=== PATIENT | female | born 1970 | race Caucasian/White ===

== ENCOUNTER 2016-10-25 08:46 | Day surgery (SDC) | payer MEDICAID ==
[~2016-10-25 08:46] MED LIST: ALDA100T PO; AMOX500C PO; FURO1TAB60 PO; LACT10SO PO; PROT40TA PO; VITATAB11 PO
[2016-10-25 09:32] VITALS: BP 98/59; PULSE 79; RESP 14; TEMP 98.5; O2SAT 100
[2016-10-25 10:57] VITALS: BP 124/71; PULSE 100; RESP 18; O2SAT 100
[2016-10-25 11:09] VITALS: BP 131/74; PULSE 96; RESP 18; O2SAT 98
[2016-10-25 12:06] VITALS: BP 115/69; PULSE 96; RESP 18; TEMP 98.8; O2SAT 100
[2016-10-25] MEDS ORDERED: ALBUMIN HUMAN 25% 12.5GM-W/25GM FOR 37.5GM IV ONE (12:30)
[2016-10-25] MEDS ORDERED: ALBUMIN HUMAN 25% 25GM-W/12.5GM FOR 37.5GM IV ONE (12:30)
[2016-10-25] MEDS ORDERED: HYDROmorphone HCL PF 1 MG/ML VIAL ONE (12:57)
[2016-10-25 13:25] VITALS: BP 118/64; PULSE 88; RESP 16; O2SAT 99
[2016-10-25] MEDS ORDERED: LIDOCAINE HCL 1% 30 ML VIAL ONE (14:09)
[2016-10-25] MEDS ORDERED: SODIUM BICARBONATE 8.4% INJ 50 ML ONE (14:09)
--- NOTE | 2016-10-25 14:22 | RADRPT ---
EXAM DATE/TIME: 10/25/2016 10:00 [facility] COMPARISON: No previous studies available for comparison. INDICATIONS : Ascites. MEDICAL HISTORY : Cirrhosis. Anemia. SURGICAL HISTORY : Hysterectomy. Cholecystectomy. section. Appendectomy. Tubal ligation. TIPS. ENCOUNTER: Sequela ACUITY: 2 weeks PAIN SCORE: 9/10 LOCATION: Left lower quadrant FLUID: Total volume of 6600 cc of clear, yellow fluid was removed. Fluid was discarded. Paracentesis was therapeutic only. Post procedure scanning reveals no hematoma or other complication. TECHNIQUE: 1. Ultrasound guidance for abdominal paracentesis. 2. Paracentesis. The risks, benefits, and alternatives to ultrasound guided paracentesis were explained to the patient in detail including the risk of bleeding and infection. Written and verbal informed consent was obt ained. With the patient on the ultrasound table, ultrasound imaging was used to select the most appropriate approach for paracentesis. Overlying skin was prepped and draped in the usual sterile fashion and wi th a local anesthetic, a dermatotomy was made with an 11 blade scalpel. A 6 Gambian Cit-K-cfepdysm ca theter was introduced into the peritoneal cavity and fluid was collected. The catheter was initially placed in the right lower quadrant however soon after placement the fluid stopped draining. The pat ter was adherent to perineum/bowel. The catheter was eventually withdrawn and a new catheter placed w ithin the left lower quadrant. Patient did experience pain in the right lower quadrant. The patient tolerated the procedure well and left the ultrasound suite in stable condition. CONCLUSION: Successful paracentesis. Samuel Delcid MD on October 25, 2016 at 14:19 Board Certified Radiologist. This report was verified electronically.
[2016-11-29] MEDS ORDERED: FERR325T PO (09:12)
[2016-11-29] MEDS ORDERED: LAMI1GEL TOPICAL (09:12)
[2016-11-29] MEDS ORDERED: AUGM500T7 PO (09:15)
[2016-12-06] MEDS ORDERED: AUGM500T7 PO (16:59)
[2016-12-06] MEDS ORDERED: PROT40TA PO ×2 (17:01→17:02)
[2017-02-14] MEDS ORDERED: PROT40TA PO (13:09)
== END 2016-10-25 13:45 | disposition home or self-care (01) ==
LOC: HRAD 08:46 → HRIP 08:46 → HRAD 13:45
PROVIDERS: ATTEND Family Medicine
DX: R18.8 Other ascites (principal)
CPT/HCPCS: 49083; 96365; C1729; J1170; J3010; P9047

== ENCOUNTER 2016-11-08 07:49 | Day surgery (SDC) | payer MEDICAID ==
[2016-11-08 08:16] VITALS: BP 118/66; PULSE 90; RESP 14; TEMP 97.5; O2SAT 99
[2016-11-08 10:20] VITALS: BP 123/65; PULSE 108; RESP 17; O2SAT 100
[2016-11-08 10:35] VITALS: BP 127/68; PULSE 97; RESP 18; O2SAT 100
[2016-11-08] MEDS ORDERED: ALBUMIN HUMAN 25% 50 GM IV ONE (10:45)
--- NOTE | 2016-11-08 12:06 | RADRPT ---
EXAM DATE/TIME: 11/08/2016 08:28 [facility] COMPARISON: EXTERNAL COMPARISON: US GUIDED ABD PARACENTESIS, October 25, 2016, 10:00. [facility], US ABDOMEN, COMPLETE, Oct [id number]. CT ABDOMEN & PELVIS W CONTRAST, June 19, 2016. INDICATIONS : Ascites. MEDICAL HISTORY : Cirrhosis. Hepatitis. Anemia. Ascites. SURGICAL HISTORY : Hysterectomy. Cholecystectomy. section. Appendectomy. Tubal ligation. TIPS. ENCOUNTER: Sequela ACUITY: 2 weeks PAIN SCORE: 6/10 LOCATION: Left lower quadrant FLUID: Total volume of 7700 cc of clear, yellow fluid was removed. Fluid was discarded. Paracentesis was therapeutic only. Post procedure scanning reveals no hematoma or other complication. TECHNIQUE: 1. Ultrasound guidance for abdominal paracentesis. 2. Paracentesis. The risks, benefits, and alternatives to ultrasound guided paracentesis were explained to the patient in detail including the risk of bleeding and infection. Written and verbal informed consent was obt ained. With the patient on the ultrasound table, ultrasound imaging was used to select the most appropriate approach for paracentesis. Overlying skin was prepped and draped in the usual sterile fashion and wi th a local anesthetic, a dermatotomy was made with an 11 blade scalpel. A 6 Irish Aoc-B-tywskkid ca theter was introduced into the peritoneal cavity and fluid was collected. The patient tolerated the procedure well and left the ultrasound suite in stable condition. CONCLUSION: Uncomplicated ultrasound guided paracentesis. Brian Bridges MD on November 08, 2016 at 12:05 Board Certified Radiologist. This report was verified electronically.
[2016-11-29] MEDS ORDERED: FERR325T PO (09:12)
[2016-11-29] MEDS ORDERED: LAMI1GEL TOPICAL (09:12)
[2016-11-29] MEDS ORDERED: AUGM500T7 PO (09:15)
[2016-12-06] MEDS ORDERED: AUGM500T7 PO (16:59)
[2016-12-06] MEDS ORDERED: PROT40TA PO ×2 (17:01→17:02)
[2017-02-14] MEDS ORDERED: PROT40TA PO (13:09)
== END 2016-11-08 11:20 | disposition home or self-care (01) ==
LOC: HRAD 07:49 → HRIP 07:50 → HRAD 11:20
PROVIDERS: ATTEND Family Medicine
DX: R18.8 Other ascites (principal)
CPT/HCPCS: 49083; 96365; C1729; P9047

== ENCOUNTER 2016-11-20 12:54 | Emergency (ER) | payer MEDICAID ==
[2016-11-20 12:55] VITALS: BP 125/68; PULSE 101; RESP 14; TEMP 98; O2SAT 97
--- NOTE | 2016-11-20 13:17 | PD ---
HPI Chief Complaint: ENT Complaint Time Seen by Provider: 13:17 Travel History International Travel<30 days: No Contact w/Intl Traveler<30days: No Traveled to known affect area: No History of Present Illness HPI 46-year-old female with history of cirrhosis, presents to emergency department for evaluation of epistaxis that resolved prior to arrival. Patient is followed by Dr. Bobby in the community clinic. She gets paracentesis outpatient for ascites secondary to cirrhosis. She states she has been doing relatively well and is waiting for her next appointment. States at times she does get short of breath which is normal for her with her ascites when it gets to be more. Patient denies seeing trauma. Her friend that is with her is concerned about the amount of blood she lost during her nosebleed. Patient denies any sensation of lightheadedness. No nausea, vomiting, diarrhea. A chest Tightness. No other symptoms to report. PFSH Past Medical History Hx Anticoagulant Therapy: No Arthritis: No Heart Rhythm Problems: No Cancer: No Cardiovascular Problems: No High Cholesterol: No Chemotherapy: No Chest Pain: No Congestive Heart Failure: No Cirrhosis: Yes Cerebrovascular Accident: No Diabetes: No Diminished Hearing: No Endocrine: No Gastrointestinal Disorders: Yes Genitourinary: No Hepatitis: Yes Immune Disorder: No Musculoskeletal: No Neurologic: No Psychiatric: No Reproductive: No Respiratory: Yes Migraines: No Seizures: No ?: Not Menopausal: No : 2 Para: 2 Tubal Ligation: Yes (7 years ago had a reversal) Past Surgical History Abdominal Surgery: Yes ( [facility] FRANCO IN 2014) Appendectomy: Yes Cardiac Surgery: No Section: Yes Cholecystectomy: Yes Ear Surgery: No Endocrine Surgery: No Eye Surgery: No Genitourinary Surgery: No Gynecologic Surgery: Yes (TWO C SECTIONS) Neurologic Surgery: No Oral Surgery: No Thoracic Surgery: No Other Surgery: Yes (TIPS) Social History Alcohol Use: Yes (in the past) Tobacco Use: No Substance Use: No Allergies-Medications (Allergen,Severity, Reaction): Coded Allergies: Mushroom (Verified Allergy, Mild, swollen, 11/20/16) *MDRO Multi-Drug Resistant Organism (Verified Adverse Reaction, Unknown, ) 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 Reported Meds & Prescriptions Reported Meds & Active Scripts Active Amoxicillin 500 Mg Cap 500 Mg PO TID Reported Vitamin B Complex (B-Complex Vitamins) 1 Tab 1 PO DAILY Lasix (Furosemide) 40 Mg Tab 40 Mg PO DAILY Lactulose Liq (Lactulose) 10 Gm/15 Ml Soln 30 Ml PO Q6H PRN Protonix (Pantoprazole Sodium) 40 Mg Tab 40 Mg PO DAILY Aldactone (Spironolactone) 100 Mg Tab 100 Mg PO BIDPC Review of Systems Except as stated in HPI: all other systems reviewed are Neg Physical Exam Narrative GENERAL: Well-nourished female patient, in no acute distress SKIN: Warm and dry. HEAD: Atraumatic. Normocephalic. EYES: Pupils equal and round. No scleral icterus. No injection or drainage. ENT: Mucosa pink and moist. No erythema or exudates. No uvular edema. No uvular , palatal, or tonsillar deviation. Airway patent. Nasal turbinates appear normal without nasal blood, purulent drainage or septal hematoma. NECK: Trachea midline. No JVD. CARDIOVASCULAR: Regular rate and rhythm. No murmur appreciated. RESPIRATORY: No accessory muscle use. Clear to auscultation. Breath sounds equal bilaterally. GASTROINTESTINAL: Abdomen soft, rotund, ascitic in nature.. MUSCULOSKELETAL: No obvious deformities. No clubbing. No cyanosis. No edema. NEUROLOGICAL: Awake and alert. No obvious cranial nerve deficits. Motor grossly within normal limits. Normal speech. Data Data Last Documented VS Vital Signs Date Time Temp Pulse Resp B/P Pulse Ox O2 Delivery O2 Flow Rate FiO2 11/20/16 12:55 98.0 101 14 125/68 97 Room Air MDM Medical Decision Making Medical Screen Exam Complete: Yes Emergency Medical Condition: Yes Medical Record Reviewed: Yes Differential Diagnosis epistaxis resolved versus recurrent epi sepsis versus nasal trauma Narrative Course 46 year-old female presents to the emergency department for evaluation of epistaxis. Translation is done to the patient's male partner in the room. Patient states that she gets these approximately every 3 months. She wanted to come for evaluation despite the bleeding resolving. Physical exam is overall reassuring. Patient does have an ascitic abdomen but is followed outpatient and has scheduled paracentesis for this. I offered reassurance. Patient is discharged to follow-up with Dr. Bobby. She is encouraged to return immediately with any acute worsening of symptoms. Diagnosis Primary Impression: Epistaxis, recurrent Referrals: Jacki Bobby MD Primary Care Physician Patient Instructions: Epistaxis (DC), General Instructions Med/Other Pt SpecificInfo: No Change to Meds Disposition: 01 DISCHARGE HOME Condition: Stable Kristi Betancourt Nov 20, 2016 13:17
[2016-11-29] MEDS ORDERED: FERR325T PO (09:12)
[2016-11-29] MEDS ORDERED: LAMI1GEL TOPICAL (09:12)
[2016-11-29] MEDS ORDERED: AUGM500T7 PO (09:15)
[2016-12-06] MEDS ORDERED: AUGM500T7 PO (16:59)
[2016-12-06] MEDS ORDERED: PROT40TA PO ×2 (17:01→17:02)
[2017-02-14] MEDS ORDERED: PROT40TA PO (13:09)
== END 2016-11-20 14:23 | disposition home or self-care (01) ==
LOC: NETRI 12:54
DX: R04.0 Epistaxis (principal)
CPT/HCPCS: 99283

== ENCOUNTER 2016-11-22 09:34 | Day surgery (SDC) | payer MEDICAID ==
[2016-11-22 10:01] VITALS: BP 121/71; PULSE 85; RESP 14; TEMP 98; O2SAT 100
[2016-11-22 11:35] VITALS: BP 119/69; PULSE 85; RESP 16; TEMP 98.3; O2SAT 100
[2016-11-22] MEDS ORDERED: ALBUMIN HUMAN 25% 25 GM/100 ML BAGP IV ONE (11:43)
[2016-11-22] MEDS ORDERED: ALBUMIN HUMAN 25% 12.5 GM/50 ML BAGP IV ONE (11:43)
[2016-11-22 11:50] VITALS: BP 115/67; PULSE 88; RESP 16; O2SAT 100
[2016-11-22 12:05] VITALS: BP 112/68; PULSE 91; RESP 16; O2SAT 100
[2016-11-22] MEDS ORDERED: ALBUMIN HUMAN 25% 50GM-W/12.5GM FOR 62.5GM IV ONE (12:30)
[2016-11-22] MEDS ORDERED: ALBUMIN HUMAN 25% 12.5GM-W/50GM FOR 62.5GM IV ONE (12:30)
--- NOTE | 2016-11-22 15:29 | RADRPT ---
EXAM DATE/TIME: 11/22/2016 10:01 [facility] COMPARISON: No previous studies available for comparison. EXTERNAL COMPARISON: [facility], US ABDOMEN, COMPLETE, Nov 07 2016, CT ABDOMEN AND PELVIS WITH CONTRAST 06/19/2016. INDICATIONS : Ascites. MEDICAL HISTORY : Cirrhosis. Hepatitis. Anemia. Ascites. SURGICAL HISTORY : Appendectomy. section. Cholecystectomy. Hysterectomy. Tubal ligation. TIPS. ENCOUNTER: Sequela ACUITY: 2 weeks PAIN SCORE: 1/10 LOCATION: Right lower quadrant FLUID: Total volume of 9,000 cc of clear, yellow fluid was removed. Fluid was discarded. Paracentesis was therapeutic only. Post procedure scanning reveals no hematoma or other complication. TECHNIQUE: 1. Ultrasound guidance for abdominal paracentesis. 2. Paracentesis. The risks, benefits, and alternatives to ultrasound guided paracentesis were explained to the patient in detail including the risk of bleeding and infection. Written and verbal informed consent was obt ained. With the patient on the ultrasound table, ultrasound imaging was used to select the most appropriate approach for paracentesis. Overlying skin was prepped and draped in the usual sterile fashion and wi th a local anesthetic, a dermatotomy was made with an 11 blade scalpel. A 6 Croatian Cng-I-sfjjmdjs ca theter was introduced into the peritoneal cavity and fluid was collected. The patient tolerated the procedure well and left the ultrasound suite in stable condition. CONCLUSION: Uncomplicated ultrasound guided paracentesis. Samuel Delcid MD on November 22, 2016 at 15:27 Board Certified Radiologist. This report was verified electronically.
[2016-11-29] MEDS ORDERED: LAMI1GEL TOPICAL (09:12)
[2016-11-29] MEDS ORDERED: FERR325T PO (09:12)
[2016-11-29] MEDS ORDERED: AUGM500T7 PO (09:15)
[2016-12-06] MEDS ORDERED: AUGM500T7 PO (16:59)
[2016-12-06] MEDS ORDERED: PROT40TA PO ×2 (17:01→17:02)
[2017-02-14] MEDS ORDERED: PROT40TA PO (13:09)
== END 2016-11-22 12:40 | disposition home or self-care (01) ==
LOC: HRAD 09:34 → HRIP 09:35 → HRAD 12:40
PROVIDERS: ATTEND Family Medicine
DX: R18.8 Other ascites (principal); D64.9 Anemia, unspecified
CPT/HCPCS: 49083; 96365; C1729; P9047

== ENCOUNTER 2016-12-04 09:28 | Day surgery (SDC) | payer MEDICAID ==
[~2016-12-04 09:28] MED LIST changes: -AMOX500C PO; +AUGM500T7 PO; +FERR325T PO; -LACT10SO PO; +LAMI1GEL TOPICAL
[2016-12-04 10:13] VITALS: BP 133/69; PULSE 84; RESP 14; TEMP 99; O2SAT 100
--- NOTE | 2016-12-04 11:01 | PD.RAD ---
Post US Procedure Prog Note Pre Procedure Diagnosis: (1) Ascites Post Procedure Diagnosis: (1) Ascites Procedure Date: Dec 04, 2016 Supervising Radiologist: Vinny Craft Proceduralist/Assist: Micheline Lopez RDMS Anesthesia: Local Plan of Activity Patient Condition: Good See PACS Report for procedural detail/treatment Drainage Procedure Procedure 1 Imaging Guidance: Ultrasound Side: Right Procedure Type: Paracentesis Latvian: 6 Drainage: Suction Fluid Description: Vinny Mejia MD Dec 04, 2016 11:01
[2016-12-04 12:15] VITALS: BP 109/61; PULSE 83; RESP 18; TEMP 98.3; O2SAT 100
[2016-12-04 12:30] VITALS: BP 105/61; PULSE 88; RESP 18; O2SAT 100
[2016-12-04] MEDS ORDERED: ALBUMIN HUMAN 25% 25 GM/100 ML BAGP IV ONE (12:30)
--- NOTE | 2016-12-04 12:51 | RADRPT ---
EXAM DATE/TIME: 12/04/2016 09:48 [facility] COMPARISON: No previous studies available for comparison. INDICATIONS : Ascites. MEDICAL HISTORY : Hepatitis. Cirrhosis. Anemia. Ascites. SURGICAL HISTORY : Hysterectomy. Cholecystectomy. section. Appendectomy. TIPS. Tubal ligation. ENCOUNTER: Sequela ACUITY: 1 day PAIN SCORE: 3/10 LOCATION: Right lower quadrant FLUID: Total volume of 7600 cc of clear, yellow fluid was removed. Fluid was discarded. Paracentesis was therapeutic only. Post procedure scanning reveals no hematoma or other complication. TECHNIQUE: 1. Ultrasound guidance for abdominal paracentesis. 2. Paracentesis. The risks, benefits, and alternatives to ultrasound guided paracentesis were explained to the patient in detail including the risk of bleeding and infection. Written and verbal informed consent was obt ained. With the patient on the ultrasound table, ultrasound imaging was used to select the most appropriate approach for paracentesis. Overlying skin was prepped and draped in the usual sterile fashion and wi th a local anesthetic, a dermatotomy was made with an 11 blade scalpel. A 6 Romanian Jqt-Q-hgnmavbr ca theter was introduced into the peritoneal cavity and fluid was collected. The patient tolerated the procedure well and left the ultrasound suite in stable condition. CONCLUSION: Uncomplicated ultrasound guided paracentesis. Vinny Craft MD on December 04, 2016 at 12:49 Board Certified Radiologist. This report was verified electronically.
[2016-12-06] MEDS ORDERED: AUGM500T7 PO (16:59)
[2016-12-06] MEDS ORDERED: PROT40TA PO ×2 (17:01→17:02)
[2017-02-14] MEDS ORDERED: PROT40TA PO (13:09)
== END 2016-12-04 13:15 | disposition home or self-care (01) ==
LOC: HRAD 09:28 → HRIP 09:44 → HRAD 13:15
PROVIDERS: ATTEND Family Medicine
DX: R18.8 Other ascites (principal)
CPT/HCPCS: 49083; C1729; P9047

== ENCOUNTER 2016-12-14 08:04 | Day surgery (SDC) | payer MEDICAID ==
[2016-12-14 08:25] VITALS: BP 142/90; PULSE 85; RESP 14; TEMP 98; O2SAT 100
[2016-12-14] MEDS ORDERED: ALBUMIN HUMAN 25% 25 GM/100 ML BAGP IV ONE (09:00)
[2016-12-14 09:45] VITALS: BP 132/71; PULSE 77; RESP 20; TEMP 97; O2SAT 100
[2016-12-14 10:00] VITALS: BP 116/66; PULSE 83; RESP 20; TEMP 97; O2SAT 100
--- NOTE | 2016-12-14 11:55 | RADRPT ---
EXAM DATE/TIME: 12/14/2016 08:21 [facility] COMPARISON: EXTERNAL COMPARISON: US GUIDED ABD PARACENTESIS, December 04, 2016, 9:48. [facility], US ABDOMEN, COMPLETE, Oct [id number], CT ABDOMEN AND PELVIS WITH CONTRAST 06/19/2016.. INDICATIONS : Ascites. MEDICAL HISTORY : Cirrhosis. Hepatitis. Anemia. SURGICAL HISTORY : Hysterectomy. Appendectomy. Cholecystectomy. Tubal ligation. TIPS. section. ENCOUNTER: Sequela ACUITY: 2 weeks PAIN SCORE: 0/10 LOCATION: Right lower quadrant FLUID: Total volume of 7,700 cc of clear, yellow fluid was removed. Fluid was discarded. Paracentesis was therapeutic only. Post procedure scanning reveals no hematoma or other complication. TECHNIQUE: 1. Ultrasound guidance for abdominal paracentesis. 2. Paracentesis. The risks, benefits, and alternatives to ultrasound guided paracentesis were explained to the patient in detail including the risk of bleeding and infection. Written and verbal informed consent was obt ained. With the patient on the ultrasound table, ultrasound imaging was used to select the most appropriate approach for paracentesis. Overlying skin was prepped and draped in the usual sterile fashion and wi th a local anesthetic, a dermatotomy was made with an 11 blade scalpel. A 6 Danish Ybc-J-tqpimdci ca theter was introduced into the peritoneal cavity and fluid was collected. The patient tolerated the procedure well and left the ultrasound suite in stable condition. CONCLUSION: Uncomplicated ultrasound guided paracentesis. Patient received albumin per protocol. Isael Curtis MD FACR on December 14, 2016 at 11:53 Board Certified Radiologist. This report was verified electronically.
[2016-12-14] MEDS ORDERED: BUPIVACAINE HCL PF 0.75% 10 ML VIAL ONE (15:14)
[2017-02-14] MEDS ORDERED: PROT40TA PO (13:09)
== END 2016-12-14 11:05 | disposition home or self-care (01) ==
LOC: HRAD 08:04 → HRIP 08:04 → HRAD 11:05
PROVIDERS: ATTEND Family Medicine
DX: R18.8 Other ascites (principal); K74.60 Unspecified cirrhosis of liver; D64.9 Anemia, unspecified
CPT/HCPCS: 49083; C1729; P9047

== ENCOUNTER 2016-12-28 07:33 | Day surgery (SDC) | payer MEDICAID ==
[2016-12-28 08:09] VITALS: BP 107/64; PULSE 67; RESP 14; TEMP 97; O2SAT 100
[2016-12-28 10:00] VITALS: BP 129/64; PULSE 79; RESP 16; TEMP 98.3; O2SAT 100
[2016-12-28] MEDS ORDERED: ALBUMIN HUMAN 25% 50 GM IV ONE (10:00)
[2016-12-28 10:15] VITALS: BP 129/64; PULSE 78; RESP 16; O2SAT 100
[2016-12-28 10:30] VITALS: BP 119/59; PULSE 79; RESP 16; O2SAT 100
--- NOTE | 2016-12-28 11:17 | RADRPT ---
EXAM DATE/TIME: 12/28/2016 08:24 [facility] COMPARISON: EXTERNAL COMPARISON: US GUIDED ABD PARACENTESIS, December 14, 2016, 8:21. [facility], US ABDOMEN, COMPLETE, Oct [id number]. INDICATIONS : Ascites. MEDICAL HISTORY : Cirrhosis. Hepatitis. Anemia. SURGICAL HISTORY : Hysterectomy. Appendectomy. Cholecystectomy. Tubal ligation. TIPS. section. ENCOUNTER: Sequela ACUITY: 1 week PAIN SCORE: 5/10 LOCATION: Right lower quadrant FLUID: Total volume of 7100 cc of clear, yellow fluid was removed. Fluid was discarded. Paracentesis was therapeutic only. Post procedure scanning reveals no hematoma or other complication. TECHNIQUE: 1. Ultrasound guidance for abdominal paracentesis. 2. Paracentesis. The risks, benefits, and alternatives to ultrasound guided paracentesis were explained to the patient in detail including the risk of bleeding and infection. Written and verbal informed consent was obt ained. With the patient on the ultrasound table, ultrasound imaging was used to select the most appropriate approach for paracentesis. Overlying skin was prepped and draped in the usual sterile fashion and wi th a local anesthetic, a dermatotomy was made with an 11 blade scalpel. A 6 Malay Nxg-O-btgfwcrl ca theter was introduced into the peritoneal cavity and fluid was collected. The patient tolerated the procedure well and left the ultrasound suite in stable condition. CONCLUSION: Uncomplicated ultrasound guided paracentesis. Vinny Pinto MD on December 28, 2016 at 11:16 Board Certified Radiologist. This report was verified electronically.
[2017-02-14] MEDS ORDERED: PROT40TA PO (13:09)
== END 2016-12-28 10:59 | disposition home or self-care (01) ==
LOC: HRAD 07:33 → HRIP 07:36 → HRAD 10:59
PROVIDERS: ATTEND Family Medicine
DX: R18.8 Other ascites (principal); D64.9 Anemia, unspecified
CPT/HCPCS: 49083; 96365; C1729; P9047

== ENCOUNTER 2017-01-15 07:42 | Day surgery (SDC) | payer MEDICAID ==
[~2017-01-15 07:42] MED LIST changes: -AUGM500T7 PO; -FERR325T PO; -LAMI1GEL TOPICAL
[2017-01-15 08:06] VITALS: BP 123/73; PULSE 89; RESP 14; TEMP 97.4; O2SAT 100
[2017-01-15 09:30] VITALS: BP 106/54; PULSE 86; RESP 18; RESP 20; TEMP 98.3; O2SAT 100
[2017-01-15] MEDS ORDERED: ALBUMIN HUMAN 25% 50 GM IV ONE (09:30)
[2017-01-15 09:44] VITALS: BP 110/56; PULSE 86; RESP 18; O2SAT 100
--- NOTE | 2017-01-15 11:06 | RADRPT ---
EXAM DATE/TIME: 01/15/2017 08:12 [facility] COMPARISON: EXTERNAL COMPARISON: US GUIDED ABD PARACENTESIS, December 28, 2016, 8:24. [facility], US ABDOMEN, COMPLETE, Nov 07. INDICATIONS : Ascites. MEDICAL HISTORY : Cirrhosis. Hepatitis. Anemia. SURGICAL HISTORY : Paracentesis. Hysterectomy. Appendectomy. Cholecystectomy. Tubal ligation. TIPS. section. ENCOUNTER: Sequela ACUITY: 2 weeks PAIN SCORE: 2/10 LOCATION: Left lower quadrant FLUID: Total volume of 7,800 cc of clear, yellow fluid was removed. Fluid was discarded. Paracentesis was therapeutic only. Post procedure scanning reveals no hematoma or other complication. TECHNIQUE: 1. Ultrasound guidance for abdominal paracentesis. 2. Paracentesis. The risks, benefits, and alternatives to ultrasound guided paracentesis were explained to the patient in detail including the risk of bleeding and infection. Written and verbal informed consent was obt ained. With the patient on the ultrasound table, ultrasound imaging was used to select the most appropriate approach for paracentesis. Overlying skin was prepped and draped in the usual sterile fashion and wi th a local anesthetic, a dermatotomy was made with an 11 blade scalpel. A 6 Pashto Ojv-F-clkszyzk ca theter was introduced into the peritoneal cavity and fluid was collected. The patient tolerated the procedure well and left the ultrasound suite in stable condition. CONCLUSION: Uncomplicated ultrasound guided paracentesis. Jefe Andrade MD on January 15, 2017 at 11:04 Board Certified Radiologist. This report was verified electronically.
[2017-02-14] MEDS ORDERED: PROT40TA PO (13:09)
== END 2017-01-15 10:10 | disposition home or self-care (01) ==
LOC: HRAD 07:42 → HRIP 07:49 → HRAD 10:10
PROVIDERS: ATTEND Family Medicine
DX: R18.8 Other ascites (principal); D64.9 Anemia, unspecified; Z90.710 Acquired absence of both cervix and uterus
CPT/HCPCS: 49083; 96365; C1729; P9047

== ENCOUNTER 2017-01-25 07:36 | Day surgery (SDC) | payer MEDICAID ==
[2017-01-25 09:12] VITALS: BP 124/72; PULSE 80; RESP 16; TEMP 97.2; O2SAT 100
[2017-01-25] MEDS ORDERED: ALBUMIN HUMAN 25% 25 GM/100 ML BAGP IV ONE (09:30)
[2017-01-25 10:20] VITALS: BP 115/67; PULSE 78; RESP 19; TEMP 97.8; O2SAT 100
[2017-01-25 10:35] VITALS: BP 122/70; PULSE 79; RESP 18; O2SAT 100
--- NOTE | 2017-01-25 11:44 | RADRPT ---
EXAM DATE/TIME: 01/25/2017 08:54 [facility] COMPARISON: EXTERNAL COMPARISON: US GUIDED ABD PARACENTESIS, January 15, 2017, 8:12. [facility], Ultrasound Abdomen, Nov 07. INDICATIONS : Ascites. MEDICAL HISTORY : Cirrhosis. Pancreatitis. Anemia. SURGICAL HISTORY : Paracentesis. Hysterectomy. Appendectomy. Cholecystectomy. Tubal ligation. TIPS. section. ENCOUNTER: Sequela ACUITY: 2 weeks PAIN SCORE: 0/10 LOCATION: Right lower quadrant FLUID: Total volume of 5,200 cc of clear, yellow fluid was removed. Fluid was discarded. Paracentesis was therapeutic only. Post procedure scanning reveals no hematoma or other complication. TECHNIQUE: 1. Ultrasound guidance for abdominal paracentesis. 2. Paracentesis. The risks, benefits, and alternatives to ultrasound guided paracentesis were explained to the patient in detail including the risk of bleeding and infection. Written and verbal informed consent was obt ained. With the patient on the ultrasound table, ultrasound imaging was used to select the most appropriate approach for paracentesis. Overlying skin was prepped and draped in the usual sterile fashion and wi th a local anesthetic, a dermatotomy was made with an 11 blade scalpel. A 6 Greenlandic Azw-R-ipjansop ca theter was introduced into the peritoneal cavity and fluid was collected. The patient tolerated the procedure well and left the ultrasound suite in stable condition. CONCLUSION: Uncomplicated ultrasound guided paracentesis. Patient received albumin per protocol. Isael Curtis MD FACR on January 25, 2017 at 11:42 Board Certified Radiologist. This report was verified electronically.
[2017-01-25] MEDS ORDERED: BUPIVACAINE HCL PF 0.75% 10 ML VIAL ONE (16:28)
[2017-02-14] MEDS ORDERED: PROT40TA PO (13:09)
== END 2017-01-25 11:25 | disposition home or self-care (01) ==
LOC: HRAD 07:36 → HRIP 07:37 → HRAD 11:25
PROVIDERS: ATTEND Family Medicine
DX: R18.8 Other ascites (principal); K85.90 Acute pancreatitis without necrosis or infection, unspecified; Z90.49 Acquired absence of other specified parts of digestive tract
CPT/HCPCS: 49083; 96365; C1729; P9047

== ENCOUNTER 2017-02-08 09:49 | Day surgery (SDC) | payer MEDICAID ==
[2017-02-08 10:23] VITALS: BP 107/66; PULSE 87; RESP 14; TEMP 97.3; O2SAT 100
[2017-02-08 11:15] VITALS: BP 117/68; PULSE 83; RESP 16; TEMP 98.5; O2SAT 100
[2017-02-08 11:30] VITALS: BP 120/67; PULSE 85; RESP 16; O2SAT 100
[2017-02-08] MEDS ORDERED: BUPIVACAINE HCL PF 0.75% 10 ML VIAL ONE (11:34)
[2017-02-08 11:45] VITALS: BP 110/65; PULSE 80; RESP 16; O2SAT 100
[2017-02-08] MEDS ORDERED: ALBUMIN HUMAN 25% 25 GM/100 ML BAGP IV ONE (11:45)
[2017-02-08 12:13] VITALS: BP 112/65; PULSE 86; RESP 16; O2SAT 100
--- NOTE | 2017-02-08 13:40 | RADRPT ---
EXAM DATE/TIME: 02/08/2017 10:07 [facility] COMPARISON: EXTERNAL COMPARISON: US GUIDED ABD PARACENTESIS, January 25, 2017, 8:54. [facility], US ABDOMEN, COMPLETE, Nov 07. INDICATIONS : Ascites. MEDICAL HISTORY : Cirrhosis. Pancreatitis. Anemia. SURGICAL HISTORY : Paracentesis. Hysterectomy. Appendectomy. Cholecystectomy. Tubal ligation. TIPS. section. ENCOUNTER: Sequela ACUITY: 2 weeks PAIN SCORE: 0/10 LOCATION: Right lower quadrant FLUID: Total volume of 6,200 cc of clear, yellow fluid was removed. Fluid was discarded. Paracentesis was therapeutic only. Post procedure scanning reveals no hematoma or other complication. TECHNIQUE: 1. Ultrasound guidance for abdominal paracentesis. 2. Paracentesis. The risks, benefits, and alternatives to ultrasound guided paracentesis were explained to the patient in detail including the risk of bleeding and infection. Written and verbal informed consent was obt ained. With the patient on the ultrasound table, ultrasound imaging was used to select the most appropriate approach for paracentesis. Overlying skin was prepped and draped in the usual sterile fashion and wi th a local anesthetic, a dermatotomy was made with an 11 blade scalpel. A 6 Georgian Mzk-K-ntijgfwe ca theter was introduced into the peritoneal cavity and fluid was collected. The patient tolerated the procedure well and left the ultrasound suite in stable condition. CONCLUSION: Uncomplicated ultrasound guided paracentesis. Patient received albumin per protocol. Isael Curtis MD FACR on February 08, 2017 at 13:38 Board Certified Radiologist. This report was verified electronically.
[2017-02-08] MEDS ORDERED: OXYC1CAP PO (20:41)
[2017-02-14] MEDS ORDERED: PROT40TA PO (13:09)
== END 2017-02-08 12:20 | disposition home or self-care (01) ==
LOC: HRAD 09:49 → HRIP 09:58 → HRAD 12:20
PROVIDERS: ATTEND Family Medicine
DX: R18.8 Other ascites (principal); K85.90 Acute pancreatitis without necrosis or infection, unspecified; Z90.49 Acquired absence of other specified parts of digestive tract
CPT/HCPCS: 49083; 96365; C1729; P9047

== ENCOUNTER 2017-02-08 17:02 | Emergency (ER) | payer MEDICAID ==
[~2017-02-08] VITALS: Ht 165.1 cm; Wt 74.0 kg
[2017-02-08 18:11] VITALS: BP 125/59; PULSE 90; RESP 17; TEMP 98.4; O2SAT 95
[2017-02-08] MEDS ORDERED: SODIUM CHLOR 0.9% 1000 ML INJ 1,000 ML IV SCH (18:25)
--- NOTE | 2017-02-08 18:25 | PD ---
HPI Chief Complaint: Abdominal Pain Time Seen by Provider: 18:22 Travel History International Travel<30 days: No Contact w/Intl Traveler<30days: No Traveled to known affect area: No History of Present Illness HPI 46-year-old female presents the emergency department with worsening abdominal pain since undergoing paracentesis earlier this morning for her chronic liver disease. Patient states she had 6.3 L of fluid removed earlier this morning and has since developed increasing generalized abdominal pain and discomfort. Patient is described as a generalized cramping which is an 8/10. Patient states she has had nausea, but denies vomiting or diarrhea. She denies urinary symptoms. She denies fever, chills, or other constitutional symptoms. Patient sees Dr. Garcia as PCP. Her liver specialist this in [place]. Patient speaks no Bahraini. 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 She has no known drug allergies. PFSH Past Medical History Hx Anticoagulant Therapy: No Arthritis: No Heart Rhythm Problems: No Cancer: No Cardiovascular Problems: No High Cholesterol: No Chemotherapy: No Chest Pain: No Congestive Heart Failure: No Cirrhosis: Yes Cerebrovascular Accident: No Diabetes: No Diminished Hearing: No Endocrine: No Gastrointestinal Disorders: Yes Genitourinary: No Hepatitis: Yes Immune Disorder: No Musculoskeletal: No Neurologic: No Psychiatric: No Reproductive: No Respiratory: Yes Migraines: No Seizures: No ?: Not LMP: 01/2017 Menopausal: No : 2 Para: 2 Tubal Ligation: Yes (7 years ago had a reversal) Past Surgical History Abdominal Surgery: Yes ( [facility] [place] 2014) Appendectomy: Yes Cardiac Surgery: No Section: Yes Cholecystectomy: Yes Ear Surgery: No Endocrine Surgery: No Eye Surgery: No Genitourinary Surgery: No Gynecologic Surgery: Yes (TWO C SECTIONS) Neurologic Surgery: No Oral Surgery: No Thoracic Surgery: No Other Surgery: Yes (TIPS) Social History Alcohol Use: Yes (in the past) Tobacco Use: No Substance Use: No Allergies-Medications (Allergen,Severity, Reaction): Coded Allergies: Mushroom (Verified Allergy, Mild, swollen, 02/08/17) *MDRO Multi-Drug Resistant Organism (Verified Adverse Reaction, Unknown, ) 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 Reported Meds & Prescriptions Reported Meds & Active Scripts Active Protonix (Pantoprazole Sodium) 40 Mg Tab 40 Mg PO DAILY Reported Lasix (Furosemide) 40 Mg Tab 40 Mg PO DAILY Aldactone (Spironolactone) 100 Mg Tab 100 Mg PO BIDPC Review of Systems Except as stated in HPI: all other systems reviewed are Neg General / Constitutional: No: Fever, Chills Eyes: No: Visual changes HENT: No: Headaches Cardiovascular: No: Chest Pain or Discomfort Respiratory: No: Shortness of Breath Gastrointestinal: Positive: Nausea, Abdominal Pain, Loss of Appetite, No: Vomiting, Diarrhea, Constipation, Changes in Bowel Habits Genitourinary: No: Dysuria Musculoskeletal: No: Pain Skin: No Rash Neurologic: No: Weakness Psychiatric: No: Depression Endocrine: No: Polydipsia Hematologic/Lymphatic: No: Easy Bruising Physical Exam Narrative GENERAL: Patient appears in moderate distress. SKIN: Warm and dry. Normal color. Normal turgor. Patient has a bandage on her right mid lower abdomen from her recent paracentesis. HEAD: Atraumatic. Normocephalic. EYES: Pupils equal and round. No scleral icterus. No injection or drainage. ENT: No nasal bleeding or discharge. Mucous membranes pink and moist. Pharynx is normal. Airway is patent. NECK: Trachea midline. No JVD. Supple nontender. CARDIOVASCULAR: Regular rate and rhythm. RESPIRATORY: No accessory muscle use. Clear to auscultation. Breath sounds equal bilaterally. GASTROINTESTINAL: Abdomen soft, generalized moderate tenderness, nondistended. No point tenderness or rebound noted. Hepatic and splenic margins not palpable. MUSCULOSKELETAL: Extremities without clubbing, cyanosis, or edema. No obvious deformities. NEUROLOGICAL: Awake and alert. No obvious cranial nerve deficits. Motor grossly within normal limits. Five out of 5 muscle strength in the arms and legs. Normal speech. PSYCHIATRIC: Appropriate mood and affect; insight and judgment normal. Data Data Last Documented VS Vital Signs Date Time Temp Pulse Resp B/P Pulse Ox O2 Delivery O2 Flow Rate FiO2 02/08/17 19:55 16 100 Room Air 02/08/17 19:52 98.4 80 111/59 Orders Complete Blood Count With Diff (02/08/17 18:25) Comprehensive Metabolic Panel (02/08/17 18:25) Lipase (02/08/17 18:25) Lactic Acid (4/21/17 18:25) Prothrombin Time / Inr (Pt) (02/08/17 18:25) Act Partial Throm Time (Ptt) (02/08/17 18:25) Urinalysis - C+S If Indicated (02/08/17 18:25) Ct Abd/Pel W Iv Contrast(Rout) (02/08/17 18:25) Iv Access Insert/Monitor (02/08/17 18:25) Ecg Monitoring (02/08/17 18:25) Oximetry (02/08/17 18:25) NPO (02/08/17 18:25) Morphine Inj (Morphine Inj) (02/08/17 18:30) Ondansetron Inj (Zofran Inj) (02/08/17 18:30) Sodium Chlor 0.9% 1000 Ml Inj (Ns 1000 M (02/08/17 18:25) Sodium Chloride 0.9% Flush (Ns Flush) (02/08/17 18:30) Electrocardiogram (02/08/17 18:25) Iohexol 350 Inj (Omnipaque 350 Inj) (02/08/17 20:01) Morphine Inj (Morphine Inj) (02/08/17 20:45) Labs Laboratory Tests Test 02/08/17 02/08/17 18:30 18:40 Urine Color YELLOW Urine Turbidity CLEAR Urine pH 7.0 Urine Specific [place] 1.020 Urine Protein TRACE mg/dL Urine Glucose (UA) NEG mg/dL Urine Ketones NEG mg/dL Urine Occult Blood NEG Urine Nitrite NEG Urine Bilirubin NEG Urine Urobilinogen 4.0 MG/DL Urine Leukocyte Esterase NEG Urine WBC LESS THAN 1 /hpf Urine Squamous Epithelial 5 /hpf Cells Urine Hyaline Casts 1 /lpf Microscopic Urinalysis Comment CULT NOT INDICATED White Blood Count 4.4 TH/MM3 Red Blood Count 3.77 MIL/MM3 Hemoglobin 10.8 GM/DL Hematocrit 33.0 % Mean Corpuscular Volume 87.5 FL Mean Corpuscular Hemoglobin 28.6 PG Mean Corpuscular Hemoglobin 32.7 % Concent Red Cell Distribution Width 14.8 % Platelet Count 134 TH/MM3 Mean Platelet Volume 7.2 FL Neutrophils (%) (Auto) 55.1 % Lymphocytes (%) (Auto) 30.1 % Monocytes (%) (Auto) 8.7 % Eosinophils (%) (Auto) 5.0 % Basophils (%) (Auto) 1.1 % Neutrophils # (Auto) 2.4 TH/MM3 Lymphocytes # (Auto) 1.3 TH/MM3 Monocytes # (Auto) 0.4 TH/MM3 Eosinophils # (Auto) 0.2 TH/MM3 Basophils # (Auto) 0.0 TH/MM3 CBC Comment DIFF FINAL Differential Comment Prothrombin Time 12.2 SEC Prothromb Time International 1.1 RATIO Ratio Activated Partial 27.8 SEC Thromboplast Time Sodium Level 142 MEQ/L Potassium Level 3.7 MEQ/L Chloride Level 109 MEQ/L Carbon Dioxide Level 24.8 MEQ/L Anion Gap 8 MEQ/L Blood Urea Nitrogen 11 MG/DL Creatinine 0.92 MG/DL Estimat Glomerular Filtration 65 ML/MIN Rate Random Glucose 109 MG/DL Lactic Acid Level 1.7 mmol/L Calcium Level 8.1 MG/DL Total Bilirubin 0.5 MG/DL Aspartate Amino Transf 19 U/L (AST/SGOT) Alanine Aminotransferase 15 U/L (ALT/SGPT) Alkaline Phosphatase 92 U/L Total Protein 5.4 GM/DL Albumin 2.5 GM/DL Lipase 200 U/L [facility] Medical Decision Making Medical Screen Exam Complete: Yes Emergency Medical Condition: Yes Medical Record Reviewed: Yes Differential Diagnosis Abdominal pain. Post-paracentesis. History of ascites. Possible peritonitis. Possible infection. Diverticulitis. UTI. Narrative Course Patient is medically stable at time of exam. Labs ordered including CBC, CMP, lactic acid, lipase, urinalysis. CT of abdomen and pelvis ordered with IV contrast. All the patient's labs are within normal limits without significant findings. CT the abdomen and pelvis showed no acute process per the radiologist. Patient improved with the medications that were given including 4 mg of morphine and 4 mg Zofran IV. Patient received an additional 2 mg morphine secondary to recurrent abdominal pain and cramping. Patient is felt stable for discharge home. She is given a prescription for oxycodone 5 mg 1 every 4-6 hours when necessary pain #12. Patient is rest and continue her other meds as previous. Patient follow with her primary care physician as needed. Patient may return to emergency Department with worsening symptoms as needed. Diagnosis Primary Impression: Cirrhosis Qualified Code: K74.60 - Cirrhosis of liver with ascites, unspecified hepatic cirrhosis type Additional Impression: Abdominal pain Qualified Code: R10.84 - Generalized abdominal pain Referrals: Primary Care Physician Patient Instructions: Acute Abdominal Pain (ED), General Instructions Additional Instructions: Patient is felt stable for discharge home. She is given a prescription for oxycodone 5 mg 1 every 4-6 hours when necessary pain #12. Patient is rest and continue her other meds as previous. Patient follow with her primary care physician as needed. Patient may return to emergency Department with worsening symptoms as needed. Med/Other Pt SpecificInfo: Prescription(s) given Scripts Oxycodone 5 Mg Cap5 Mg PO Q4H PRN (PAIN) #12 CAP Ref 0 Prov:Arash Powell MD 02/08/17 Disposition: 01 DISCHARGE HOME Condition: Stable Osmel Araujo Feb 08, 2017 18:25
[2017-02-08] MEDS ORDERED: SODIUM CHLORIDE 0.9% FLUSH 10 ML FLUSH IV FLUSH PRN (18:30)
[2017-02-08] MEDS ORDERED: ONDANSETRON HCL 4 MG/2 ML VIAL IVP ONE (18:30)
[2017-02-08] MEDS ORDERED: MORPHINE SULFATE 4 MG/ML INJ IV PUSH ONE ×2 (18:30→20:45)
[2017-02-08 18:55] LABS: AUTOMATED NEUTROPHIL # 2.4 TH/MM3 (1.8-7.7); BASOPHIL % 1.1 % (0.0-2.0); EOSINOPHIL # 0.2 TH/MM3 (0-0.4); HEMO FLAGS DIFF FINAL; LYMPH % 30.1 % (9.0-44.0); LYMPHOCYTE # 1.3 TH/MM3 (1.0-4.8); MEAN CELL VOLUME 87.5 FL (80.0-100.0); MEAN CORPUSCULAR HEMOGLOBIN 28.6 PG (27.0-34.0); MEAN CORPUSCULAR HGB CONC 32.7 % (32.0-36.0); MONO % 8.7 % (0.0-8.0); NEUT % 55.1 % (16.0-70.0); PLATELET COUNT 134 TH/MM3 (150-450); RED BLOOD COUNT 3.77 MIL/MM3 (4.00-5.30); RED CELL DISTRIBUTION WIDTH 14.8 % (11.6-17.2); WHITE BLOOD COUNT 4.4 TH/MM3 (4.0-11.0)
[2017-02-08 19:09] LABS: ANION GAP 8 MEQ/L (5-15); AST (GOT) 19 U/L (15-37); BICARBONATE 24.8 MEQ/L (21.0-32.0); BLOOD UREA NITROGEN 11 MG/DL (7-18); CHLORIDE 109 MEQ/L (98-107); GLOMERULAR FILTRATION RATE 65 ML/MIN (>89); POTASSIUM 3.7 MEQ/L (3.5-5.1); SODIUM (NA) 142 MEQ/L (136-145)
[2017-02-08 19:09] LABS: BLOOD, URINE NEG (NEG); COMMENT (UR) CULT NOT INDICATED; CULTURE IF INDICATED CULT NOT INDICATED; GLUCOSE,URINE NEG (NEG); HYALINE CAST, URINE 1 /lpf (RARE); KETONE, URINE NEG (NEG); NITRITE,URINE NEG (NEG); SQUAMOUS EPITHELIAL CELL URINE 5 /hpf (0-5); URINE COLOR YELLOW (YELLW/STRAW)
[2017-02-08 19:13] LABS: ALKALINE PHOSPHATASE 92 U/L (45-117); ALT (GPT) 15 U/L (10-53); TOTAL BILIRUBIN ADULT 0.5 MG/DL (0.2-1.0)
[2017-02-08 19:18] LABS: APTT (PATIENT) 27.8 SEC (24.3-30.1); INTERNATIONAL NORMALIZED RATIO 1.1 RATIO; PROTHROMBIN TIME - PATIENT 12.2 SEC (9.8-11.6)
[2017-02-08 19:52] VITALS: BP 111/59; PULSE 80; RESP 16; TEMP 98.4; O2SAT 100
[2017-02-08 19:55] VITALS: RESP 16; O2SAT 100
[2017-02-08] MEDS ORDERED: IOHEXOL 350 MG/ML 10 ML VIAL (for RAD DIAG) IV ONE (20:01)
--- NOTE | 2017-02-08 20:19 | RADRPT ---
EXAM DATE/TIME: 02/08/2017 19:58 [facility] COMPARISON: US GUIDED ABD PARACENTESIS, February 08, 2017, 10:07. CT ABDOMEN & PELVIS W CONTRAST, April 19, 2015, 1: 14. INDICATIONS : Increased pain after paracentesis. IV CONTRAST: 100 cc Omnipaque 350 (iohexol) IV ORAL CONTRAST: No oral contrast ingested. RADIATION DOSE: 5.41 CTDIvol (mGy) MEDICAL HISTORY : Cirrhosis. SURGICAL HISTORY : Cholecystectomy. Hysterectomy.paracentisis. ENCOUNTER: Initial ACUITY: 1 day PAIN SCALE: 6/10 LOCATION: Bilateral abdomen. TECHNIQUE: Volumetric scanning of the abdomen and pelvis was performed. Using automated exposure control and ad justment of the mA and/or kV according to patient size, radiation dose was kept as low as reasonably achievable to obtain optimal diagnostic quality images. FINDINGS: LOWER LUNGS: The visualized lower lungs are clear. LIVER: Homogeneous density without lesion. TIPS shunt noted. There is no dilation of the biliary tree. Chol ecystectomy clips. Moderate abdominal ascites which appears simple. SPLEEN: Normal size without lesion. PANCREAS: Within normal limits. KIDNEYS: Normal in size and shape. There is no mass, stone or hydronephrosis. ADRENAL GLANDS: Within normal limits. VASCULAR: There is no aortic aneurysm. BOWEL/MESENTERY: The stomach, small bowel, and colon demonstrate no acute abnormality. There is no free intraperitone al air or fluid. ABDOMINAL WALL: Periumbilical hernia containing fat and minimal fluid. RETROPERITONEUM: There is no lymphadenopathy. BLADDER: No wall thickening or mass. REPRODUCTIVE: Lobulated heterogeneous uterus. INGUINAL: There is no lymphadenopathy or hernia. MUSCULOSKELETAL: Within normal limits for patient age. CONCLUSION: 1. Abdominal ascites. 2. TIPS shunt. 3. Lobulated heterogeneous uterus. Samuel Delcid MD on February 08, 2017 at 20:14 Board Certified Radiologist. This report was verified electronically.
[2017-02-08] MEDS ORDERED: OXYC1CAP PO (20:41)
[2017-02-08 21:24] VITALS: BP 112/62; RESP 16; TEMP 98.5
--- NOTE | 2017-02-09 13:34 | EKG ---
Date Performed: 02/08/2017 Time Performed: 20:22:39 PTAGE: 46 years EKG: Sinus rhythm NORMAL ECG Compared to prior tracing no significant change PREVIOUS TRACING : 06/21/2016 22.26 DOCTOR: Robert Hirsch Interpretating Date/Time 02/09/2017 13:32:10
[2017-02-14] MEDS ORDERED: PROT40TA PO (13:09)
== END 2017-02-08 21:46 | disposition home or self-care (01) ==
LOC: NEPC 17:02
DX: K74.60 Unspecified cirrhosis of liver (principal); R18.8 Other ascites; R10.84 Generalized abdominal pain; R11.0 Nausea
CPT/HCPCS: 74177; 80053; 81001; 83605; 83690; 85025; 85610; 85730; 93005; 96361; 96374; 96375; 96376; 99284; J2270; J2405; J7030; Q9967

== ENCOUNTER 2017-02-21 07:57 | Day surgery (SDC) | payer MEDICAID ==
[~2017-02-21 07:57] MED LIST changes: +OXYC1CAP PO; -VITATAB11 PO
[2017-02-21 08:47] VITALS: BP 108/64; PULSE 83; RESP 14; TEMP 98.1; O2SAT 100
[2017-02-21 10:41] VITALS: BP 113/57; PULSE 89; RESP 19; TEMP 98.4; O2SAT 98
[2017-02-21] MEDS ORDERED: ALBUMIN HUMAN 25% 50 GM IV ONE (10:45)
[2017-02-21 10:56] VITALS: BP 110/56; PULSE 86; RESP 18; O2SAT 98
[2017-02-21] MEDS ORDERED: HYDROmorphone HCL 2 MG TAB PO ONE (12:15)
--- NOTE | 2017-02-21 14:14 | RADRPT ---
EXAM DATE/TIME: 02/21/2017 08:37 [facility] COMPARISON: CT ABDOMEN & PELVIS W CONTRAST, February 08, 2017, 19:58. US GUIDED ABD PARACENTESIS, February 08, 2017, 1 0:07. INDICATIONS : Ascites. MEDICAL HISTORY : Cirrhosis. Panreatitits. Anemia. SURGICAL HISTORY : Hysterectomy. Appendectomy. Cholecystectomy. Paracentesis. Tubal ligation. TIPS. . ENCOUNTER: Sequela ACUITY: 2 weeks PAIN SCORE: 3/10 LOCATION: Left lower quadrant FLUID: Total volume of 7,400 cc of clear, yellow fluid was removed. Fluid was discarded. Paracentesis was therapeutic only. Post procedure scanning reveals no hematoma or other complication. TECHNIQUE: 1. Ultrasound guidance for abdominal paracentesis. 2. Paracentesis. The risks, benefits, and alternatives to ultrasound guided paracentesis were explained to the patient in detail including the risk of bleeding and infection. Written and verbal informed consent was obt ained. With the patient on the ultrasound table, ultrasound imaging was used to select the most appropriate approach for paracentesis. Overlying skin was prepped and draped in the usual sterile fashion and wi th a local anesthetic, a dermatotomy was made with an 11 blade scalpel. A 6 Congolese Xvs-[id number] ca theter was introduced into the peritoneal cavity and fluid was collected. The patient tolerated the procedure well and left the ultrasound suite in stable condition. CONCLUSION: Uncomplicated ultrasound guided paracentesis. Vinny Pinto MD on February 21, 2017 at 14:11 Board Certified Radiologist. This report was verified electronically.
== END 2017-02-21 12:45 | disposition home or self-care (01) ==
LOC: HRAD 07:57 → HRIP 08:49 → HRAD 12:45
PROVIDERS: ATTEND Family Medicine
DX: R18.8 Other ascites (principal); D64.9 Anemia, unspecified; K74.60 Unspecified cirrhosis of liver; K86.1 Other chronic pancreatitis
CPT/HCPCS: 49083; 96365; C1729; P9047

== ENCOUNTER 2017-03-07 10:03 | Day surgery (SDC) | payer MEDICAID ==
[2017-03-07 10:59] VITALS: BP 120/67; PULSE 83; RESP 14; TEMP 97; O2SAT 100
[2017-03-07] MEDS ORDERED: ALBUMIN HUMAN 25% 25 GM/100 ML BAGP IV ONE (12:29)
[2017-03-07] MEDS ORDERED: ALBUMIN HUMAN 25% 50 GM IV ONE (12:30)
--- NOTE | 2017-03-07 12:39 | RADRPT ---
EXAM DATE/TIME: 03/07/2017 10:53 [facility] COMPARISON: US GUIDED ABD PARACENTESIS, February 21, 2017, 8:37. INDICATIONS : Ascites. MEDICAL HISTORY : Alcohol abuse SURGICAL HISTORY : Tipps procedure ENCOUNTER: Subsequent ACUITY: 2 weeks PAIN SCORE: 0/10 LOCATION: Right lower quadrant FLUID: Total volume of 7900 cc of clear, yellow fluid was removed. Fluid was discarded. Paracentesis was therapeutic only. Post procedure scanning reveals no hematoma or other complication. TECHNIQUE: 1. Ultrasound guidance for abdominal paracentesis. 2. Paracentesis. The risks, benefits, and alternatives to ultrasound guided paracentesis were explained to the patient in detail including the risk of bleeding and infection. Written and verbal informed consent was obt ained. With the patient on the ultrasound table, ultrasound imaging was used to select the most appropriate approach for paracentesis. Overlying skin was prepped and draped in the usual sterile fashion and wi th a local anesthetic, a dermatotomy was made with an 11 blade scalpel. A 6 Angolan [id number] ca theter was introduced into the peritoneal cavity and fluid was collected. The patient tolerated the procedure well and left the ultrasound suite in stable condition. CONCLUSION: Uncomplicated ultrasound guided paracentesis. Jefe Andrade MD on March 07, 2017 at 12:37 Board Certified Radiologist. This report was verified electronically.
== END 2017-03-07 13:30 | disposition home or self-care (01) ==
LOC: HRAD 10:03 → HRIP 10:41 → HRAD 13:30
PROVIDERS: ATTEND Family Medicine
DX: R18.8 Other ascites (principal)
CPT/HCPCS: 49083; 96365; C1729; P9047

== ENCOUNTER 2017-03-22 09:40 | Day surgery (SDC) | payer MEDICAID ==
[2017-03-22 10:35] VITALS: BP 131/74; PULSE 86; RESP 16; TEMP 98.8; O2SAT 100
[2017-03-22] MEDS ORDERED: LIDOCAINE HCL 1% PF 30 ML VIAL ONE (11:34)
--- NOTE | 2017-03-22 12:25 | RADRPT ---
EXAM DATE/TIME: 03/22/2017 10:19 [facility] COMPARISON: US GUIDED ABD PARACENTESIS, March 07, 2017, 10:53. INDICATIONS : Ascities. MEDICAL HISTORY : Cirrhosis. Hepatitis. Alcohol abuse. Respiratory disorders. Gallbladder disease. SURGICAL HISTORY : Appendectomy. Cholecystectomy. section. Tips procedure. Tubal ligation Reversal 7 years ago. ENCOUNTER: Sequela ACUITY: > 1 yr PAIN SCORE: 2/10 LOCATION: Left lower quadrant FLUID: Total volume of 8,600 cc of clear, yellow fluid was removed. Fluid was discarded. Paracentesis was therapeutic only. TECHNIQUE: 1. Ultrasound guidance for abdominal paracentesis. 2. Paracentesis. The risks, benefits, and alternatives to ultrasound guided paracentesis were explained to the patient in detail including the risk of bleeding and infection. Written and verbal informed consent was obt ained. With the patient on the ultrasound table, ultrasound imaging was used to select the most appropriate approach for paracentesis. Overlying skin was prepped and draped in the usual sterile fashion and wi th a local anesthetic, a dermatotomy was made with an 11 blade scalpel. A 6 Bengali [id number] ca theter was introduced into the peritoneal cavity and fluid was collected. The patient tolerated the procedure well and left the ultrasound suite in stable condition. CONCLUSION: Uncomplicated ultrasound guided paracentesis. Tereso Root MD on March 22, 2017 at 12:22 Board Certified Radiologist. This report was verified electronically.
[2017-03-22 12:30] VITALS: BP 113/64; PULSE 88; RESP 16; TEMP 98.7; O2SAT 100
[2017-03-22 12:44] VITALS: BP 102/63; PULSE 90; RESP 16; O2SAT 100
[2017-03-22] MEDS ORDERED: ALBUMIN HUMAN 25% 50 GM IV ONE (12:45)
[2017-03-22 12:59] VITALS: BP 99/57; PULSE 93; RESP 16; O2SAT 100
== END 2017-03-22 13:16 | disposition home or self-care (01) ==
LOC: HRAD 09:40 → HRIP 09:44 → HRAD 13:16
PROVIDERS: ATTEND Family Medicine
DX: K70.31 Alcoholic cirrhosis of liver with ascites (principal); Z91.018 Allergy to other foods
CPT/HCPCS: 49083; 96365; C1729; P9047

== ENCOUNTER 2017-04-05 09:31 | Day surgery (SDC) | payer MEDICAID ==
[~2017-04-05 09:31] MED LIST changes: -ALDA100T PO; -OXYC1CAP PO
[2017-04-05 10:14] VITALS: BP 119/69; PULSE 86; RESP 14; TEMP 98.7; O2SAT 100
[2017-04-05] MEDS ORDERED: LIDOCAINE HCL 1% PF 30 ML VIAL ONE (11:32)
[2017-04-05 12:11] VITALS: BP 114/58; PULSE 85; RESP 20; TEMP 98.4; O2SAT 99
[2017-04-05 12:30] VITALS: BP 106/66; PULSE 90; RESP 16; O2SAT 98
[2017-04-05] MEDS ORDERED: ALBUMIN HUMAN 25% 25 GM/100 ML BAGP IV ONE (12:30)
--- NOTE | 2017-04-05 12:51 | RADRPT ---
EXAM DATE/TIME: 04/05/2017 10:23 [facility] COMPARISON: EXTERNAL COMPARISON: US GUIDED ABD PARACENTESIS, March 22, 2017, 10:19. [facility], US ABDOMEN COMPLETE, Nov 07 INDICATIONS : Ascites. MEDICAL HISTORY : Cirrhosis. Hepatitis. Alcohol abuse. Respiratory disorders. Gallbladder disease. SURGICAL HISTORY : Appendectomy. Cholecystectomy. section. Tips procedure. Tubal ligation Reversal 7 years ago. ENCOUNTER: Sequela ACUITY: 2 weeks PAIN SCORE: 0/10 LOCATION: Right lower quadrant FLUID: Total volume of 8700 cc of clear, yellow fluid was removed. Fluid was discarded. Paracentesis was therapeutic only. Post procedure scanning reveals no hematoma or other complication. TECHNIQUE: 1. Ultrasound guidance for abdominal paracentesis. 2. Paracentesis. The risks, benefits, and alternatives to ultrasound guided paracentesis were explained to the patient in detail including the risk of bleeding and infection. Written and verbal informed consent was obt ained. With the patient on the ultrasound table, ultrasound imaging was used to select the most appropriate approach for paracentesis. Overlying skin was prepped and draped in the usual sterile fashion and wi th a local anesthetic, a dermatotomy was made with an 11 blade scalpel. A 6 German [id number] ca theter was introduced into the peritoneal cavity and fluid was collected. The patient tolerated the procedure well and left the ultrasound suite in stable condition. CONCLUSION: Uncomplicated ultrasound guided paracentesis. Patient received albumin per protocol. Isael Curtis MD FACR on April 05, 2017 at 12:48 Board Certified Radiologist. This report was verified electronically.
[2017-04-05 13:23] VITALS: BP 97/56; PULSE 92; RESP 18; O2SAT 97
== END 2017-04-05 13:30 | disposition home or self-care (01) ==
LOC: HRAD 09:31 → HRIP 09:34 → HRAD 13:30
PROVIDERS: ATTEND Family Medicine
DX: R18.8 Other ascites (principal); K74.60 Unspecified cirrhosis of liver
CPT/HCPCS: 49083; 96365; C1729; P9047

== ENCOUNTER 2017-04-15 17:10 | Emergency (ER) | payer MEDICAID ==
[~2017-04-15] VITALS: Ht 157.5 cm; Wt 80.0 kg
[2017-04-15 17:12] VITALS: BP 150/90; PULSE 100; RESP 24; TEMP 98.7; O2SAT 99
--- NOTE | 2017-04-15 17:21 | PD ---
Physical Exam Time Seen by Provider: 17:19 Narrative 46yo F c/o abd pain and distention. Had paracentesis 8 days ago. +vomiting this morning. Temo fevers. Patient seen in triage. VS reviewed. Awaiting bed placement. Data Data Last Documented VS Vital Signs Date Time Temp Pulse Resp B/P Pulse Ox O2 Delivery O2 Flow Rate FiO2 04/15/17 17:12 98.7 100 24 150/90 99 Room Air MDM Supervised Visit with SUSAN: Pat Jin Apr 15, 2017 17:20
--- NOTE | 2017-04-15 18:52 | PD ---
HPI Chief Complaint: Abdominal Pain Time Seen by Provider: 18:52 Travel History International Travel<30 days: No Contact w/Intl Traveler<30days: No Traveled to known affect area: No History of Present Illness HPI 46-year-old female with history of alcoholic cirrhosis, ascites requiring recurrent paracentesis, presents to emergency department for evaluation of abdominal pain. Patient reports generalized abdominal pain is greater on the left. Reports mild nausea with an episode of vomiting this morning. This was not coffee ground nor toño red. Abrasion states the pain began yesterday. She has had no changes in bowel or bladder. No fever or chills. She is followed by Dr. Bobby. She is accompanied by her family. She has no other symptoms reported this time. PFSH Past Medical History Hx Anticoagulant Therapy: No Arthritis: No Heart Rhythm Problems: No Cancer: No Cardiovascular Problems: No High Cholesterol: No Chemotherapy: No Chest Pain: No Congestive Heart Failure: No Cirrhosis: Yes Cerebrovascular Accident: No Diabetes: No Diminished Hearing: No Endocrine: No Gastrointestinal Disorders: Yes Genitourinary: No Hepatitis: Yes Immune Disorder: No Musculoskeletal: No Neurologic: No Psychiatric: No Reproductive: No Respiratory: Yes Migraines: No Seizures: No Menopausal: No : 2 Para: 2 Tubal Ligation: Yes (7 years ago had a reversal) Past Surgical History Abdominal Surgery: Yes ( LAP FRANCO IN 2014) Appendectomy: Yes Cardiac Surgery: No Section: Yes Cholecystectomy: Yes Ear Surgery: No Endocrine Surgery: No Eye Surgery: No Genitourinary Surgery: No Gynecologic Surgery: Yes (TWO C SECTIONS) Neurologic Surgery: No Oral Surgery: No Thoracic Surgery: No Other Surgery: Yes (TIPS) Social History Alcohol Use: Yes (in the past) Tobacco Use: No Substance Use: No Allergies-Medications (Allergen,Severity, Reaction): Coded Allergies: Mushroom (Verified Allergy, Mild, swollen, 03/28/17) *MDRO Multi-Drug Resistant Organism (Verified Adverse Reaction, Unknown, ) 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 Reported Meds & Prescriptions Reported Meds & Active Scripts Active Protonix (Pantoprazole Sodium) 40 Mg Tab 40 Mg PO DAILY Reported Spironolactone 100 Mg Tab 100 Mg PO BIDPC Lasix (Furosemide) 40 Mg Tab 120 Mg PO DAILY Review of Systems Except as stated in HPI: all other systems reviewed are Neg Physical Exam Narrative GENERAL: Well-nourished female patient, lying in bed, in no acute distress. SKIN: Focused skin assessment warm/dry. HEAD: Atraumatic. Normocephalic. EYES: Pupils equal and round. No scleral icterus. No injection or drainage. ENT: No nasal bleeding or discharge. Mucous membranes pink and moist. NECK: Trachea midline. No JVD. CARDIOVASCULAR: Elevated rate and rhythm. RESPIRATORY: No accessory muscle use. Clear to auscultation. Breath sounds equal bilaterally. GASTROINTESTINAL: Ascitic Abdomen rotund, soft, generalized tenderness.. No peritoneal signs. MUSCULOSKELETAL: No obvious deformities. No clubbing. No cyanosis. No edema. NEUROLOGICAL: Awake and alert. No obvious cranial nerve deficits. Motor grossly within normal limits. Normal speech. Data Data Last Documented VS Vital Signs Date Time Temp Pulse Resp B/P Pulse Ox O2 Delivery O2 Flow Rate FiO2 04/15/17 21:30 85 19 139/78 99 Room Air 04/15/17 17:12 98.7 Orders Complete Blood Count With Diff (04/15/17 19:02) Comprehensive Metabolic Panel (04/15/17 19:02) Lipase (04/15/17 19:02) Prothrombin Time / Inr (Pt) (04/15/17 19:02) Act Partial Throm Time (Ptt) (04/15/17 19:02) Ct Abd/Pel W Iv Contrast(Rout) (04/15/17 19:02) Iv Access Insert/Monitor (04/15/17 19:02) Ecg Monitoring (04/15/17 19:02) Oximetry (04/15/17 19:02) Ondansetron Inj (Zofran Inj) (04/15/17 19:15) Sodium Chloride 0.9% Flush (Ns Flush) (04/15/17 19:15) Abdomen, Upright Only (04/15/17 19:02) Morphine Inj (Morphine Inj) (04/15/17 20:30) Prochlorperazine Inj (Compazine Inj) (04/15/17 20:30) Diphenhydramine Inj (Benadryl Inj) (04/15/17 20:30) Labs Laboratory Tests Test 04/15/17 19:39 White Blood Count 8.7 TH/MM3 Red Blood Count 4.39 MIL/MM3 Hemoglobin 12.8 GM/DL Hematocrit 38.0 % Mean Corpuscular Volume 86.5 FL Mean Corpuscular Hemoglobin 29.1 PG Mean Corpuscular Hemoglobin 33.7 % Concent Red Cell Distribution Width 15.4 % Platelet Count 213 TH/MM3 Mean Platelet Volume 9.6 FL Neutrophils (%) (Auto) 65.7 % Lymphocytes (%) (Auto) 23.9 % Monocytes (%) (Auto) 6.9 % Eosinophils (%) (Auto) 2.6 % Basophils (%) (Auto) 0.9 % Neutrophils # (Auto) 5.7 TH/MM3 Lymphocytes # (Auto) 2.1 TH/MM3 Monocytes # (Auto) 0.6 TH/MM3 Eosinophils # (Auto) 0.2 TH/MM3 Basophils # (Auto) 0.1 TH/MM3 CBC Comment DIFF FINAL Differential Comment Prothrombin Time 11.1 SEC Prothromb Time International 1.0 RATIO Ratio Activated Partial 20.6 SEC Thromboplast Time Sodium Level 137 MEQ/L Potassium Level 4.8 MEQ/L Chloride Level 105 MEQ/L Carbon Dioxide Level 25.4 MEQ/L Anion Gap 7 MEQ/L Blood Urea Nitrogen 14 MG/DL Creatinine 1.00 MG/DL Estimat Glomerular Filtration 59 ML/MIN Rate Random Glucose 88 MG/DL Calcium Level 8.1 MG/DL Total Bilirubin 0.6 MG/DL Aspartate Amino Transf 49 U/L (AST/SGOT) Alanine Aminotransferase 21 U/L (ALT/SGPT) Alkaline Phosphatase 93 U/L Total Protein 6.0 GM/DL Albumin 2.8 GM/DL Lipase 199 U/L [facility] Medical Decision Making Medical Screen Exam Complete: Yes Emergency Medical Condition: Yes Medical Record Reviewed: Yes Differential Diagnosis Ascites versus peritonitis versus pancreatitis versus gastritis Narrative Course 46 year-old female presents emergency room for evaluation of abdominal pain. Patient appears in mild distress secondary to pain. Her vital signs are stable. CBC is without acute concern. CMP is consistent previous lab work. INR is 1. Patient does have tenderness also to palpation of the abdomen however she has history of ascites and frequent need for thoracentesis. Abdominal x-ray shows limited exam demonstrating no evidence of free air. CT shows moderate to large amount of ascitic fluid which is increased from the prior study. TIPS shunt catheter again noted in the liver. The liver is stable in appearance. Umbilical hernia containing ascitic fluid. The uterus remains diffusely inhomogenous patient has been treated for pain. Upon reassessment she verbalizes marked improvement in her symptoms. She is ready to be discharged home. Patient is provided an outpatient form for ultrasound guided paracentesis. She agrees to follow-up with Dr. Bobby. Diagnosis Primary Impression: Ascites Qualified Code: K70.31 - Ascites due to alcoholic cirrhosis Additional Impression: Abdominal pain Qualified Code: R10.84 - Generalized abdominal pain Referrals: Jacki Bobby MD Patient Instructions: Ascites (ED), General Instructions Additional Instructions: Schedule outpatient paracentesis Follow instructions on the outpatient testing sheet Follow-up the primary care provider Return immediately with any acute worsening symptoms Med/Other Pt SpecificInfo: No Change to Meds Disposition: 01 DISCHARGE HOME Condition: Stable Kristi Betancourt Apr 15, 2017 18:52
[2017-04-15] MEDS ORDERED: SODIUM CHLORIDE 0.9% FLUSH 10 ML FLUSH IV FLUSH PRN (19:15)
[2017-04-15] MEDS ORDERED: ONDANSETRON HCL 4 MG/2 ML VIAL IVP ONE (19:15)
[2017-04-15 19:20] VITALS: RESP 16; O2SAT 98
--- NOTE | 2017-04-15 19:28 | RADRPT ---
EXAM DATE/TIME: 04/15/2017 19:02 [facility] COMPARISON: CT ABDOMEN & PELVIS W CONTRAST, February 08, 2017, 19:58. INDICATIONS : Abdominal pain. Acites. MEDICAL HISTORY : Cirrhosis. Hepatitis. Galbladder disease. SURGICAL HISTORY : Appendectomy. Cholecystectomy. section. Tips procedure. Tubal ENCOUNTER: Initial ACUITY: 1 day PAIN SCORE: Non-responsive. LOCATION: Bilateral abdomen. FINDINGS: A single AP erect view of the mid and upper abdomen was obtained and demonstrates no evidence of free air. The TIPS catheter is again noted. The bowel loops appear displaced centrally from known ascites . The lung bases are clear. The bony structures are intact. There is no evidence of obstruction. CONCLUSION: 1. Limited exam demonstrating no evidence of free air. 2. Apparent ascites. Cleve Villegas MD on April 15, 2017 at 19:25 Board Certified Radiologist. This report was verified electronically.
[2017-04-15] MEDS ORDERED: SPIR100T PO (19:53)
[2017-04-15 19:59] LABS: AUTOMATED NEUTROPHIL # 5.7 TH/MM3 (1.8-7.7); BASOPHIL # 0.1 TH/MM3 (0-0.2); BASOPHIL % 0.9 % (0.0-2.0); EOSINOPHIL # 0.2 TH/MM3 (0-0.4); EOSINOPHIL % 2.6 % (0.0-4.0); LYMPH % 23.9 % (9.0-44.0); LYMPHOCYTE # 2.1 TH/MM3 (1.0-4.8); MEAN CELL VOLUME 86.5 FL (80.0-100.0); MEAN CORPUSCULAR HEMOGLOBIN 29.1 PG (27.0-34.0); MEAN CORPUSCULAR HGB CONC 33.7 % (32.0-36.0); MONO % 6.9 % (0.0-8.0); NEUT % 65.7 % (16.0-70.0); RED BLOOD COUNT 4.39 MIL/MM3 (4.00-5.30); RED CELL DISTRIBUTION WIDTH 15.4 % (11.6-17.2); WHITE BLOOD COUNT 8.7 TH/MM3 (4.0-11.0)
[2017-04-15 20:10] LABS: HEMO FLAGS DIFF FINAL; PLATELET COUNT 213 TH/MM3 (150-450)
[2017-04-15 20:16] LABS: PROTHROMBIN TIME - PATIENT 11.1 SEC (9.8-11.6)
[2017-04-15 20:19] LABS: APTT (PATIENT) 20.6 SEC (24.3-30.1)
[2017-04-15 20:21] LABS: ALT (GPT) 21 U/L (10-53)
[2017-04-15 20:24] LABS: ALKALINE PHOSPHATASE 93 U/L (45-117); TOTAL BILIRUBIN ADULT 0.6 MG/DL (0.2-1.0)
[2017-04-15 20:28] LABS: ANION GAP 7 MEQ/L (5-15); AST (GOT) 49 U/L (15-37); BICARBONATE 25.4 MEQ/L (21.0-32.0); BLOOD UREA NITROGEN 14 MG/DL (7-18); CHLORIDE 105 MEQ/L (98-107); GLOMERULAR FILTRATION RATE 59 ML/MIN (>89); SODIUM (NA) 137 MEQ/L (136-145)
[2017-04-15] MEDS ORDERED: PROCHLORPERAZINE INJ 10 MG/2 ML VIAL IV PUSH ONE (20:30)
[2017-04-15] MEDS ORDERED: MORPHINE SULFATE 4 MG/ML INJ IV PUSH ONE (20:30)
[2017-04-15] MEDS ORDERED: diphenhydrAMINE HCL 50 MG/ML VIAL IV PUSH ONE (20:30)
[2017-04-15 20:35] LABS: POTASSIUM 4.8 MEQ/L (3.5-5.1)
[2017-04-15] MEDS ORDERED: IOHEXOL 350 MG/ML 10 ML VIAL (for RAD DIAG) IV ONE (20:51)
--- NOTE | 2017-04-15 21:05 | RADRPT ---
EXAM DATE/TIME: 04/15/2017 20:51 [facility] COMPARISON: CT ABDOMEN & PELVIS W CONTRAST, February 08, 2017, 19:58. INDICATIONS : Abdominal pain with distention. Nausea and vomiting. Paracentesis 8 days ago. IV CONTRAST: 98 cc Omnipaque 350 (iohexol) IV ORAL CONTRAST: No oral contrast ingested. RADIATION DOSE: 14.63 CTDIvol (mGy) MEDICAL HISTORY : Cirrhosis. Hepatitis. SURGICAL HISTORY : Appendectomy. Cholecystectomy. section.Hysterectomy. ENCOUNTER: Initial ACUITY: 1 week PAIN SCALE: 5/10 LOCATION: Bilateral abdomen TECHNIQUE: Volumetric scanning of the abdomen and pelvis was performed. Using automated exposure control and ad justment of the mA and/or kV according to patient size, radiation dose was kept as low as reasonably achievable to obtain optimal diagnostic quality images. DICOM format image data is available electro nically for review and comparison. FINDINGS: LOWER LUNGS: The visualized lower lungs are clear. LIVER: Homogeneous density without lesion. There is no dilation of the biliary tree. No calcified gallston es. A TIPS shunt catheter is again noted in the liver. SPLEEN: Normal size without lesion. PANCREAS: Within normal limits. KIDNEYS: Normal in size and shape. There is no mass, stone or hydronephrosis. ADRENAL GLANDS: Within normal limits. VASCULAR: There is no aortic aneurysm. BOWEL/MESENTERY: There is a moderate to large amount of ascitic fluid present compressing the bowel loops centrally. T his is increased from the prior study. ABDOMINAL WALL: Periumbilical hernia is again noted which contains ascitic fluid. RETROPERITONEUM: There is no lymphadenopathy. BLADDER: No wall thickening or mass. REPRODUCTIVE: The uterus remains diffusely homogeneous and lobular in contour. INGUINAL: There is no lymphadenopathy or hernia. MUSCULOSKELETAL: Within normal limits for patient age. CONCLUSION: 1. Moderate to large amount of ascitic fluid which is increased from the prior study. 2. TIPS shunt catheter again noted in the liver. The liver is stable in appearance. 3. Umbilical hernia containing ascitic fluid. 4. The uterus remains diffusely inhomogeneous. Cleve Villegas MD on April 15, 2017 at 20:59 Board Certified Radiologist. This report was verified electronically.
[2017-04-15 21:30] VITALS: BP 139/78; PULSE 85; RESP 19; O2SAT 99
== END 2017-04-15 21:55 | disposition home or self-care (01) ==
LOC: NEPC 17:10
DX: K70.31 Alcoholic cirrhosis of liver with ascites (principal); K75.9 Inflammatory liver disease, unspecified; K42.9 Umbilical hernia without obstruction or gangrene; Z79.899 Other long term (current) drug therapy
CPT/HCPCS: 74000; 74177; 80053; 83690; 85025; 85610; 85730; 96374; 96375; 99285; J0780; J1200; J2270; J2405; Q9967

== ENCOUNTER 2017-04-17 07:47 | Day surgery (SDC) | payer MEDICAID ==
[~2017-04-17 07:47] MED LIST changes: +SPIR100T PO
[2017-04-17] MEDS ORDERED: ALBUMIN HUMAN 25% 50 GM IV ONE (10:15)
[2017-04-17 10:24] VITALS: BP 113/62; PULSE 91; RESP 20; TEMP 98.4; O2SAT 99
[2017-04-17 10:45] VITALS: BP 113/62; PULSE 91; RESP 20; O2SAT 99
[2017-04-17] MEDS ORDERED: ALBUMIN HUMAN 25% 25 GM/100 ML BAGP IV ONE (10:50)
--- NOTE | 2017-04-17 11:03 | RADRPT ---
EXAM DATE/TIME: 04/05/2017 10:23 [facility] COMPARISON: US GUIDED ABD PARACENTESIS, March 22, 2017, 10:19. INDICATIONS : Ascites. MEDICAL HISTORY : Cirrhosis. Anemia. Hepatitis. ESBL + E coli. SURGICAL HISTORY : Cholecystectomy Appendectomy. section. Paracentesis. Tubal ligation. TIPS. ENCOUNTER: Sequela ACUITY: 2 weeks PAIN SCORE: 2/10 LOCATION: Right lower quadrant FLUID: Total volume of 7,300 cc of clear, yellow fluid was removed. Fluid was discarded. Paracentesis was therapeutic only. Post procedure scanning reveals no hematoma or other complication. TECHNIQUE: 1. Ultrasound guidance for abdominal paracentesis. 2. Paracentesis. The risks, benefits, and alternatives to ultrasound guided paracentesis were explained to the patient in detail including the risk of bleeding and infection. Written and verbal informed consent was obt ained. With the patient on the ultrasound table, ultrasound imaging was used to select the most appropriate approach for paracentesis. Overlying skin was prepped and draped in the usual sterile fashion and wi th a local anesthetic, a dermatotomy was made with an 11 blade scalpel. A 6 Faro[place] Hxf-M-udiazrsd ca theter was introduced into the peritoneal cavity and fluid was collected. The patient tolerated the procedure well and left the ultrasound suite in stable condition. CONCLUSION: Uncomplicated ultrasound guided paracentesis. Yannick Hamm MD on April 17, 2017 at 11:01 Board Certified Radiologist. This report was verified electronically.
[2017-04-17 11:20] VITALS: BP 101/58; PULSE 88; RESP 20; O2SAT 100
[2017-04-17 11:50] VITALS: BP 94/57; PULSE 88; RESP 20; O2SAT 100
== END 2017-04-17 11:50 | disposition home or self-care (01) ==
LOC: HRAD 07:47
PROVIDERS: ATTEND Nurse Practitioner Family
DX: R18.8 Other ascites (principal)
CPT/HCPCS: 49083; 96365; C1729; P9047

== ENCOUNTER 2017-05-03 11:37 | Emergency (ER) | payer MEDICAID ==
[~2017-05-03] VITALS: Ht 154.9 cm; Wt 76.0 kg
[2017-05-03 12:05] VITALS: BP 138/68; PULSE 99; RESP 14; TEMP 98.6; O2SAT 97
[2017-05-03] MEDS ORDERED: ONDANSETRON HCL 4 MG/2 ML VIAL IV PUSH ONE (12:15)
[2017-05-03] MEDS ORDERED: MORPHINE SULFATE 8 MG/ML INJ IV PUSH ONE ×2 (12:15→14:30)
--- NOTE | 2017-05-03 12:32 | PD ---
HPI Chief Complaint: Abdominal Pain Time Seen by Provider: 12:26 Travel History International Travel<30 days: No Contact w/Intl Traveler<30days: No Traveled to known affect area: No History of Present Illness HPI 46-year-old female that presents to the ED for evaluation of epistaxis that has resolved as well as left upper quadrant abdominal pain with nausea and vomiting. Patient has a chronic history of cirrhosis and gets paracentesis every 2 weeks. Per patient she is due for her paracentesis on Saturday. Per patient about 5 days ago she had a fall and landed on her left upper quadrant as well as left rib cage. Per patient she's been having pain in that area since. Per patient the pain is 6 out of 10. Per patient she's also had some nausea and vomited and she cannot keep much down for the past 3 days. Per patient she had an episode of epistaxis last about 10 minutes but resolved on its own before they ambulance arrived. Patient comes here to get evaluated for the pain as well as the epistaxis. She takes no blood thinners. She follows with Dr. salguero. She is Sen[place]alese speaker and she was offered translating services but she states that she feels comfortable with my Sen[place]e as well as her son translating for her so she declined translating services. She states that she has had no blood in her emesis. Per patient the pain does not radiate. States mainly on the same area where she landed. She no fevers chills or sweats. No cough. No new foods. No recent travel. PFSH Past Medical History Hx Anticoagulant Therapy: No Arthritis: No Heart Rhythm Problems: No Cancer: No Cardiovascular Problems: No High Cholesterol: No Chemotherapy: No Chest Pain: No Congestive Heart Failure: No Cirrhosis: Yes Cerebrovascular Accident: No Diabetes: No Diminished Hearing: No Endocrine: No Gastrointestinal Disorders: Yes Genitourinary: No Hepatitis: Yes Immune Disorder: No Musculoskeletal: No Neurologic: No Psychiatric: No Reproductive: No Respiratory: Yes Immunizations Current: Yes Migraines: No Seizures: No Menopausal: No : 2 Para: 2 Tubal Ligation: Yes (7 years ago had a reversal) Past Surgical History Abdominal Surgery: Yes ( LAP FRANCO IN 2014) Appendectomy: Yes Cardiac Surgery: No Section: Yes Cholecystectomy: Yes Ear Surgery: No Endocrine Surgery: No Eye Surgery: No Genitourinary Surgery: No Gynecologic Surgery: Yes (TWO C SECTIONS) Neurologic Surgery: No Oral Surgery: No Thoracic Surgery: No Other Surgery: Yes (TIPS) Social History Alcohol Use: No Tobacco Use: No Substance Use: No Allergies-Medications (Allergen,Severity, Reaction): Coded Allergies: Mushroom (Verified Allergy, Mild, swollen, 05/03/17) *MDRO Multi-Drug Resistant Organism (Verified Adverse Reaction, Unknown, ) 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 Reported Meds & Prescriptions Reported Meds & Active Scripts Active Tramadol (Tramadol HCl) 50 Mg Tab 50 Mg PO Q6H PRN Zofran (Ondansetron HCl) 4 Mg Tab 4 Mg PO Q6HR PRN Protonix (Pantoprazole Sodium) 40 Mg Tab 40 Mg PO DAILY Reported Spironolactone 100 Mg Tab 100 Mg PO BIDPC Lasix (Furosemide) 40 Mg Tab 120 Mg PO DAILY Review of Systems Except as stated in HPI: all other systems reviewed are Neg Physical Exam Narrative GENERAL: SKIN: Warm and dry. HEAD: Atraumatic. Normocephalic. EYES: Pupils equal and round 4 mm reactive to light and accommodation. No scleral icterus. No injection or drainage. ENT: No nasal bleeding or discharge. Mucous membranes pink and moist. Tongue is midline. No uvula deviation. Nares are patent bilaterally with no sign of bleeding. NECK: Trachea midline. No JVD. CARDIOVASCULAR: Regular rate and rhythm. No murmurs, S3, S4. RESPIRATORY: No accessory muscle use. Clear to auscultation. Breath sounds equal bilaterally. GASTROINTESTINAL: Abdomen soft, tender to palpation on the left upper quadrant, somewhat distended. Hepatic and splenic margins not palpable. MUSCULOSKELETAL: Extremities without clubbing, cyanosis, or edema. No obvious deformities. Full range of motion of the upper and lower extremities bilaterally. 2+ pulses bilaterally. NEUROLOGICAL: Awake and alert. No obvious cranial nerve deficits. Motor grossly within normal limits. Five out of 5 muscle strength in the arms and legs. Normal speech. PSYCHIATRIC: Appropriate mood and affect; insight and judgment normal. Data Data Last Documented VS Vital Signs Date Time Temp Pulse Resp B/P Pulse Ox O2 Delivery O2 Flow Rate FiO2 05/03/17 13:53 75 14 125/67 100 Room Air 05/03/17 12:05 98.6 Orders Complete Blood Count With Diff (05/03/17 12:10) Comprehensive Metabolic Panel (05/03/17 12:10) Prothrombin Time / Inr (Pt) (05/03/17 12:10) Act Partial Throm Time (Ptt) (05/03/17 12:10) Lipase (05/03/17 12:10) Urinalysis - C+S If Indicated (05/03/17 12:10) Magnesium (Mg) (05/03/17 12:10) Chest, Single Ap (05/03/17 12:10) Ct Abd/Pel W Iv Contrast(Rout) (05/03/17 12:10) Iv Access Insert/Monitor (05/03/17 12:10) Ecg Monitoring (05/03/17 12:10) Oximetry (05/03/17 12:10) Morphine Inj (Morphine Inj) (05/03/17 12:15) Ondansetron Inj (Zofran Inj) (05/03/17 12:15) Morphine Inj (Morphine Inj) (05/03/17 14:30) Iohexol 350 Inj (Omnipaque 350 Inj) (05/03/17 15:16) Labs Laboratory Tests Test 05/03/17 05/03/17 12:10 13:05 White Blood Count 5.0 TH/MM3 Red Blood Count 3.91 MIL/MM3 Hemoglobin 10.7 GM/DL Hematocrit 33.4 % Mean Corpuscular Volume 85.4 FL Mean Corpuscular Hemoglobin 27.4 PG Mean Corpuscular Hemoglobin 32.1 % Concent Red Cell Distribution Width 14.4 % Platelet Count 162 TH/MM3 Mean Platelet Volume 8.0 FL Neutrophils (%) (Auto) 55.0 % Lymphocytes (%) (Auto) 31.4 % Monocytes (%) (Auto) 8.9 % Eosinophils (%) (Auto) 2.3 % Basophils (%) (Auto) 2.4 % Neutrophils # (Auto) 2.8 TH/MM3 Lymphocytes # (Auto) 1.6 TH/MM3 Monocytes # (Auto) 0.4 TH/MM3 Eosinophils # (Auto) 0.1 TH/MM3 Basophils # (Auto) 0.1 TH/MM3 CBC Comment DIFF FINAL Differential Comment Prothrombin Time 11.5 SEC Prothromb Time International 1.0 RATIO Ratio Activated Partial 26.0 SEC Thromboplast Time Sodium Level 139 MEQ/L Potassium Level 4.3 MEQ/L Chloride Level 108 MEQ/L Carbon Dioxide Level 22.9 MEQ/L Anion Gap 8 MEQ/L Blood Urea Nitrogen 13 MG/DL Creatinine 0.98 MG/DL Estimat Glomerular Filtration 61 ML/MIN Rate Random Glucose 123 MG/DL Calcium Level 8.2 MG/DL Magnesium Level 1.6 MG/DL Total Bilirubin 0.9 MG/DL Aspartate Amino Transf 42 U/L (AST/SGOT) Alanine Aminotransferase 18 U/L (ALT/SGPT) Alkaline Phosphatase 84 U/L Total Protein 5.9 GM/DL Albumin 2.5 GM/DL Lipase 188 U/L Urine Color LIGHT-YELLOW Urine Turbidity CLEAR Urine pH 6.0 Urine Specific [place] 1.008 Urine Protein NEG mg/dL Urine Glucose (UA) NEG mg/dL Urine Ketones NEG mg/dL Urine Occult Blood NEG Urine Nitrite NEG Urine Bilirubin NEG Urine Urobilinogen LESS THAN 2.0 MG/DL Urine Leukocyte Esterase NEG Urine RBC 1 /hpf Urine WBC 1 /hpf Urine Squamous Epithelial 3 /hpf Cells Urine Bacteria OCC /hpf Urine Mucus FEW /lpf Microscopic Urinalysis Comment CULT NOT INDICATED MDM Medical Decision Making Medical Screen Exam Complete: Yes Emergency Medical Condition: Yes Medical Record Reviewed: Yes Interpretation(s) CBC & BMP Diagram 05/03/17 12:10 LFTS and ammonia WNL UA negative coags WNL Last Impressions Chest X-Ray 05/03/17 1210 Signed Impressions: Service Date/Time: Wednesday, May 03, 2017 12:16 - CONCLUSION: No acute cardiopulmonary disease. Arron Del Toro MD Abdomen/Pelvis CT 05/03/17 1210 Signed Impressions: Service Date/Time: Wednesday, May 03, 2017 15:09 - CONCLUSION: No appreciable change. Arron Del Toro MD Differential Diagnosis Acute abdominal pain versus contusion versus rib pain versus ascites versus intractable nausea versus vomiting versus nosebleed versus resolved nosebleed Narrative Course 46-year-old female that presents to the ED for evaluation of epistaxis as well as abdominal pain. Patient was properly examined and was found to have signs and symptoms consistent with appears to be resolved epistaxis. No sign of active bleeding. No sign of posterior bleed. Patient apparently sustained a fall 5 days ago and having pain on her left upper quadrant of her abdomen as well as her rib cage. Patient takes no blood thinners. She also has been having nausea and vomited. At this time I recommend labs and imaging. Patient is in agreement with this plan. Patient was given IV pain medications as well as antiemetics. Labs and imaging showed no sign of acute disease. Patient was reassured. Patient does feel somewhat improved. At this time I believe that most of the symptoms is secondary to contusion as well as epistaxis. His has been resolved. She has had no bleeding since. At this time I recommend outpatient trial of Zofran and tramadol. Patient was told that she needs to get her paracentesis next week. Follow up next week for removal of the ascites. See ED worsening symptoms. Diagnosis Primary Impression: Abdominal wall contusion Additional Impressions: Nausea & vomiting Qualified Code: R11.2 - Non-intractable vomiting with nausea, unspecified vomiting type Epistaxis, recurrent Patient Instructions: General Instructions, Narcotic given in the ED Additional Instructions: Take medications as prescribed. Follow-up with PCP and get a paracentesis done next week. See ED for any worsening symptoms. Do not drink or drive while taking pain medication. Apply ice or heat as needed for pain Med/Other Pt SpecificInfo: Prescription(s) given Scripts Tramadol 50 Mg Tab50 Mg PO Q6H PRN (PAIN) #20 TAB Ref 0 Prov:Christiana Giles MD 05/03/17 Ondansetron (Zofran)4 Mg Tab4 Mg PO Q6HR PRN (NAUSEA OR VOMITING) #20 TAB Prov:Christiana Giles MD 05/03/17 Disposition: 01 DISCHARGE HOME Condition: Stable Joseph Dietz May 03, 2017 12:32
[2017-05-03 12:40] LABS: AUTOMATED NEUTROPHIL # 2.8 TH/MM3 (1.8-7.7); BASOPHIL # 0.1 TH/MM3 (0-0.2); BASOPHIL % 2.4 % (0.0-2.0); EOSINOPHIL # 0.1 TH/MM3 (0-0.4); EOSINOPHIL % 2.3 % (0.0-4.0); HEMATOCRIT 33.4 % (35.0-46.0); HEMO FLAGS DIFF FINAL; LYMPH % 31.4 % (9.0-44.0); LYMPHOCYTE # 1.6 TH/MM3 (1.0-4.8); MEAN CELL VOLUME 85.4 FL (80.0-100.0); MEAN CORPUSCULAR HEMOGLOBIN 27.4 PG (27.0-34.0); MEAN CORPUSCULAR HGB CONC 32.1 % (32.0-36.0); MONO % 8.9 % (0.0-8.0); PLATELET COUNT 162 TH/MM3 (150-450); RED BLOOD COUNT 3.91 MIL/MM3 (4.00-5.30); RED CELL DISTRIBUTION WIDTH 14.4 % (11.6-17.2)
[2017-05-03 12:45] LABS: PROTHROMBIN TIME - PATIENT 11.5 SEC (9.8-11.6)
--- NOTE | 2017-05-03 12:51 | RADRPT ---
EXAM DATE/TIME: 05/03/2017 12:16 [facility] COMPARISON: CHEST SINGLE AP, June 21, 2016, 15:50. INDICATIONS : Chest pain MEDICAL HISTORY : Unknown SURGICAL HISTORY : Cholecystectomy. section. ENCOUNTER: Initial ACUITY: 1 day PAIN SCORE: Non-responsive. LOCATION: Bilateral chest FINDINGS: The lungs are clear without infiltrate, nodule, or mass. There is no appreciable pleural effusion fo r technique. Heart and mediastinum are unremarkable. CONCLUSION: No acute cardiopulmonary disease. Arron Del Toro MD on May 03, 2017 at 12:46 Board Certified Radiologist. This report was verified electronically.
[2017-05-03 12:54] LABS: ALKALINE PHOSPHATASE 84 U/L (45-117); TOTAL BILIRUBIN ADULT 0.9 MG/DL (0.2-1.0)
[2017-05-03 13:13] LABS: ALT (GPT) 18 U/L (10-53); ANION GAP 8 MEQ/L (5-15); AST (GOT) 42 U/L (15-37); BICARBONATE 22.9 MEQ/L (21.0-32.0); BLOOD UREA NITROGEN 13 MG/DL (7-18); CHLORIDE 108 MEQ/L (98-107); GLOMERULAR FILTRATION RATE 61 ML/MIN (>89); MAGNESIUM 1.6 MG/DL (1.5-2.5); SODIUM (NA) 139 MEQ/L (136-145)
[2017-05-03 13:14] LABS: POTASSIUM 4.3 MEQ/L (3.5-5.1)
[2017-05-03 13:34] LABS: BACTERIA, URINE OCC /hpf; BLOOD, URINE NEG (NEG); COMMENT (UR) CULT NOT INDICATED; CULTURE IF INDICATED CULT NOT INDICATED; GLUCOSE,URINE NEG (NEG); KETONE, URINE NEG (NEG); MUCUS URINE FEW /lpf (OCC); NITRITE,URINE NEG (NEG); SQUAMOUS EPITHELIAL CELL URINE 3 /hpf (0-5); URINE COLOR LIGHT-YELLOW (YELLW/STRAW)
[2017-05-03 13:52] VITALS: O2SAT 100
[2017-05-03 13:53] VITALS: BP 125/67; PULSE 75; RESP 14; O2SAT 100
[2017-05-03] MEDS ORDERED: IOHEXOL 350 MG/ML 10 ML VIAL (for RAD DIAG) IV ONE (15:16)
--- NOTE | 2017-05-03 15:43 | RADRPT ---
EXAM DATE/TIME: 05/03/2017 15:09 [facility] COMPARISON: CT ABDOMEN & PELVIS W CONTRAST, April 15, 2017, 20:51. INDICATIONS : Left lower quadrant pain. IV CONTRAST: 92 cc Omnipaque 350 (iohexol) IV ORAL CONTRAST: No oral contrast ingested. RADIATION DOSE: 12.39 CTDIvol (mGy) MEDICAL HISTORY : Cirrhosis. Hepatitis C. SURGICAL HISTORY : Appendectomy. Cholecystectomy.Hysterectomy. ENCOUNTER: Initial ACUITY: 4 - 6 days PAIN SCALE: 6/10 LOCATION: Left lower quadrant TECHNIQUE: Volumetric scanning of the abdomen and pelvis was performed. Using automated exposure control and ad justment of the mA and/or kV according to patient size, radiation dose was kept as low as reasonably achievable to obtain optimal diagnostic quality images. DICOM format image data is available electro nically for review and comparison. FINDINGS: CT Abdomen: Spleen measures 11.3 cm in size and the liver appears cirrhotic with TIPSS in place. Ther e is extensive ascites throughout the abdomen and pelvis no change with protrusion of ascitic fluid i nto the anterior abdominal wall measures 6.2 cm in size. The pancreas, kidneys, adrenals are unremark able. There is no evidence for any appreciable pathological adenopathy, or bowel obstruction. There is old fracture of right L1 transverse process. There is passive congestion of the mesentery. CT pelvis: Multiple uterine fibroids are present. CONCLUSION: No appreciable change. Arron Del Toro MD on May 03, 2017 at 15:36 Board Certified Radiologist. This report was verified electronically.
[2017-05-03] MEDS ORDERED: ZOFR4TAB PO (15:49)
[2017-05-03] MEDS ORDERED: TRAM50TA PO (15:49)
== END 2017-05-03 14:50 | disposition home or self-care (01) ==
LOC: NEPC 11:37
DX: S30.1XXA Contusion of abdominal wall, initial encounter (principal); R04.0 Epistaxis; R11.2 Nausea with vomiting, unspecified; W19.XXXA Unspecified fall, initial encounter
CPT/HCPCS: 71010; 74177; 80053; 81001; 83690; 83735; 85025; 85610; 85730; 96374; 96375; 96376; 99285; J2270; J2405; Q9967

== ENCOUNTER 2017-05-08 07:39 | Day surgery (SDC) | payer MEDICAID ==
[2017-05-08 07:26] LABS: INTERNATIONAL NORMALIZED RATIO 1.1 RATIO
[~2017-05-08 07:39] MED LIST changes: +TRAM50TA PO; +ZOFR4TAB PO
[2017-05-08 09:02] VITALS: BP 111/65; PULSE 84; RESP 14; TEMP 98; O2SAT 100
[2017-05-08 10:45] VITALS: BP 133/65; PULSE 99; RESP 22; TEMP 99.1; O2SAT 99
[2017-05-08] MEDS ORDERED: ALBUMIN HUMAN 25% 25GM-W/12.5GM FOR 37.5GM IV ONE (10:45)
[2017-05-08 11:00] VITALS: BP 113/63; PULSE 98; RESP 22; O2SAT 99
[2017-05-08] MEDS ORDERED: ALBUMIN HUMAN 25% 12.5GM-W/25GM FOR 37.5GM IV ONE (11:30)
[2017-05-08] MEDS ORDERED: MORPHINE SULFATE 4 MG/ML INJ IV ONE (11:45)
[2017-05-08] MEDS ORDERED: LIDOCAINE HCL 1% PF 30 ML VIAL ONE (15:04)
--- NOTE | 2017-05-09 16:01 | RADRPT ---
EXAM DATE/TIME: 05/08/2017 09:07 [facility] COMPARISON: No previous studies available for comparison. INDICATIONS : Ascites. MEDICAL HISTORY : Cirrhosis. Hepatitis. Alcohol abuse. Respiratory disorders. Gallbladder SURGICAL HISTORY : Appendectomy. Cholecystectomy. section. Tips procedure. Tubal ENCOUNTER: Subsequent ACUITY: 1 month PAIN SCORE: 7/10 LOCATION: Right lower quadrant FLUID: Total volume of 6000 cc of maya fluid was removed. Fluid was discarded. Paracentesis was therapeutic only. Post procedure scanning reveals no hematoma or other complication. TECHNIQUE: 1. Ultrasound guidance for abdominal paracentesis. 2. Paracentesis. The risks, benefits, and alternatives to ultrasound guided paracentesis were explained to the patient in detail including the risk of bleeding and infection. Written and verbal informed consent was obt ained. With the patient on the ultrasound table, ultrasound imaging was used to select the most appropriate approach for paracentesis. Overlying skin was prepped and draped in the usual sterile fashion and wi th a local anesthetic, a dermatotomy was made with an 11 blade scalpel. A 6 Cypriot Tej-U-selhtnmr ca theter was introduced into the peritoneal cavity and fluid was collected. The patient tolerated the procedure well and left the ultrasound suite in stable condition. CONCLUSION: Uncomplicated ultrasound guided paracentesis. Samuel Delcid MD on May 09, 2017 at 15:59 Board Certified Radiologist. This report was verified electronically.
== END 2017-05-08 12:40 | disposition home or self-care (01) ==
LOC: HRAD 07:39 → HRIP 07:39 → HRAD 12:40
PROVIDERS: ATTEND Family Medicine
DX: R18.8 Other ascites (principal); K74.60 Unspecified cirrhosis of liver; K75.9 Inflammatory liver disease, unspecified; F10.10 Alcohol abuse, uncomplicated
CPT/HCPCS: 36415; 49083; 85610; 96365; C1729; J2270; P9047

== ENCOUNTER 2017-05-21 08:05 | Day surgery (SDC) | payer MEDICAID ==
[2017-05-21 08:24] VITALS: BP 113/76; PULSE 89; RESP 14; TEMP 98; O2SAT 100
[2017-05-21] MEDS ORDERED: LIDOCAINE HCL 1% PF 30 ML VIAL ONE (09:37)
[2017-05-21] MEDS ORDERED: ALBUMIN HUMAN 25% 25 GM/100 ML BAGP IV ONE (09:45)
[2017-05-21 10:20] VITALS: BP 113/65; PULSE 88; RESP 18; TEMP 98.4; O2SAT 99
[2017-05-21 10:36] VITALS: BP 111/63; PULSE 88; RESP 18; O2SAT 99
[2017-05-21 10:49] VITALS: BP 114/68; PULSE 85; RESP 16; O2SAT 99
--- NOTE | 2017-05-21 12:01 | RADRPT ---
EXAM DATE/TIME: 05/21/2017 08:13 [facility] COMPARISON: CT ABDOMEN & PELVIS W CONTRAST, May 03, 2017, 15:09. US GUIDED ABD PARACENTESIS, May 08, 2017, 9:0 7. INDICATIONS : Ascites. Prophylactic antibiotics were administered with appropriate pre-procedure timing. MEDICAL HISTORY : Cirrhosis. Hepatitis. Alcohol abuse. Respiratory disorders. Gallbladder SURGICAL HISTORY : ENCOUNTER: Initial ACUITY: > 1 yr PAIN SCORE: 7/10 LOCATION: Right lower quadrant FLUID: Total volume of 8300 cc of clear, yellow fluid was removed. Fluid was discarded. Paracentesis was therapeutic only. Post procedure scanning reveals no hematoma or other complication. TECHNIQUE: 1. Ultrasound guidance for abdominal paracentesis. 2. Paracentesis. The risks, benefits, and alternatives to ultrasound guided paracentesis were explained to the patient in detail including the risk of bleeding and infection. Written and verbal informed consent was obt ained. With the patient on the ultrasound table, ultrasound imaging was used to select the most appropriate approach for paracentesis. Overlying skin was prepped and draped in the usual sterile fashion and wi th a local anesthetic, a dermatotomy was made with an 11 blade scalpel. A 6 Hungarian Fuu-V-psjclhvr ca theter was introduced into the peritoneal cavity and fluid was collected. The patient tolerated the procedure well and left the ultrasound suite in stable condition. CONCLUSION: Uncomplicated ultrasound guided paracentesis. Vinny Pinto MD on May 21, 2017 at 11:59 Board Certified Radiologist. This report was verified electronically.
--- NOTE | 2017-05-21 12:34 | PD.RAD ---
Post US Procedure Prog Note Pre Procedure Diagnosis: (1) Ascites Post Procedure Diagnosis: (1) Ascites Procedure Date: May 21, 2017 Supervising Radiologist: Vinny Pinto Estimated blood loss: none Anesthesia: Local Plan of Activity Patient to Unit: ROPU Patient Condition: Good See PACS Report for procedural detail/treatment Drainage Procedure Procedure 1 Imaging Guidance: Ultrasound Side: Right Procedure Type: Paracentesis Fluid Removal (CCs): 8300 Fluid Description: Clear, Yellow Plan to ROPU for albumin then discharge home. Vinny Pinto MD May 21, 2017 12:34
== END 2017-05-21 10:53 | disposition home or self-care (01) ==
LOC: HRAD 08:05 → HRIP 08:07 → HRAD 10:53
PROVIDERS: ATTEND Family Medicine
DX: R18.8 Other ascites (principal); K74.60 Unspecified cirrhosis of liver; K75.9 Inflammatory liver disease, unspecified
CPT/HCPCS: 49083; 96365; C1729; P9047

== ENCOUNTER 2017-06-10 08:09 | Day surgery (SDC) | payer MEDICAID ==
[2017-06-10 08:47] VITALS: BP 128/76; PULSE 85; RESP 14; TEMP 98.7; O2SAT 100
[2017-06-10 10:25] VITALS: BP 119/60; PULSE 86; RESP 18; TEMP 98.6; O2SAT 99
[2017-06-10 10:40] VITALS: BP 106/59; PULSE 79; RESP 18; O2SAT 97
--- NOTE | 2017-06-10 10:41 | RADRPT ---
EXAM DATE/TIME: 06/10/2017 08:35 [facility] COMPARISON: US GUIDED ABD PARACENTESIS, May 21, 2017, 8:13. CT ABDOMEN & PELVIS W CONTRAST, May 03, 2017, 15 :09. INDICATIONS : Ascites. MEDICAL HISTORY : Cirrhosis. Hepatitis. Alcohol abuse. Respiratory disorders. SURGICAL HISTORY : Cholecystectomy Appendectomy. section. Paracentesis. Tubal ligation. ENCOUNTER: Sequela ACUITY: 3 weeks PAIN SCORE: 7/10 LOCATION: Right lower quadrant FLUID: Total volume of 7350 cc of clear, yellow fluid was removed. Fluid was discarded. Paracentesis was therapeutic only. Post procedure scanning reveals no hematoma or other complication. TECHNIQUE: 1. Ultrasound guidance for abdominal paracentesis. 2. Paracentesis. The risks, benefits, and alternatives to ultrasound guided paracentesis were explained to the patient in detail including the risk of bleeding and infection. Written and verbal informed consent was obt ained. With the patient on the ultrasound table, ultrasound imaging was used to select the most appropriate approach for paracentesis. Overlying skin was prepped and draped in the usual sterile fashion and wi th a local anesthetic, a dermatotomy was made with an 11 blade scalpel. A 6 Moh[place] Cuh-V-rjozalqi ca theter was introduced into the peritoneal cavity and fluid was collected. The patient tolerated the procedure well and left the ultrasound suite in stable condition. CONCLUSION: Uncomplicated ultrasound guided paracentesis. Nik Hamm MD on June 10, 2017 at 10:36 Board Certified Radiologist. This report was verified electronically.
[2017-06-10] MEDS ORDERED: ALBUMIN HUMAN 25% 50 GM IV ONE (11:15)
[2017-06-10] MEDS ORDERED: LIDOCAINE HCL 1% PF 30 ML VIAL ONE (11:52)
== END 2017-06-10 11:41 | disposition home or self-care (01) ==
LOC: HRAD 08:09 → HRIP 08:10 → HRAD 11:41
PROVIDERS: ATTEND Family Medicine
DX: R18.8 Other ascites (principal)
CPT/HCPCS: 49083; 96365; C1729; P9047

== ENCOUNTER 2017-06-18 17:00 | Emergency (ER) | payer MEDICAID ==
[~2017-06-18] VITALS: Ht 154.9 cm; Wt 77.0 kg
[2017-06-18 17:03] VITALS: BP 152/74; PULSE 74; RESP 17; TEMP 98.6; O2SAT 98
--- NOTE | 2017-06-18 17:20 | PD ---
Physical Exam Time Seen by Provider: 17:19 Narrative 46yo F c/o GARCÍA on and off x 1 month. Current GARCÍA x 4 hours. Vomited yesterday. Subjective fever yesterday. Patient seen in triage. VS reviewed. Patient awaiting bed placement. Data Data Last Documented VS Vital Signs Date Time Temp Pulse Resp B/P (MAP) Pulse Ox O2 Delivery O2 Flow Rate FiO2 06/18/17 17:03 98.6 74 17 152/74 (100) 98 MDM Supervised Visit with SUSAN: Pat Jin Jun 18, 2017 17:20
--- NOTE | 2017-06-18 19:00 | PD ---
HPI Chief Complaint: Headache Time Seen by Provider: 18:55 Travel History International Travel<30 days: No Contact w/Intl Traveler<30days: No Traveled to known affect area: No History of Present Illness HPI 46 year-old female history of alcoholic cirrhosis, recurrent ascites, status post TIPS procedure, presents to the emergency department today for evaluation of a headache that is generalized, banding, ongoing for the last week. Patient' s son reports that the patient states that will not go away. She has been mildly nauseous. She did vomit one time yesterday. Patient typically does not get headaches. She reports no focal deficits or weakness. No other symptoms to report. PFSH Past Medical History Hx Anticoagulant Therapy: No Arthritis: No Heart Rhythm Problems: No Cancer: No Cardiovascular Problems: Yes (cardiac cath ) High Cholesterol: No Chemotherapy: No Chest Pain: No Congestive Heart Failure: No Cirrhosis: Yes Cerebrovascular Accident: No Diabetes: No Diminished Hearing: No Endocrine: No Gastrointestinal Disorders: Yes Genitourinary: No Hepatitis: Yes Immune Disorder: No Musculoskeletal: No Neurologic: No Psychiatric: No Reproductive: No Respiratory: Yes Immunizations Current: Yes Migraines: No Seizures: No Menopausal: No : 2 Para: 2 Tubal Ligation: Yes (7 years ago had a reversal) Past Surgical History Abdominal Surgery: Yes ( LAP FRANCO IN 2014) Appendectomy: Yes Cardiac Surgery: No Section: Yes Cholecystectomy: Yes Ear Surgery: No Endocrine Surgery: No Eye Surgery: No Genitourinary Surgery: No Gynecologic Surgery: Yes (TWO C SECTIONS) Neurologic Surgery: No Oral Surgery: No Thoracic Surgery: No Other Surgery: Yes (TIPS, paracentesis) Social History Alcohol Use: No Tobacco Use: No Substance Use: No Allergies-Medications (Allergen,Severity, Reaction): Coded Allergies: mushroom (Unverified Allergy, Mild, swollen, 06/04/17) *MDRO Multi-Drug Resistant Organism (Verified Adverse Reaction, Unknown, ) 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 Reported Meds & Prescriptions Reported Meds & Active Scripts Active Reported Lasix (Furosemide) 40 Mg Tab 120 Mg PO DAILY Review of Systems Except as stated in HPI: all other systems reviewed are Neg Physical Exam Narrative GENERAL: Well-nourished female patient, in no acute distress. Primarily Citizen Of [place] speaking with son at bedside. SKIN: Focused skin assessment warm/dry. HEAD: Atraumatic. Normocephalic. EYES: Pupils equal and round. No scleral icterus. No injection or drainage. ENT: No nasal bleeding or discharge. Mucous membranes pink and moist. NECK: Trachea midline. No JVD. CARDIOVASCULAR: Regular rate and rhythm. No murmur appreciated. RESPIRATORY: No accessory muscle use. Clear to auscultation. Breath sounds equal bilaterally. GASTROINTESTINAL: Abdomen is tender, soft. No significant tenderness to palpation. MUSCULOSKELETAL: No obvious deformities. No clubbing. No cyanosis. No edema. NEUROLOGICAL: Awake and alert. No obvious cranial nerve deficits. Motor grossly within normal limits. Equal strength bilateral extremity. Normal speech. Data Data Last Documented VS Vital Signs Date Time Temp Pulse Resp B/P (MAP) Pulse Ox O2 Delivery O2 Flow Rate FiO2 06/18/17 17:03 98.6 74 17 152/74 (100) 98 Orders Orders Complete Blood Count With Diff (06/18/17 19:50) Basic Metabolic Panel (Bmp) (06/18/17 19:50) Prothrombin Time / Inr (Pt) (06/18/17 19:50) Act Partial Throm Time (Ptt) (06/18/17 19:50) Ct Brain W/O Iv Contrast(Rout) (06/18/17 19:50) Ecg Monitoring (06/18/17 19:50) Iv Access Insert/Monitor (06/18/17 19:50) Oximetry (06/18/17 19:50) Sodium Chloride 0.9% Flush (Ns Flush) (06/18/17 20:00) Urinalysis - C+S If Indicated (06/18/17 19:50) Dexamethasone Inj (Decadron Inj) (06/18/17 20:15) Metoclopramide Inj (Reglan Inj) (06/18/17 20:15) Diphenhydramine Inj (Benadryl Inj) (06/18/17 20:15) MDM Medical Decision Making Medical Screen Exam Complete: Yes Emergency Medical Condition: Yes Medical Record Reviewed: Yes Differential Diagnosis Migraine headache versus electrolyte abnormality versus hypertension versus intracranial etiology Narrative Course 46 year-old female presents to the emergency department for evaluation of headache. Patient appears without distress. Her vital signs are stable. Patient has not been seen here in the past for headache. CT imaging is ordered. The access is obtained and labs are drawn. Patient is treated with Decadron, Reglan, and Benadryl. 2100 she is signed out to my attending physician Dr. Stinson will assume care of this patient at this time. Disposition will depend his judgment. Condition: Stable BetancourtKristi johnson KADEN Jun 18, 2017 19:00
[2017-06-18] MEDS ORDERED: SODIUM CHLORIDE 0.9% FLUSH 10 ML FLUSH IVF PRN (20:00)
[2017-06-18] MEDS ORDERED: diphenhydrAMINE HCL 50 MG/ML VIAL IM ONE (20:15)
[2017-06-18] MEDS ORDERED: DEXAMETHASONE SOD PHOS 4 MG/ML VIAL IV PUSH ONE (20:15)
[2017-06-18] MEDS ORDERED: METOCLOPRAMIDE HCL 10 MG/2 ML VIAL IV PUSH ONE (20:15)
[2017-06-18 20:45] LABS: AUTOMATED NEUTROPHIL # 2.8 TH/MM3 (1.8-7.7); BASOPHIL % 0.8 % (0.0-2.0); EOSINOPHIL # 0.2 TH/MM3 (0-0.4); EOSINOPHIL % 4.3 % (0.0-4.0); HEMATOCRIT 34.8 % (35.0-46.0); HEMO FLAGS DIFF FINAL; LYMPHOCYTE # 1.8 TH/MM3 (1.0-4.8); MEAN CORPUSCULAR HEMOGLOBIN 27.5 PG (27.0-34.0); MEAN CORPUSCULAR HGB CONC 32.4 % (32.0-36.0); MONO % 6.9 % (0.0-8.0); PLATELET COUNT 165 TH/MM3 (150-450); RED BLOOD COUNT 4.09 MIL/MM3 (4.00-5.30); WHITE BLOOD COUNT 5.3 TH/MM3 (4.0-11.0)
[2017-06-18 20:46] LABS: BLOOD, URINE NEG (NEG); COMMENT (UR) CULT NOT INDICATED; CULTURE IF INDICATED CULT NOT INDICATED; GLUCOSE,URINE NEG (NEG); KETONE, URINE NEG (NEG); NITRITE,URINE NEG (NEG); SQUAMOUS EPITHELIAL CELL URINE 2 /hpf (0-5); URINE COLOR YELLOW (YELLW/STRAW)
--- NOTE | 2017-06-18 20:48 | RADRPT ---
EXAM DATE/TIME: 06/18/2017 20:38 [facility] COMPARISON: No previous studies available for comparison. INDICATIONS : Headache for one month RADIATION DOSE: 31.50 CTDIvol (mGy) MEDICAL HISTORY : None SURGICAL HISTORY : None. ENCOUNTER: Initial ACUITY: 1 month PAIN SCALE: 7/10 LOCATION: cranial TECHNIQUE: Multiple contiguous axial images were obtained of the head. Using automated exposure control and adj ustment of the mA and/or kV according to patient size, radiation dose was kept as low as reasonably a chievable to obtain optimal diagnostic quality images. DICOM format image data is available electro nically for review and comparison. FINDINGS: CEREBRUM: The ventricles are normal for age. No evidence of midline shift, mass lesion, hemorrhage or acute in farction. No extra-axial fluid collections are seen. POSTERIOR FOSSA: The cerebellum and brainstem are intact. The 4th ventricle is midline. The cerebellopontine angle i s unremarkable. EXTRACRANIAL: The visualized portion of the orbits is intact. SKULL: The calvaria is intact. No evidence of skull fracture. CONCLUSION: Normal examination for a patient of this age. Brian Bridges MD on June 18, 2017 at 20:46 Board Certified Radiologist. This report was verified electronically.
[2017-06-18 21:01] LABS: POTASSIUM 4.4 MEQ/L (3.5-5.1)
[2017-06-18] MEDS ORDERED: KETOROLAC TROMETHAMINE 30 MG/ML (IVP) VIAL IV PUSH ONE (21:15)
[2017-06-18 21:35] LABS: INTERNATIONAL NORMALIZED RATIO 1.1 RATIO
[2017-06-18 22:26] VITALS: BP 115/60; PULSE 79; RESP 16; O2SAT 98
[2017-06-18] MEDS ORDERED: BUTA1CAP PO (22:36)
--- NOTE | 2017-06-18 22:36 | PD ---
Data Data Last Documented VS Vital Signs Date Time Temp Pulse Resp B/P (MAP) Pulse Ox O2 Delivery O2 Flow Rate FiO2 06/18/17 22:58 06/18/17 22:26 79 16 98 Room Air 06/18/17 17:03 98.6 Orders Orders Complete Blood Count With Diff (06/18/17 19:50) Basic Metabolic Panel (Bmp) (06/18/17 19:50) Prothrombin Time / Inr (Pt) (06/18/17 19:50) Act Partial Throm Time (Ptt) (06/18/17 19:50) Ct Brain W/O Iv Contrast(Rout) (06/18/17 19:50) Ecg Monitoring (06/18/17 19:50) Iv Access Insert/Monitor (06/18/17 19:50) Oximetry (06/18/17 19:50) Sodium Chloride 0.9% Flush (Ns Flush) (06/18/17 20:00) Urinalysis - C+S If Indicated (06/18/17 19:50) Dexamethasone Inj (Decadron Inj) (06/18/17 20:15) Metoclopramide Inj (Reglan Inj) (06/18/17 20:15) Diphenhydramine Inj (Benadryl Inj) (06/18/17 20:15) Ketorolac Inj (Toradol Inj) (06/18/17 21:15) Labs Laboratory Tests Test 06/18/17 20:14 06/18/17 20:17 06/18/17 20:47 White Blood Count 5.3 TH/MM3 Red Blood Count 4.09 MIL/MM3 Hemoglobin 11.3 GM/DL Hematocrit 34.8 % Mean Corpuscular Volume 85.0 FL Mean Corpuscular Hemoglobin 27.5 PG Mean Corpuscular Hemoglobin Concent 32.4 % Red Cell Distribution Width 15.0 % Platelet Count 165 TH/MM3 Mean Platelet Volume 7.7 FL Neutrophils (%) (Auto) 54.0 % Lymphocytes (%) (Auto) 34.0 % Monocytes (%) (Auto) 6.9 % Eosinophils (%) (Auto) 4.3 % Basophils (%) (Auto) 0.8 % Neutrophils # (Auto) 2.8 TH/MM3 Lymphocytes # (Auto) 1.8 TH/MM3 Monocytes # (Auto) 0.4 TH/MM3 Eosinophils # (Auto) 0.2 TH/MM3 Basophils # (Auto) 0.0 TH/MM3 CBC Comment DIFF FINAL Differential Comment Blood Urea Nitrogen 13 MG/DL Creatinine 0.84 MG/DL Random Glucose 98 MG/DL Calcium Level 8.3 MG/DL Sodium Level 141 MEQ/L Potassium Level 4.4 MEQ/L Chloride Level 111 MEQ/L Carbon Dioxide Level 24.0 MEQ/L Anion Gap 6 MEQ/L Estimat Glomerular Filtration Rate 72 ML/MIN Urine Color YELLOW Urine Turbidity CLEAR Urine pH 6.0 Urine Specific [place] 1.021 Urine Protein NEG mg/dL Urine Glucose (UA) NEG mg/dL Urine Ketones NEG mg/dL Urine Occult Blood NEG Urine Nitrite NEG Urine Bilirubin NEG Urine Urobilinogen 4.0 MG/DL Urine Leukocyte Esterase NEG Urine RBC 3 /hpf Urine WBC 1 /hpf Urine Squamous Epithelial Cells 2 /hpf Microscopic Urinalysis Comment CULT NOT INDICATED Prothrombin Time 12.0 SEC Prothromb Time International Ratio 1.1 RATIO Activated Partial Thromboplast Time 28.0 SEC MDM Supervised Visit with SUSAN: Yes Narrative Course Patient care assumed from Kristi ALFONSO at 2100. This is a 46-year-old female with no significant history of headaches presents emergency Department with headache as above. Patient was given doses of medications and was not feeling better, Kristi is now ordered a dose of Toradol and I will reassess the patient after the dose. On nursing reassessment the patient states she is still having some pain. On my reassessment her son translates and the patient appears very comfortable in no distress and states her pain is very mild now and she would like to go home. I reviewed the CAT scan and basic labs and I don 't think there is any significant pathology but behind her headaches. I think she is stable for discharge. Discussed need for follow-up with her primary care physician and return to ED criteria. Diagnosis Primary Impression: Headache Qualified Codes: R51 - Headache Patient Instructions: Acute Headache (DC), General Instructions Med/Other Pt SpecificInfo: Prescription(s) given Scripts Ouhovcfpgj-Ndstcfdrbqqcn-Miymhfck (Fioricet) 50-300-40 Mg Cap 1 CAP PO Q8HR Y for HEADACHE, #10 CAP 0 Refills Prov: Yannick Stinson MD 06/18/17 Disposition: 01 DISCHARGE HOME Condition: Stable Yannick Stinson MD Jun 18, 2017 22:36
== END 2017-06-18 22:59 | disposition home or self-care (01) ==
LOC: NEPD 17:00
DX: R51 Headache (principal); K70.31 Alcoholic cirrhosis of liver with ascites
CPT/HCPCS: 70450; 80048; 81001; 85025; 85610; 85730; 96372; 96374; 96375; 99284; J1100; J1200; J1885; J2765

== ENCOUNTER 2017-06-21 08:55 | Day surgery (SDC) | payer MEDICAID ==
[~2017-06-21 08:55] MED LIST changes: +BUTA1CAP PO; -PROT40TA PO; -SPIR100T PO; -TRAM50TA PO; -ZOFR4TAB PO
[2017-06-21 10:04] VITALS: BP 131/67; PULSE 81; RESP 14; TEMP 98.1; O2SAT 100
[2017-06-21 10:55] VITALS: BP 112/60; PULSE 78; RESP 18; TEMP 98.7; O2SAT 100
[2017-06-21] MEDS ORDERED: ALBUMIN HUMAN 25% 12.5GM-W/25GM FOR 37.5GM IV ONE (11:00)
[2017-06-21] MEDS ORDERED: ALBUMIN HUMAN 25% 25GM-W/12.5GM FOR 37.5GM IV ONE (11:00)
[2017-06-21 11:10] VITALS: BP 121/76; PULSE 76; RESP 18; O2SAT 100
[2017-06-21 11:25] VITALS: BP 119/68; PULSE 72; RESP 18; O2SAT 100
--- NOTE | 2017-06-21 12:09 | RADRPT ---
EXAM DATE/TIME: 06/21/2017 09:51 [facility] COMPARISON: EXTERNAL COMPARISON: US GUIDED ABD PARACENTESIS, June 10, 2017, 8:35. [facility], US ABDOMEN, COMPLETE, Nov 07 2016. [facility], CT ABDOMEN & PELVIS W CONTRAST, June 19, 2017. [facility], US ABDOME N, COMPLETE, November 04, 2015. INDICATIONS : Ascites. MEDICAL HISTORY : Cirrhosis. Hepatitis. Alcohol abuse. Respiratory disorders. SURGICAL HISTORY : Cholecystectomy section. Paracentesis. Tubal ligation. TIPS. ENCOUNTER: Sequela ACUITY: 2 weeks PAIN SCORE: 0/10 LOCATION: Right lower quadrant FLUID: Total volume of 5,000 cc of clear, yellow fluid was removed. Fluid was discarded. Paracentesis was therapeutic only. Post procedure scanning reveals no hematoma or other complication. TECHNIQUE: 1. Ultrasound guidance for abdominal paracentesis. 2. Paracentesis. The risks, benefits, and alternatives to ultrasound guided paracentesis were explained to the patient in detail including the risk of bleeding and infection. Written and verbal informed consent was obt ained. With the patient on the ultrasound table, ultrasound imaging was used to select the most appropriate approach for paracentesis. Overlying skin was prepped and draped in the usual sterile fashion and wi th a local anesthetic, a dermatotomy was made with an 11 blade scalpel. A 6 Swedish Hfi-Z-qqdebtln ca theter was introduced into the peritoneal cavity and fluid was collected. The patient tolerated the procedure well and left the ultrasound suite in stable condition. CONCLUSION: Uncomplicated ultrasound guided paracentesis. Carlo Mariscal Jr., MD on June 21, 2017 at 12:06 Board Certified Radiologist. This report was verified electronically.
== END 2017-06-21 11:30 | disposition home or self-care (01) ==
LOC: HRIP 08:55 → HRAD 08:55
PROVIDERS: ATTEND Nurse Practitioner Family
DX: K70.31 Alcoholic cirrhosis of liver with ascites (principal); F10.10 Alcohol abuse, uncomplicated; K75.9 Inflammatory liver disease, unspecified
CPT/HCPCS: 49083; 96365; C1729; P9047

== ENCOUNTER 2017-07-01 16:08 | Emergency (ER) | payer MEDICAID ==
[~2017-07-01] VITALS: Ht 157.5 cm; Wt 80.0 kg
[2017-07-01 16:11] VITALS: BP 132/70; PULSE 93; RESP 18; TEMP 97.9; O2SAT 100
--- NOTE | 2017-07-01 18:42 | PD ---
HPI Chief Complaint: GI Complaint Time Seen by Provider: 18:14 Travel History International Travel<30 days: No Contact w/Intl Traveler<30days: No Traveled to known affect area: No History of Present Illness HPI This patient came to the ER so she can get paracentesis. She has history of alcoholic cirrhosis with ascites and gets paracentesis through outpatient radiology every 2 weeks. She had it last about 10 days ago. She did not make an appointment for her to be done this week. She is not having acute abdominal pain or shortness of breath. Symptoms severity is moderate. She has had increase in her abdominal girth with some bloating. She no longer drinks alcohol. Symptoms severity is moderate. No alleviating factors. Duration one week PFSH Past Medical History Hx Anticoagulant Therapy: No Arthritis: No Heart Rhythm Problems: No Cancer: No Cardiovascular Problems: Yes (cardiac cath ) High Cholesterol: No Chemotherapy: No Chest Pain: No Congestive Heart Failure: No Cirrhosis: Yes Cerebrovascular Accident: No Diabetes: No Diminished Hearing: No Endocrine: No Gastrointestinal Disorders: Yes Genitourinary: No Hepatitis: Yes Immune Disorder: No Musculoskeletal: No Neurologic: No Psychiatric: No Reproductive: No Respiratory: Yes Immunizations Current: Yes Migraines: No Seizures: No ?: Not Menopausal: No : 2 Para: 2 Tubal Ligation: Yes (7 years ago had a reversal) Past Surgical History Abdominal Surgery: Yes ( LAP FRANCO IN 2014) Appendectomy: Yes Cardiac Surgery: No Section: Yes Cholecystectomy: Yes Ear Surgery: No Endocrine Surgery: No Eye Surgery: No Genitourinary Surgery: No Gynecologic Surgery: Yes (TWO C SECTIONS) Neurologic Surgery: No Oral Surgery: No Thoracic Surgery: No Other Surgery: Yes (TIPS, paracentesis) Social History Alcohol Use: No Tobacco Use: No Substance Use: No Allergies-Medications (Allergen,Severity, Reaction): Coded Allergies: mushroom (Unverified Allergy, Mild, swollen, 07/01/17) *MDRO Multi-Drug Resistant Organism (Verified Adverse Reaction, Unknown, ) 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 Reported Meds & Prescriptions Reported Meds & Active Scripts Active Fioricet (Aoqyhstcyi-Cdyagqeybqxbj-Fuirozvh) 50-300-40 Mg Cap 1 Cap PO Q8HR PRN Reported Lasix (Furosemide) 40 Mg Tab 120 Mg PO DAILY Review of Systems General / Constitutional: No: Fever Eyes: No: Visual changes HENT: No: Headaches Cardiovascular: No: Chest Pain or Discomfort Respiratory: No: Shortness of Breath Gastrointestinal: Positive: Abdominal Pain Genitourinary: No: Dysuria Musculoskeletal: No: Pain Skin: No Rash Neurologic: No: Weakness Psychiatric: No: Depression Endocrine: No: Polydipsia Hematologic/Lymphatic: No: Easy Bruising Physical Exam Narrative GENERAL: Well-nourished, well-developed patient in no apparent distress. SKIN: Focused skin assessment reveals no rash and nodules. Skin is Warm and dry. HEAD: Atraumatic. Normocephalic. EYES: Pupils equal and round. No scleral icterus. No injection or drainage. ENT: No nasal bleeding or discharge. Mucous membranes pink and moist. NECK: Trachea midline. No JVD. CARDIOVASCULAR: Regular rate and rhythm. No murmur appreciated. RESPIRATORY: No accessory muscle use. Clear to auscultation. Breath sounds equal bilaterally. GASTROINTESTINAL: Abdomen soft, non-tender, abdominal distention with ascites present. Hepatic and splenic margins not palpable. MUSCULOSKELETAL: No obvious deformities. No clubbing. No cyanosis. No edema. NEUROLOGICAL: Awake and alert. No obvious cranial nerve deficits. Motor grossly within normal limits. Normal speech. PSYCHIATRIC: Appropriate mood and affect; insight and judgment normal. Data Data Last Documented VS Vital Signs Date Time Temp Pulse Resp B/P (MAP) Pulse Ox O2 Delivery O2 Flow Rate FiO2 07/01/17 18:21 20 07/01/17 16:11 97.9 93 132/70 (90) 100 Orders Orders Complete Blood Count With Diff (07/01/17 18:33) Prothrombin Time / Inr (Pt) (07/01/17 18:33) Labs Laboratory Tests Test 07/01/17 18:42 White Blood Count 5.8 TH/MM3 Red Blood Count 3.65 MIL/MM3 Hemoglobin 10.3 GM/DL Hematocrit 30.9 % Mean Corpuscular Volume 84.6 FL Mean Corpuscular Hemoglobin 28.2 PG Mean Corpuscular Hemoglobin Concent 33.3 % Red Cell Distribution Width 15.3 % Platelet Count 150 TH/MM3 Mean Platelet Volume 7.6 FL Neutrophils (%) (Auto) 63.8 % Lymphocytes (%) (Auto) 25.1 % Monocytes (%) (Auto) 7.3 % Eosinophils (%) (Auto) 3.3 % Basophils (%) (Auto) 0.5 % Neutrophils # (Auto) 3.7 TH/MM3 Lymphocytes # (Auto) 1.5 TH/MM3 Monocytes # (Auto) 0.4 TH/MM3 Eosinophils # (Auto) 0.2 TH/MM3 Basophils # (Auto) 0.0 TH/MM3 CBC Comment DIFF FINAL Differential Comment Prothrombin Time 11.4 SEC Prothromb Time International Ratio 1.0 RATIO MDM Medical Decision Making Medical Screen Exam Complete: Yes Emergency Medical Condition: Yes Medical Record Reviewed: Yes Differential Diagnosis Ascites, cirrhosis, ileus Narrative Course I have reviewed the patient's electronic medical record. Frequent visitor for paracentesis Patient does not need paracentesis emergently. Ascites is not tense and she is not short of breath and her lungs are clear, no pulmonary edema. She should call the outpatient radiology unit tomorrow to set up a time to get this done as an outpatient. They asked if I could do the lab studies needed so that would not have to be done as an outpatient. CBC shows normal platelet count INR is normal at 1.0 Patient stable for outpatient paracentesis, they will call tomorrow for appointment Diagnosis Primary Impression: Ascites Qualified Codes: K70.31 - Alcoholic cirrhosis of liver with ascites Additional Impression: S/P TIPS (transjugular intrahepatic portosystemic shunt) Additional Instructions: The patient was advised to follow up with their physician and return if they worsen. Call for paracentesis appointment tomorrow morning Med/Other Pt SpecificInfo: Other Disposition: 01 DISCHARGE HOME Condition: Stable Santi Matthews MD Jul 01, 2017 18:42
[2017-07-01 19:09] LABS: AUTOMATED NEUTROPHIL # 3.7 TH/MM3 (1.8-7.7); BASOPHIL % 0.5 % (0.0-2.0); EOSINOPHIL # 0.2 TH/MM3 (0-0.4); EOSINOPHIL % 3.3 % (0.0-4.0); HEMATOCRIT 30.9 % (35.0-46.0); HEMO FLAGS DIFF FINAL; LYMPH % 25.1 % (9.0-44.0); LYMPHOCYTE # 1.5 TH/MM3 (1.0-4.8); MEAN CELL VOLUME 84.6 FL (80.0-100.0); MEAN CORPUSCULAR HEMOGLOBIN 28.2 PG (27.0-34.0); MEAN CORPUSCULAR HGB CONC 33.3 % (32.0-36.0); MONO % 7.3 % (0.0-8.0); NEUT % 63.8 % (16.0-70.0); PLATELET COUNT 150 TH/MM3 (150-450); RED BLOOD COUNT 3.65 MIL/MM3 (4.00-5.30); RED CELL DISTRIBUTION WIDTH 15.3 % (11.6-17.2); WHITE BLOOD COUNT 5.8 TH/MM3 (4.0-11.0)
[2017-07-01 19:24] LABS: PROTHROMBIN TIME - PATIENT 11.4 SEC (9.8-11.6)
== END 2017-07-01 20:27 | disposition home or self-care (01) ==
LOC: NEPD 16:08
DX: K70.31 Alcoholic cirrhosis of liver with ascites (principal); R14.0 Abdominal distension (gaseous)
CPT/HCPCS: 85025; 85610; 99283

== ENCOUNTER 2017-07-02 08:29 | Day surgery (SDC) | payer MEDICAID ==
[2017-07-02 09:49] VITALS: BP 122/60; PULSE 80; RESP 14; TEMP 97; O2SAT 100
[2017-07-02] MEDS ORDERED: ALBUMIN HUMAN 25% 25 GM/100 ML BAGP IV ONE (10:30)
[2017-07-02 11:15] VITALS: BP 108/62; PULSE 84; RESP 16; O2SAT 99
--- NOTE | 2017-07-02 11:20 | RADRPT ---
EXAM DATE/TIME: 07/02/2017 09:49 [facility] COMPARISON: US GUIDED ABD PARACENTESIS, June 21, 2017, 9:51. INDICATIONS : Ascites. MEDICAL HISTORY : Cirrhosis. Hepatitis. Alcohol abuse. Respiratory disorders. SURGICAL HISTORY : Cholecystectomy. section. Paracentesis. Tubal ligation. TIPS. ENCOUNTER: Sequela ACUITY: 2 weeks PAIN SCORE: 0/10 LOCATION: Right lower quadrant FLUID: Total volume of 9,000 cc of clear, yellow fluid was removed. Fluid was discarded. Paracentesis was therapeutic only. Post procedure scanning reveals no hematoma or other complication. TECHNIQUE: 1. Ultrasound guidance for abdominal paracentesis. 2. Paracentesis. The risks, benefits, and alternatives to ultrasound guided paracentesis were explained to the patient in detail including the risk of bleeding and infection. Written and verbal informed consent was obt ained. With the patient on the ultrasound table, ultrasound imaging was used to select the most appropriate approach for paracentesis. Overlying skin was prepped and draped in the usual sterile fashion and wi th a local anesthetic, a dermatotomy was made with an 11 blade scalpel. A 6 Guinean Oks-W-darllwtb ca theter was introduced into the peritoneal cavity and fluid was collected. The patient tolerated the procedure well and left the ultrasound suite in stable condition. CONCLUSION: Uncomplicated ultrasound guided paracentesis. Yannick Hamm MD on July 02, 2017 at 11:18 Board Certified Radiologist. This report was verified electronically.
[2017-07-02 11:30] VITALS: BP 109/60; PULSE 80; RESP 18; O2SAT 99
[2017-07-02] MEDS ORDERED: ALBUMIN HUMAN 25% 12.5GM-W/50GM FOR 62.5GM IV ONE (11:30)
[2017-07-02] MEDS ORDERED: ALBUMIN HUMAN 25% 50GM-W/12.5GM FOR 62.5GM IV ONE (11:30)
== END 2017-07-02 12:37 | disposition home or self-care (01) ==
LOC: HRAD 08:29 → HRIP 08:38 → HRAD 12:37
PROVIDERS: ATTEND Family Medicine
DX: K70.31 Alcoholic cirrhosis of liver with ascites (principal); B19.9 Unspecified viral hepatitis without hepatic coma; F10.10 Alcohol abuse, uncomplicated
CPT/HCPCS: 49083; 96365; 96366; C1729; P9047

== ENCOUNTER 2017-07-15 08:11 | Day surgery (SDC) | payer MEDICAID ==
[2017-07-15 08:33] VITALS: BP 117/74; PULSE 91; RESP 14; TEMP 97.6; O2SAT 99
[2017-07-15 10:25] VITALS: BP 129/69; PULSE 83; RESP 14; O2SAT 100
[2017-07-15] MEDS ORDERED: ALBUMIN HUMAN 25% 50GM-W/12.5GM FOR 62.5GM IV ONE (10:30)
[2017-07-15] MEDS ORDERED: ALBUMIN HUMAN 25% 12.5GM-W/50GM FOR 62.5GM IV ONE (10:30)
--- NOTE | 2017-07-15 11:03 | RADRPT ---
EXAM DATE/TIME: 07/15/2017 08:27 [facility] COMPARISON: US GUIDED ABD PARACENTESIS, July 02, 2017, 9:49. INDICATIONS : Ascites. MEDICAL HISTORY : Cirrhosis. Hepatitis. Alcohol abuse. Respiratory disorders. SURGICAL HISTORY : Cholecystectomy. section. Paracentesis. Tubal ligation. TIPS. ENCOUNTER: Sequela ACUITY: 1 day PAIN SCORE: 6/10 LOCATION: Left FLUID: Total volume of 9700 cc of clear, yellow fluid was removed. Fluid was discarded. Paracentesis was therapeutic only. TECHNIQUE: 1. Ultrasound guidance for abdominal paracentesis. 2. Paracentesis. The risks, benefits, and alternatives to ultrasound guided paracentesis were explained to the patient in detail including the risk of bleeding and infection. Written and verbal informed consent was obt ained. With the patient on the ultrasound table, ultrasound imaging was used to select the most appropriate approach for paracentesis. Overlying skin was prepped and draped in the usual sterile fashion and wi th a local anesthetic, a dermatotomy was made with an 11 blade scalpel. A 6 Moldovan Min-B-qsgvmgxd ca theter was introduced into the peritoneal cavity and fluid was collected. The patient tolerated the procedure well and left the ultrasound suite in stable condition. CONCLUSION: Uncomplicated ultrasound guided paracentesis. Nik Hamm MD on July 15, 2017 at 11:01 Board Certified Radiologist. This report was verified electronically.
[2017-07-15] MEDS ORDERED: LIDOCAINE HCL 1% 20 ML VIAL ONE (15:51)
== END 2017-07-15 11:05 | disposition home or self-care (01) ==
LOC: HRAD 08:11 → HRIP 08:13 → HRAD 11:05
PROVIDERS: ATTEND Family Medicine
DX: K70.31 Alcoholic cirrhosis of liver with ascites (principal); B19.9 Unspecified viral hepatitis without hepatic coma
CPT/HCPCS: 49083; 96365; C1729; P9047

== ENCOUNTER 2017-07-25 07:41 | Day surgery (SDC) | payer MEDICAID ==
[2017-07-25 08:04] VITALS: BP 129/60; PULSE 83; RESP 14; TEMP 98; O2SAT 100
[2017-07-25 09:10] VITALS: BP 115/68; PULSE 83; RESP 18; TEMP 98.4; O2SAT 100
[2017-07-25] MEDS ORDERED: LIDOCAINE HCL 1% 20 ML VIAL ONE (09:17)
[2017-07-25 09:30] VITALS: BP 110/57; PULSE 86; RESP 18; O2SAT 100
[2017-07-25] MEDS ORDERED: ALBUMIN HUMAN 25% 12.5GM-W/50GM FOR 62.5GM IV ONE (09:45)
[2017-07-25] MEDS ORDERED: ALBUMIN HUMAN 25% 50GM-W/12.5GM FOR 62.5GM IV ONE (09:45)
[2017-07-25 09:55] VITALS: BP 114/62; PULSE 82; RESP 16
--- NOTE | 2017-07-25 15:37 | RADRPT ---
EXAM DATE/TIME: 07/25/2017 08:01 [facility] COMPARISON: No previous studies available for comparison. INDICATIONS : Ascites. MEDICAL HISTORY : Cirrhosis. Hepatitis. Alcohol abuse. Respiratory disorders. SURGICAL HISTORY : Cholecystectomy. section. Paracentesis. Tubal ligation. TIPS. ENCOUNTER: Sequela ACUITY: 1 day PAIN SCORE: 3/10 LOCATION: Right lower quadrant FLUID: Total volume of 9600 cc of clear, yellow fluid was removed. Fluid was discarded. Paracentesis was therapeutic only. Post procedure scanning reveals no hematoma or other complication. TECHNIQUE: 1. Ultrasound guidance for abdominal paracentesis. 2. Paracentesis. The risks, benefits, and alternatives to ultrasound guided paracentesis were explained to the patient in detail including the risk of bleeding and infection. Written and verbal informed consent was obt ained. With the patient on the ultrasound table, ultrasound imaging was used to select the most appropriate approach for paracentesis. Overlying skin was prepped and draped in the usual sterile fashion and wi th a local anesthetic, a dermatotomy was made with an 11 blade scalpel. A 6 Latvian Blo-J-mhqcvrsh ca theter was introduced into the peritoneal cavity and fluid was collected. The patient tolerated the procedure well and left the ultrasound suite in stable condition. CONCLUSION: Uncomplicated ultrasound guided paracentesis. Samuel Delcid MD on July 25, 2017 at 15:35 Board Certified Radiologist. This report was verified electronically.
== END 2017-07-25 10:30 | disposition home or self-care (01) ==
LOC: HRAD 07:41 → HRIP 07:43 → HRAD 10:30
DX: K70.31 Alcoholic cirrhosis of liver with ascites (principal); F10.20 Alcohol dependence, uncomplicated; K75.9 Inflammatory liver disease, unspecified; Z90.49 Acquired absence of other specified parts of digestive tract
CPT/HCPCS: 49083; 96365; C1729; P9047

== ENCOUNTER 2017-08-09 07:34 | Day surgery (SDC) | payer MEDICAID ==
[2017-08-09 09:24] VITALS: BP 134/73; PULSE 90; RESP 14; TEMP 98.5; O2SAT 97
--- NOTE | 2017-08-09 09:24 | PD.RAD ---
Post US Procedure Prog Note Pre Procedure Diagnosis: (1) Ascites Post Procedure Diagnosis: (1) Ascites Procedure Date: Aug 09, 2017 Supervising Radiologist: Vinny Pinto Estimated blood loss: none Anesthesia: Local Plan of Activity Patient to Unit: ROPU Patient Condition: Good See PACS Report for procedural detail/treatment Drainage Procedure Procedure 1 Imaging Guidance: Ultrasound Side: Left Procedure Type: Paracentesis Fluid Removal (CCs): 9100 Fluid Description: Clear, Yellow Plan to ROPU for albumin then discharge. Vinny Pinto MD Aug 09, 2017 09:24
[2017-08-09] MEDS ORDERED: ALBUMIN 25% INJ 0 ML IV ONE (09:30)
[2017-08-09 10:10] VITALS: BP 132/72; PULSE 88; RESP 18; TEMP 98.4; O2SAT 98
--- NOTE | 2017-08-09 10:21 | RADRPT ---
EXAM DATE/TIME: 08/09/2017 08:23 [facility] COMPARISON: US GUIDED ABD PARACENTESIS, July 25, 2017, 8:01. INDICATIONS : Ascites. MEDICAL HISTORY : Cirrhosis. Hepatitis. Alcohol abuse. Respiratory disorders. SURGICAL HISTORY : Cholecystectomy. section. Paracentesis. Tubal ligation. TIPS. ENCOUNTER: Sequela ACUITY: 1 week PAIN SCORE: 9/10 LOCATION: Left lower quadrant FLUID: Total volume of 9,100 cc of clear, yellow fluid was removed. Fluid was discarded. Paracentesis was therapeutic only. Post procedure scanning reveals no hematoma or other complication. TECHNIQUE: 1. Ultrasound guidance for abdominal paracentesis. 2. Paracentesis. The risks, benefits, and alternatives to ultrasound guided paracentesis were explained to the patient in detail including the risk of bleeding and infection. Written and verbal informed consent was obt ained. With the patient on the ultrasound table, ultrasound imaging was used to select the most appropriate approach for paracentesis. Overlying skin was prepped and draped in the usual sterile fashion and wi th a local anesthetic, a dermatotomy was made with an 11 blade scalpel. A 6 Nigerien Tvh-D-quedxmtc ca theter was introduced into the peritoneal cavity and fluid was collected. The patient tolerated the procedure well and left the ultrasound suite in stable condition. CONCLUSION: Uncomplicated ultrasound guided paracentesis. Vinyn Pinto MD on August 09, 2017 at 10:19 Board Certified Radiologist. This report was verified electronically.
[2017-08-09 10:25] VITALS: BP 143/77; PULSE 92; RESP 18; O2SAT 99
== END 2017-08-09 11:05 | disposition home or self-care (01) ==
LOC: HRAD 07:34 → HRIP 07:35 → HRAD 11:05
PROVIDERS: ATTEND Radiology Diagnostic Ultrasound
DX: R18.8 Other ascites (principal)
CPT/HCPCS: 49083; 96365; P9047

== ENCOUNTER 2017-08-21 08:16 | Day surgery (SDC) | payer MEDICAID ==
[2017-08-21 08:43] VITALS: BP 116/74; PULSE 92; RESP 14; TEMP 98.7; O2SAT 96
[2017-08-21] MEDS ORDERED: ALBUMIN 25% INJ 0 ML IV ONE (09:30)
[2017-08-21 10:40] VITALS: BP 116/56; PULSE 93; RESP 20; TEMP 98.6; O2SAT 100
[2017-08-21 10:55] VITALS: BP 116/56; PULSE 85; RESP 11; O2SAT 100
[2017-08-21] MEDS ORDERED: ALBUMIN HUMAN 25% 50GM-W/12.5GM FOR 62.5GM IV ONE (11:30)
[2017-08-21] MEDS ORDERED: ALBUMIN HUMAN 25% 12.5GM-W/50GM FOR 62.5GM IV ONE (11:30)
--- NOTE | 2017-08-21 11:45 | RADRPT ---
EXAM DATE/TIME: 08/21/2017 08:44 [facility] COMPARISON: US GUIDED ABD PARACENTESIS, August 09, 2017, 8:23. INDICATIONS : Ascites. MEDICAL HISTORY : Cirrhosis. Hepatitis. Alcohol abuse. Respiratory disorders. SURGICAL HISTORY : Cholecystectomy. section. Paracentesis. Tubal ligation. TIPS. ENCOUNTER: Sequela ACUITY: 1 week PAIN SCORE: 0/10 LOCATION: Right lower quadrant FLUID: Total volume of 10,000 cc of clear, yellow fluid was removed. Fluid was discarded. Paracentesis was therapeutic only. Post procedure scanning reveals no hematoma or other complication. TECHNIQUE: 1. Ultrasound guidance for abdominal paracentesis. 2. Paracentesis. The risks, benefits, and alternatives to ultrasound guided paracentesis were explained to the patient in detail including the risk of bleeding and infection. Written and verbal informed consent was obt ained. With the patient on the ultrasound table, ultrasound imaging was used to select the most appropriate approach for paracentesis. Overlying skin was prepped and draped in the usual sterile fashion and wi th a local anesthetic, a dermatotomy was made with an 11 blade scalpel. A 6 Sierra Leonean Rdj-Z-tprucgsw ca theter was introduced into the peritoneal cavity and fluid was collected. The patient tolerated the procedure well and left the ultrasound suite in stable condition. CONCLUSION: Uncomplicated ultrasound guided paracentesis. Yannick Hamm MD on August 21, 2017 at 11:43 Board Certified Radiologist. This report was verified electronically.
== END 2017-08-21 12:25 | disposition home or self-care (01) ==
LOC: HRIP 08:16 → HRAD 08:16
DX: R18.8 Other ascites (principal); K74.60 Unspecified cirrhosis of liver; K75.9 Inflammatory liver disease, unspecified; J98.9 Respiratory disorder, unspecified
CPT/HCPCS: 49083; 96365; C1729; P9047

== ENCOUNTER 2017-09-06 08:02 | Day surgery (SDC) | payer MEDICAID ==
[2017-09-06 08:40] VITALS: BP 130/71; PULSE 82; RESP 14; TEMP 98; O2SAT 100
[2017-09-06 09:55] VITALS: BP 129/62; PULSE 89; RESP 18; RESP 20; TEMP 98.3; O2SAT 98
[2017-09-06 10:10] VITALS: BP 119/60; PULSE 83; RESP 20; TEMP 98.3; O2SAT 96
[2017-09-06] MEDS ORDERED: ALBUMIN HUMAN 25% 50 GM IV ONE (10:15)
--- NOTE | 2017-09-06 15:29 | RADRPT ---
EXAM DATE/TIME: 09/06/2017 08:31 [facility] COMPARISON: No previous studies available for comparison. INDICATIONS : Ascites. MEDICAL HISTORY : Cirrhosis. Hepatitis. Alcohol abuse. Respiratory disorders. SURGICAL HISTORY : Cholecystectomy. section. Paracentesis. Tubal ligation. TIPS. ENCOUNTER: Sequela ACUITY: 2 weeks PAIN SCORE: 3/10 LOCATION: Right lower quadrant FLUID: Total volume of 8300 cc of clear, yellow fluid was removed. Fluid was discarded. Paracentesis was therapeutic only. Post procedure scanning reveals no hematoma or other complication. TECHNIQUE: 1. Ultrasound guidance for abdominal paracentesis. 2. Paracentesis. The risks, benefits, and alternatives to ultrasound guided paracentesis were explained to the patient in detail including the risk of bleeding and infection. Written and verbal informed consent was obt ained. With the patient on the ultrasound table, ultrasound imaging was used to select the most appropriate approach for paracentesis. Overlying skin was prepped and draped in the usual sterile fashion and wi th a local anesthetic, a dermatotomy was made with an 11 blade scalpel. A 6 Romanian Zke-Y-tlqazgtf ca theter was introduced into the peritoneal cavity and fluid was collected. The patient tolerated the procedure well and left the ultrasound suite in stable condition. CONCLUSION: Uncomplicated ultrasound guided paracentesis. Samuel Delcid MD on September 06, 2017 at 15:27 Board Certified Radiologist. This report was verified electronically.
== END 2017-09-06 11:00 | disposition home or self-care (01) ==
LOC: HRAD 08:02 → HRIP 08:09 → HRAD 11:00
PROVIDERS: ATTEND Radiology Body Imaging
DX: R18.8 Other ascites (principal)
CPT/HCPCS: 49083; C1729; P9047

== ENCOUNTER 2017-09-23 07:38 | Day surgery (SDC) | payer MEDICAID ==
[2017-09-23 08:24] VITALS: BP 132/68; PULSE 83; RESP 14; TEMP 98; O2SAT 100
[2017-09-23 09:40] VITALS: BP 131/66; PULSE 83; RESP 20; TEMP 98.4; O2SAT 100
[2017-09-23 09:55] VITALS: BP 117/59; PULSE 83; RESP 18; O2SAT 100
--- NOTE | 2017-09-23 10:01 | RADRPT ---
EXAM DATE/TIME: 09/23/2017 08:18 [facility] COMPARISON: US GUIDED ABD PARACENTESIS, September 06, 2017, 8:31. INDICATIONS : Ascites. MEDICAL HISTORY : Cirrhosis. Hepatitis. Alcohol abuse. Respiratory disorders. SURGICAL HISTORY : Cholecystectomy. section. Paracentesis. Tubal ligation. TIPS. ENCOUNTER: Sequela ACUITY: 2 weeks PAIN SCORE: 0/10 LOCATION: Left lower quadrant FLUID: Total volume of 6,000 cc of clear, yellow fluid was removed. Fluid was discarded. Paracentesis was therapeutic only. Post procedure scanning reveals no hematoma or other complication. TECHNIQUE: 1. Ultrasound guidance for abdominal paracentesis. 2. Paracentesis. The risks, benefits, and alternatives to ultrasound guided paracentesis were explained to the patient in detail including the risk of bleeding and infection. Written and verbal informed consent was obt ained. With the patient on the ultrasound table, ultrasound imaging was used to select the most appropriate approach for paracentesis. Overlying skin was prepped and draped in the usual sterile fashion and wi th a local anesthetic, a dermatotomy was made with an 11 blade scalpel. A 6 Citizen Of [place] Fwq-I-gxeghkzy ca theter was introduced into the peritoneal cavity and fluid was collected. The patient tolerated the procedure well and left the ultrasound suite in stable condition. CONCLUSION: Uncomplicated ultrasound guided paracentesis. Tereso Root MD on September 23, 2017 at 9:58 Board Certified Radiologist. This report was verified electronically.
[2017-09-23] MEDS ORDERED: ALBUMIN HUMAN 25% 12.5GM-W/25GM FOR 37.5GM IV ONE ×2 (10:15→11:00)
[2017-09-23] MEDS ORDERED: ALBUMIN HUMAN 25% 25GM-W/12.5GM FOR 37.5GM IV ONE ×2 (10:15→11:00)
[2017-09-23] MEDS ORDERED: LIDOCAINE HCL 1% 20 ML VIAL ONE (11:40)
== END 2017-09-23 10:45 | disposition home or self-care (01) ==
LOC: HRAD 07:38 → HRIP 07:41 → HRAD 10:45
DX: R18.8 Other ascites (principal); K75.9 Inflammatory liver disease, unspecified; F10.10 Alcohol abuse, uncomplicated
CPT/HCPCS: 49083; 96365; C1729; P9047

== ENCOUNTER 2017-10-09 08:10 | Day surgery (SDC) | payer MEDICAID ==
[2017-10-09 09:22] VITALS: BP 121/65; PULSE 78; RESP 20; TEMP 98.2; O2SAT 100
[2017-10-09] MEDS ORDERED: LIDOCAINE HCL 1% 20 ML VIAL ONE (09:48)
[2017-10-09 09:50] VITALS: BP 117/70; PULSE 92; RESP 20; TEMP 98.3; O2SAT 99
[2017-10-09] MEDS ORDERED: ALBUMIN HUMAN 25% 12.5GM-W/25GM FOR 37.5GM IV ONE (10:15)
[2017-10-09] MEDS ORDERED: ALBUMIN HUMAN 25% 25GM-W/12.5GM FOR 37.5GM IV ONE (10:15)
[2017-10-09 10:50] VITALS: BP 109/72; PULSE 88; RESP 18; O2SAT 97
--- NOTE | 2017-10-09 11:58 | RADRPT ---
EXAM DATE/TIME: 10/09/2017 08:45 [facility] COMPARISON: US GUIDED ABD PARACENTESIS, September 23, 2017, 8:18. INDICATIONS : Ascites. MEDICAL HISTORY : Cirrhosis. Hepatitis. ETOH abuse. Respiratory disorders. Anemia. History of ESBL + E.coli in urine. SURGICAL HISTORY : Cholecystectomy section. Tubal ligation. Paracentesis. TIPS. Cardiac cath. Appendectomy. ENCOUNTER: Sequela ACUITY: 2 weeks PAIN SCORE: 6/10 LOCATION: Left lower quadrant FLUID: Total volume of 6,800 cc of clear, yellow fluid was removed. Fluid was discarded. Paracentesis was therapeutic only. Post procedure scanning reveals no hematoma or other complication. TECHNIQUE: 1. Ultrasound guidance for abdominal paracentesis. 2. Paracentesis. The risks, benefits, and alternatives to ultrasound guided paracentesis were explained to the patient in detail including the risk of bleeding and infection. Written and verbal informed consent was obt ained. With the patient on the ultrasound table, ultrasound imaging was used to select the most appropriate approach for paracentesis. Overlying skin was prepped and draped in the usual sterile fashion and wi th a local anesthetic, a dermatotomy was made with an 11 blade scalpel. A 6 Sinhala Pkg-Y-iaqvalmw ca theter was introduced into the peritoneal cavity and fluid was collected. The patient tolerated the procedure well and left the ultrasound suite in stable condition. CONCLUSION: Uncomplicated ultrasound guided paracentesis. Carlo Mariscal Jr., MD on October 09, 2017 at 11:56 Board Certified Radiologist. This report was verified electronically.
== END 2017-10-09 11:00 | disposition home or self-care (01) ==
LOC: HRAD 08:10 → HRIP 08:11 → HRAD 11:00
DX: R18.8 Other ascites (principal); K74.60 Unspecified cirrhosis of liver; K75.9 Inflammatory liver disease, unspecified; F10.10 Alcohol abuse, uncomplicated
CPT/HCPCS: 49083; 96365; C1729; P9047

== ENCOUNTER 2017-10-23 09:46 | Day surgery (SDC) | payer MEDICAID ==
[2017-10-23] MEDS ORDERED: ALBUMIN 25% INJ 0 ML IV ONE (12:00)
[2017-10-23 12:25] VITALS: BP 122/48; PULSE 89; RESP 17; TEMP 98.5; O2SAT 98
[2017-10-23] MEDS ORDERED: ALBUMIN HUMAN 25% 50 GM IV ONE (12:30)
[2017-10-23 12:40] VITALS: BP 117/50; PULSE 88; RESP 16; O2SAT 97
--- NOTE | 2017-10-23 13:14 | RADRPT ---
EXAM DATE/TIME: 10/23/2017 10:04 [facility] COMPARISON: US GUIDED ABD PARACENTESIS, October 09, 2017, 8:45. INDICATIONS : Ascites. MEDICAL HISTORY : Cirrhosis. Hepatitis. ETOH abuse. Respiratory disorders. Anemia. Ascites. History of ESBL + E.coli i n urine. SURGICAL HISTORY : Cholecystectomy section. Tubal ligation. Paracentesis. TIPS. Cardiac cath. Appendectomy. ENCOUNTER: Sequela ACUITY: 2 weeks PAIN SCORE: 0/10 LOCATION: Right lower quadrant FLUID: Total volume of 7,500 cc of clear, yellow fluid was removed. Fluid was discarded. Paracentesis was therapeutic only. Post procedure scanning reveals no hematoma or other complication. TECHNIQUE: 1. Ultrasound guidance for abdominal paracentesis. 2. Paracentesis. The risks, benefits, and alternatives to ultrasound guided paracentesis were explained to the patient in detail including the risk of bleeding and infection. Written and verbal informed consent was obt ained. With the patient on the ultrasound table, ultrasound imaging was used to select the most appropriate approach for paracentesis. Overlying skin was prepped and draped in the usual sterile fashion and wi th a local anesthetic, a dermatotomy was made with an 11 blade scalpel. A 6 Icelandic Jfp-F-xyyesmmf ca theter was introduced into the peritoneal cavity and fluid was collected. The patient tolerated the procedure well and left the ultrasound suite in stable condition. CONCLUSION: Uncomplicated ultrasound guided paracentesis. Yannick Hamm MD on October 23, 2017 at 13:12 Board Certified Radiologist. This report was verified electronically.
== END 2017-10-23 13:00 | disposition home or self-care (01) ==
LOC: HRAD 09:46 → HRIP 09:47 → HRAD 13:00
PROVIDERS: ATTEND Radiology Body Imaging
DX: R18.8 Other ascites (principal); K74.60 Unspecified cirrhosis of liver
CPT/HCPCS: 49083; 96365; C1729; P9047

== ENCOUNTER 2017-11-06 09:34 | Day surgery (SDC) | payer MEDICAID ==
--- NOTE | 2017-11-06 10:40 | PD.RAD ---
Post US Procedure Prog Note Pre Procedure Diagnosis: (1) Ascites Post Procedure Diagnosis: (1) Ascites Procedure Date: Nov 06, 2017 Supervising Radiologist: Vinny Pinto Proceduralist/Assist: Miguelina Zeng RDMS Estimated blood loss: minimal Anesthesia: Local Plan of Activity Patient to Unit: ROPU Patient Condition: Good See PACS Report for procedural detail/treatment Drainage Procedure Procedure 1 Imaging Guidance: Ultrasound Side: Left Procedure Type: Paracentesis Fluid Removal (CCs): 7000 Fluid Description: Clear, Yellow Plan to ROPU then discharge after albumin Vinny Pinto MD Nov 06, 2017 10:40
[2017-11-06] MEDS ORDERED: ALBUMIN 25% INJ 0 ML IV ONE (11:00)
[2017-11-06 11:49] VITALS: BP 121/67; PULSE 88; RESP 18; TEMP 99.1; O2SAT 98
[2017-11-06 12:15] VITALS: BP 127/68; PULSE 88; RESP 18; O2SAT 98
[2017-11-06 12:30] VITALS: BP 104/56; PULSE 86; RESP 18; O2SAT 98
[2017-11-06] MEDS ORDERED: HYDROmorphone HCL PF 2 MG/ML VIAL ONE (12:34)
[2017-11-06] MEDS ORDERED: HYDROmorphone HCL PF 2 MG/ML VIAL IV ONE (12:45)
--- NOTE | 2017-11-06 13:16 | RADRPT ---
EXAM DATE/TIME: 11/06/2017 10:10 [facility] COMPARISON: US GUIDED ABD PARACENTESIS, October 23, 2017, 10:04. INDICATIONS : Ascites. MEDICAL HISTORY : Cirrhosis. Hepatitis. ETOH abuse. Respiratory disorders. Anemia. Ascites. History of ESBL + E.coli i n urine. SURGICAL HISTORY : Cholecystectomy section. Tubal ligation. Paracentesis. TIPS. Cardiac cath. Appendectomy. ENCOUNTER: Sequela ACUITY: 2 weeks PAIN SCORE: 5/10 LOCATION: Left lower quadrant FLUID: Total volume of 7000 cc of clear, yellow fluid was removed. Fluid was discarded. Paracentesis was therapeutic only. Post procedure scanning reveals no hematoma or other complication. TECHNIQUE: 1. Ultrasound guidance for abdominal paracentesis. 2. Paracentesis. The risks, benefits, and alternatives to ultrasound guided paracentesis were explained to the patient in detail including the risk of bleeding and infection. Written and verbal informed consent was obt ained. With the patient on the ultrasound table, ultrasound imaging was used to select the most appropriate approach for paracentesis. Overlying skin was prepped and draped in the usual sterile fashion and wi th a local anesthetic, a dermatotomy was made with an 11 blade scalpel. A 6 Khmer Qbk-Y-ruwsefgq ca theter was introduced into the peritoneal cavity and fluid was collected. The patient tolerated the procedure well and left the ultrasound suite in stable condition. CONCLUSION: Uncomplicated ultrasound guided paracentesis. Vinny Pinto MD on November 06, 2017 at 13:12 Board Certified Radiologist. This report was verified electronically.
== END 2017-11-06 12:45 | disposition home or self-care (01) ==
LOC: HRAD 09:34 → HRIP 09:35 → HRAD 12:45
DX: R18.8 Other ascites (principal)
CPT/HCPCS: 49083; 96365; C1729; J1170; P9047

== ENCOUNTER 2017-12-19 15:14 | Emergency (ER) | payer MEDICAID ==
[~2017-12-19] VITALS: Ht 154.9 cm; Wt 78.0 kg
[2017-12-19 15:22] VITALS: BP 136/64; PULSE 89; RESP 18; TEMP 98.6; O2SAT 100
[2017-12-19] MEDS ORDERED: DEXAMETHASONE SOD PHOS 4 MG/ML VIAL IM ONE (17:15)
[2017-12-19] MEDS ORDERED: ZANT300T PO (17:24)
[2017-12-19] MEDS ORDERED: PRED20 PO (17:24)
[2017-12-19] MEDS ORDERED: AMOX500C PO (17:24)
[2017-12-19] MEDS ORDERED: CETI10CA3 PO (17:24)
--- NOTE | 2017-12-19 17:24 | PD ---
HPI Chief Complaint: Allergic/Adverse Reaction Time Seen by Provider: 16:59 Travel History International Travel<30 days: No Contact w/Intl Traveler<30days: No Traveled to known affect area: No History of Present Illness HPI 47-year-old female complains sore throat, fever, itching rash. Patient states that the symptoms started several days ago. Patient is not sure of exposure. Patient denies earache cough and congestion. Patient denies any chest pain or shortness of breath. Patient states that she has sore throat with swallowing. Patient denies any nausea vomiting diarrhea. Patient denies any dysuria or frequency. Patient states that she has intermittent low-grade fever at home. Patient states that she has swollen neck glands. PFSH Past Medical History Hx Anticoagulant Therapy: No Arthritis: No Heart Rhythm Problems: No Cancer: No Cardiovascular Problems: Yes ("WEAK VALVE") High Cholesterol: No Chemotherapy: No Chest Pain: No Congestive Heart Failure: No Cirrhosis: Yes Cerebrovascular Accident: No Diabetes: No Diminished Hearing: No Endocrine: No Gastrointestinal Disorders: Yes Genitourinary: No Hepatitis: Yes Immune Disorder: No Musculoskeletal: No Neurologic: No Psychiatric: No Reproductive: No Respiratory: Yes Immunizations Current: Yes Migraines: No Seizures: No Influenza Vaccination: No ?: Unknown Menopausal: No : 2 Para: 2 Tubal Ligation: Yes (7 years ago had a reversal) Past Surgical History Abdominal Surgery: Yes ( [facility] IN 2014) Appendectomy: Yes Cardiac Surgery: No Section: Yes Cholecystectomy: Yes Ear Surgery: No Endocrine Surgery: No Eye Surgery: No Genitourinary Surgery: No Gynecologic Surgery: Yes (TWO C SECTIONS) Neurologic Surgery: No Oral Surgery: No Thoracic Surgery: No Other Surgery: Yes (TIPS, paracentesis) Social History Alcohol Use: No Tobacco Use: No Substance Use: No Allergies-Medications (Allergen,Severity, Reaction): Coded Allergies: mushroom (Unverified Allergy, Mild, swollen, 12/19/17) *MDRO Multi-Drug Resistant Organism (Verified Adverse Reaction, Unknown, ) 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 Reported Meds & Prescriptions Reported Meds & Active Scripts Active Fioricet (Pnvkvhaanl-Axnpndbwwrwco-Uzvwnbaj) 50-300-40 Mg Cap 1 Cap PO Q8HR PRN Reported Lasix (Furosemide) 40 Mg Tab 120 Mg PO DAILY Review of Systems General / Constitutional: Positive: Fever Eyes: No: Visual changes HENT: Positive: Sore Throat, No: Headaches Cardiovascular: No: Chest Pain or Discomfort Respiratory: No: Shortness of Breath Gastrointestinal: No: Abdominal Pain Genitourinary: No: Dysuria Musculoskeletal: No: Pain Skin: No Rash Neurologic: No: Weakness Psychiatric: No: Depression Endocrine: No: Polydipsia Hematologic/Lymphatic: No: Easy Bruising Physical Exam Narrative GENERAL: Well-nourished, well-developed patient. SKIN: Focused skin assessment warm/dry. Patient had patchy maculopapular rash on both upper extremity and upper chest area. HEAD: Normocephalic. EYES: No scleral icterus. No injection or drainage. Throat: Mild erythematous. NECK: Supple, trachea midline. No JVD. Patient has mild anterior cervical lymphadenopathy. No meningismus CARDIOVASCULAR: Regular rate and rhythm without murmurs, gallops, or rubs. RESPIRATORY: Breath sounds equal bilaterally. No accessory muscle use. No stridor or wheezes. GASTROINTESTINAL: Abdomen soft, non-tender, nondistended. MUSCULOSKELETAL: No cyanosis, or edema. BACK: Nontender without obvious deformity. No CVA tenderness. Data Data Last Documented VS Vital Signs Date Time Temp Pulse Resp B/P (MAP) Pulse Ox O2 Delivery O2 Flow Rate FiO2 12/19/17 15:25 18 100 Room Air 12/19/17 15:22 98.6 89 136/64 (88) Orders Orders Dexamethasone Inj (Decadron Inj) (12/19/17 17:15) [facility] Medical Decision Making Medical Screen Exam Complete: Yes Emergency Medical Condition: Yes Differential Diagnosis Differential diagnosis including pharyngitis, contact dermatitis, allergic dermatitis. Narrative Course 47-year-old female with low-grade fever, sore throat, cervical lymphadenopathy, patchy itching skin rash. Decadron 8 mg IM. Diagnosis Primary Impression: Pharyngitis Qualified Codes: J02.9 - Acute pharyngitis, unspecified Additional Impression: Allergic dermatitis Patient Instructions: General Instructions Additional Instructions: Take medication as directed. Follow-up with personal physician. Tylenol for fever. Return if worse. Med/Other Pt SpecificInfo: Prescription(s) given Scripts Amoxicillin (Amoxicillin) 500 Mg Cap 500 MG PO TID for Infection, #30 CAP 0 Refills Prov: Shine Castillo MD 12/19/17 Ranitidine (Zantac) 300 Mg Tab 300 MG PO DAILY, #10 TAB 0 Refills Prov: Shine Castillo MD 12/19/17 Cetirizine HCl (Zyrtec) 10 Mg Capsule 1 TAB PO DAILY, #10 Prov: Shine Castillo MD 12/19/17 Prednisone (Prednisone) 20 Mg Tab 20 MG PO BID, #14 TAB 0 Refills Prov: Shine Castillo MD 12/19/17 Disposition: 01 DISCHARGE HOME Condition: Stable Shine Castillo MD Dec 19, 2017 17:24
== END 2017-12-19 17:50 | disposition home or self-care (01) ==
LOC: NEPD 15:14
DX: J02.9 Acute pharyngitis, unspecified (principal); L23.9 Allergic contact dermatitis, unspecified cause
CPT/HCPCS: 96372; 99283; J1100

== ENCOUNTER 2018-02-06 07:54 | Observation (INO) | payer MEDICAID ==
[~2018-02-06 07:54] MED LIST changes: +AMOX500C PO; +CETI10CA3 PO; +PRED20 PO; +ZANT300T PO
[2018-02-06 08:02] VITALS: BP 151/70; PULSE 87; RESP 20; TEMP 98.2; O2SAT 100
[2018-02-06 08:31] VITALS: O2SAT 98
[2018-02-06] MEDS ORDERED: SPIR100T PO (08:31)
[2018-02-06 08:34] LABS: AUTOMATED NEUTROPHIL # 4.1 TH/MM3 (1.8-7.7); BASOPHIL % 0.8 % (0.0-2.0); EOSINOPHIL # 0.1 TH/MM3 (0-0.4); EOSINOPHIL % 2.3 % (0.0-4.0); HEMATOCRIT 32.7 % (35.0-46.0); HEMOGLOBIN 10.9 GM/DL (11.6-15.3); LYMPH % 23.9 % (9.0-44.0); LYMPHOCYTE # 1.5 TH/MM3 (1.0-4.8); MEAN CELL VOLUME 81.4 FL (80.0-100.0); MEAN CORPUSCULAR HEMOGLOBIN 27.2 PG (27.0-34.0); MEAN CORPUSCULAR HGB CONC 33.4 % (32.0-36.0); MEAN PLATELET VOLUME 7.7 FL (7.0-11.0); MONO % 7.5 % (0.0-8.0); MONOCYTE # 0.5 TH/MM3 (0-0.9); NEUT % 65.5 % (16.0-70.0); PLATELET COUNT 195 TH/MM3 (150-450); RED BLOOD COUNT 4.02 MIL/MM3 (4.00-5.30); RED CELL DISTRIBUTION WIDTH 17.6 % (11.6-17.2); WHITE BLOOD COUNT 6.2 TH/MM3 (4.0-11.0)
[2018-02-06 08:36] VITALS: BP 165/74; PULSE 96; RESP 17; O2SAT 100
--- NOTE | 2018-02-06 08:40 | RADRPT ---
EXAM DATE/TIME: 02/06/2018 08:25 [facility] COMPARISON: CHEST PA & LAT, April 20, 2015, 12:47. INDICATIONS : Chest pain. MEDICAL HISTORY : Cirrhosis. Hepatitis. SURGICAL HISTORY : Cholecystectomy. section. ENCOUNTER: Initial ACUITY: 3 days PAIN SCORE: 8/10 LOCATION: Left upper chest FINDINGS: PA and lateral views of the chest demonstrate the lungs to be symmetrically aerated without evidence of mass, infiltrate or effusion. The cardiomediastinal contours are unremarkable. Osseous structure s are intact. CONCLUSION: No acute disease. Samuel Delcid MD on February 06, 2018 at 8:37 Board Certified Radiologist. This report was verified electronically.
[2018-02-06 08:43] LABS: INTERNATIONAL NORMALIZED RATIO 1.2 RATIO
[2018-02-06] MEDS ORDERED: ONDANSETRON HCL 4 MG/2 ML VIAL IV PUSH ONE (08:45)
[2018-02-06] MEDS ORDERED: MORPHINE SULFATE 4 MG/ML INJ IV PUSH ONE (08:45)
[2018-02-06 08:48] LABS: BICARBONATE 24.7 MEQ/L (21.0-32.0); BLOOD UREA NITROGEN 11 MG/DL (7-18); CALCIUM 8.6 MG/DL (8.5-10.1); CHLORIDE 107 MEQ/L (98-107); CREATININE 0.75 MG/DL (0.50-1.00); GLOMERULAR FILTRATION RATE 82 ML/MIN (>89); GLUCOSE,RANDOM 101 MG/DL (74-106); SODIUM (NA) 140 MEQ/L (136-145)
--- NOTE | 2018-02-06 08:51 | PD ---
HPI Chief Complaint: GI Complaint Time Seen by Provider: 08:35 Travel History International Travel<30 days: No Contact w/Intl Traveler<30days: No Traveled to known affect area: No History of Present Illness HPI The history was obtained through interpretation with nurse Franklin and her son. Patient was offered interpretive services however she declined and wished to use her son. This is a 47-year-old female with a history of cirrhosis secondary to alcohol abuse, who presents today with complaints of left-sided chest pain and epigastric pain with nausea vomiting. Patient reports the pain as sharp and dull. She reports no radiation. She states it is in her epigastrium and her left chest. She reports it as a 4-5 on the pain scale out of 10. She reports his symptoms started last night. They comes and goes. She denies any blood in her stool or vomit. She did state that she had some blood in her nose earlier. There is no shortness of breath. There is no diaphoresis. There is no diarrhea. Patient reports that she has a valve abnormality but denies any history of AR. PFSH Past Medical History Hx Anticoagulant Therapy: No Arthritis: No Heart Rhythm Problems: No Cancer: No Cardiovascular Problems: Yes ("WEAK VALVE") High Cholesterol: No Chemotherapy: No Chest Pain: No Congestive Heart Failure: No Cirrhosis: Yes Cerebrovascular Accident: No Diabetes: No Diminished Hearing: No Endocrine: No Gastrointestinal Disorders: Yes Genitourinary: No Hepatitis: Yes Immune Disorder: No Musculoskeletal: No Neurologic: No Psychiatric: No Reproductive: No Respiratory: Yes Immunizations Current: Yes Migraines: No Seizures: No Tetanus Vaccination: Unknown Influenza Vaccination: No ?: Not Menopausal: No : 2 Para: 2 Tubal Ligation: Yes (7 years ago had a reversal) Past Surgical History Abdominal Surgery: Yes ( LAP FRANCO IN 2014) Appendectomy: Yes Cardiac Surgery: No Section: Yes Cholecystectomy: Yes Ear Surgery: No Endocrine Surgery: No Eye Surgery: No Genitourinary Surgery: No Gynecologic Surgery: Yes (TWO C SECTIONS) Neurologic Surgery: No Oral Surgery: No Thoracic Surgery: No Other Surgery: Yes (TIPS, paracentesis) Social History Alcohol Use: No Tobacco Use: No Substance Use: No Allergies-Medications (Allergen,Severity, Reaction): Coded Allergies: mushroom (Unverified Allergy, Mild, swollen, 02/06/18) *MDRO Multi-Drug Resistant Organism (Verified Adverse Reaction, Unknown, ) 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 Reported Meds & Prescriptions Reported Meds & Active Scripts Active Reported Spironolactone 100 Mg Tab 100 Mg PO DAILY Review of Systems Except as stated in HPI: all other systems reviewed are Neg General / Constitutional: No: Fever, Chills HENT: No: Headaches, Neck Pain Cardiovascular: Positive: Chest Pain or Discomfort, No: Palpitations, Irregular Rhythm Respiratory: No: Cough, Shortness of Breath Gastrointestinal: Positive: Nausea, Vomiting, Abdominal Pain (Epigastric), No: Diarrhea, Hematemesis, Hematochezia Genitourinary: No: Frequency, Dysuria, Decreased Urinary Output Musculoskeletal: No: Weakness, Edema, Pain Neurologic: No: Weakness, Dizziness, Headache Psychiatric: No: Substance Abuse (Stop drinking 3 years ago.) Physical Exam Narrative GENERAL: Well-developed well-nourished female in no acute respiratory distress. SKIN: Focused skin assessment warm/dry. HEAD: Atraumatic. Normocephalic. EYES: No scleral icterus. No injection or drainage. ENT: No nasal bleeding or discharge. Mucous membranes pink and moist. NECK: Trachea midline. No JVD. Supple. CARDIOVASCULAR: Regular rate and rhythm. 2/6 systolic murmur heard at the left sternal border. RESPIRATORY: No accessory muscle use. Clear to auscultation. Breath sounds equal bilaterally. GASTROINTESTINAL: Abdomen soft, nondistended. No fluid wave appreciated. Patient had discomfort in her epigastrium. There is no rebound or guarding noted. MUSCULOSKELETAL: No obvious deformities. No clubbing. No cyanosis. No edema. NEUROLOGICAL: Awake and alert. No obvious cranial nerve deficits. Motor grossly within normal limits. Normal speech. Data Data Last Documented VS Vital Signs Date Time Temp Pulse Resp B/P (MAP) Pulse Ox O2 Delivery O2 Flow Rate FiO2 02/06/18 08:36 96 17 165/74 (104) 100 Room Air 02/06/18 08:02 98.2 Orders Orders Electrocardiogram (02/06/18 08:03) Complete Blood Count With Diff (02/06/18 08:03) Basic Metabolic Panel (Bmp) (02/06/18 08:03) Ckmb (Isoenzyme) Profile (02/06/18 08:03) Troponin I (02/06/18 08:03) Iv Access Insert/Monitor (02/06/18 08:03) Ecg Monitoring (02/06/18 08:03) Oxygen Administration (02/06/18 08:03) Oximetry (02/06/18 08:03) Electrocardiogram (02/06/18 ) Act Partial Throm Time (Ptt) (02/06/18 08:03) Prothrombin Time / Inr (Pt) (02/06/18 08:03) Chest, Pa & Lat (02/06/18 ) Urinalysis - C+S If Indicated (02/06/18 08:03) Hepatic Functional Panel (02/06/18 08:36) Lipase (02/06/18 08:36) Morphine Inj (Morphine Inj) (02/06/18 08:45) Ondansetron Inj (Zofran Inj) (02/06/18 08:45) Labs Laboratory Tests Test 02/06/18 08:19 02/06/18 10:27 White Blood Count 6.2 TH/MM3 Red Blood Count 4.02 MIL/MM3 Hemoglobin 10.9 GM/DL Hematocrit 32.7 % Mean Corpuscular Volume 81.4 FL Mean Corpuscular Hemoglobin 27.2 PG Mean Corpuscular Hemoglobin Concent 33.4 % Red Cell Distribution Width 17.6 % Platelet Count 195 TH/MM3 Mean Platelet Volume 7.7 FL Neutrophils (%) (Auto) 65.5 % Lymphocytes (%) (Auto) 23.9 % Monocytes (%) (Auto) 7.5 % Eosinophils (%) (Auto) 2.3 % Basophils (%) (Auto) 0.8 % Neutrophils # (Auto) 4.1 TH/MM3 Lymphocytes # (Auto) 1.5 TH/MM3 Monocytes # (Auto) 0.5 TH/MM3 Eosinophils # (Auto) 0.1 TH/MM3 Basophils # (Auto) 0.0 TH/MM3 CBC Comment DIFF FINAL Differential Comment Prothrombin Time 12.0 SEC Prothromb Time International Ratio 1.2 RATIO Activated Partial Thromboplast Time 28.3 SEC Blood Urea Nitrogen 11 MG/DL Creatinine 0.75 MG/DL Random Glucose 101 MG/DL Calcium Level 8.6 MG/DL Sodium Level 140 MEQ/L Potassium Level 3.6 MEQ/L Chloride Level 107 MEQ/L Carbon Dioxide Level 24.7 MEQ/L Anion Gap 8 MEQ/L Estimat Glomerular Filtration Rate 82 ML/MIN Total Bilirubin 1.1 MG/DL Direct Bilirubin 0.3 MG/DL Indirect Bilirubin 0.8 MG/DL Aspartate Amino Transf (AST/SGOT) 18 U/L Alanine Aminotransferase (ALT/SGPT) 16 U/L Alkaline Phosphatase 89 U/L Total Creatine Kinase 59 U/L Troponin I LESS THAN 0.02 NG/ML Total Protein 6.8 GM/DL Albumin 3.2 GM/DL Lipase 147 U/L Urine Color YELLOW Urine Turbidity CLEAR Urine pH 6.5 Urine Specific [place] 1.018 Urine Protein NEG mg/dL Urine Glucose (UA) NEG mg/dL Urine Ketones TRACE mg/dL Urine Occult Blood NEG Urine Nitrite NEG Urine Bilirubin NEG Urine Urobilinogen 4.0 MG/DL Urine Leukocyte Esterase NEG Urine RBC 5 /hpf Urine WBC LESS THAN 1 /hpf Urine Squamous Epithelial Cells 5 /hpf Urine Bacteria RARE /hpf Urine Mucus FEW /lpf Microscopic Urinalysis Comment CULT NOT INDICATED MDM Medical Decision Making Medical Screen Exam Complete: Yes Emergency Medical Condition: Yes Differential Diagnosis ACS versus pancreatitis versus gastritis Narrative Course 47-year-old female with a history of cirrhosis of the liver, presents today with complaints of left-sided chest pain and epigastric pain. Patient also reports associated nausea vomiting. The patient reports the chest pain as both dull and achy. EKG shows no evidence of acute process. Cardiac enzymes 1 are within normal limits. Given the patient's nausea vomiting, I will admit the patient under observation to the hospital service for rule out protocol. There is a call out to the resident service. Diagnosis Primary Impression: Chest pain Additional Impressions: Nausea & vomiting Epigastric abdominal pain Admitting Information Admitting Physician Requests: Observation Kb García MD Feb 06, 2018 08:51
[2018-02-06 08:52] LABS: TROPONIN I LESS THAN 0.02 NG/ML (0.02-0.05)
[2018-02-06 09:15] LABS: ALBUMIN 3.2 GM/DL (3.4-5.0); DIRECT BILIRUBIN ADULT 0.3 MG/DL (0.0-0.2)
[2018-02-06 09:17] LABS: INDIRECT BILIRUBIN 0.8 MG/DL (0.0-0.8); TOTAL BILIRUBIN ADULT 1.1 MG/DL (0.2-1.0); TOTAL PROTEIN 6.8 GM/DL (6.4-8.2)
[2018-02-06 10:42] LABS: BACTERIA, URINE RARE /hpf; BILIRUBIN, URINE NEG (NEG); BLOOD, URINE NEG (NEG); GLUCOSE,URINE NEG (NEG); KETONE, URINE TRACE mg/dL (NEG); MUCUS URINE FEW /lpf (OCC); NITRITE,URINE NEG (NEG); PH, URINE 6.5 (5.0-8.5); SQUAMOUS EPITHELIAL CELL URINE 5 /hpf (0-5); URINE COLOR YELLOW (YELLW/STRAW); URINE LEUKOCYTE ESTERASE NEG (NEG)
--- NOTE | 2018-02-06 13:03 | HHI.HP ---
[facility] Service Family Medicine Primary Care Physician Non-Staff Admission Diagnosis chest pain, abdominal pain, nausea vomiting Diagnoses: International Travel<30 Days: No Contact w/Intl Traveler<30days: No Known Affected Area: No History of Present Illness Mrs. Graves is a 47-year-old female who presented to the ED with left-sided chest and shoulder pain. She states that she has had this pain in her left shoulder since Saturday (was a light pain at that time). However, it worsened last night. She describes the pain as feeling hot and worse with movement of her left arm. It started with epigastric pain in her abdomen which led to vomiting. She was able to go to sleep, but woke up at 4 AM with the same symptoms of vomiting, but the pain in her left shoulder worsened. No history of trauma to this shoulder. She has not experienced this before Saturday. When she has this pain she has a dizzy sensation that lasts for a few seconds. During this time she also felt cold and shaky. No sick contacts. No diarrhea. She also felt a sharp pain in her left chest. She endorses shortness of breath when she lays flat. She has to sleep with several pillows. She also feels short of breath when she is walking. When she went to see her doctor on Saturday he recommended she get an echocardiogram. She has not done this yet. She states that she has also had a headache since last night. Described it as feeling "light" in the frontal region of her head. She is also experiencing some blurry vision. (Cate Kern MD R1) Review of Systems Constitutional: COMPLAINS OF: Chills, Dizziness Eyes: COMPLAINS OF: Blurred vision Cardiovascular: COMPLAINS OF: Chest pain, PND, Orthopnea, DENIES: Lower Extremity Edema Gastrointestinal: COMPLAINS OF: Abdominal pain, Vomiting, DENIES: Black stools , Bloody stools, Diarrhea Musculoskeletal: COMPLAINS OF: Muscle aches Integumentary: DENIES: Rash Neurologic: COMPLAINS OF: Headache (Cate Kern MD R1) Past Family Social History Past Medical History Cirrhosis from alcoholism, paracentesis use to be q2 weeks, hasn't had to have one in 3 months Has a "leaky valve", unsure of which one (sees Dr. 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 Family History Father- cardiac hx, needed surgery Mother- of a stroke at 72 Social History Lives with and son Doesn't work outside the home No alcohol for 3 yrs, no tobacco use, no illicit drug use (Cate Kern MD R1) Physical Exam Vital Signs Vital Signs Date Time Temp Pulse Resp B/P (MAP) Pulse Ox O2 Delivery O2 Flow Rate FiO2 02/06/18 08:36 96 17 165/74 (104) 100 Room Air 02/06/18 08:31 98 Room Air 02/06/18 08:02 98.2 87 20 151/70 (97) 100 Physical Exam GENERAL: This is a well-nourished, well-developed female patient laying in bed, in no apparent distress. SKIN: No rashes, ecchymoses or lesions. Cool and dry. HEAD: Atraumatic. Normocephalic. No temporal tenderness. EYES: Pupils equal round and reactive. Extraocular motions intact. No scleral icterus. No injection or drainage. Stye on left upper eyelid ENT: Nose without bleeding, purulent drainage or septal hematoma. Throat without erythema, tonsillar hypertrophy or exudate. Uvula midline. Airway patent. NECK: Trachea midline. No JVD or lymphadenopathy. Supple, nontender, no meningeal signs. CARDIOVASCULAR: Regular rate and rhythm with 3/6 holosystolic murmur, no gallops , or rubs. RESPIRATORY: Clear to auscultation. Breath sounds equal bilaterally. No wheezes , rales, or rhonchi. GASTROINTESTINAL: Abdomen soft, non-tender, nondistended. No hepato-splenomegaly , or palpable masses. No guarding. MUSCULOSKELETAL: Extremities without clubbing, cyanosis, or edema. No calf tenderness. Tenderness to palpation over left lateral pectoralis and left trapezius muscles. Pain of left shoulder and active motion greater than 90. But full passive range of motion of left shoulder. Negative Hollis sign. NEUROLOGICAL: Awake and alert. Motor and sensory grossly within normal limits. Normal speech. Laboratory Laboratory Tests Test 02/06/18 08:19 02/06/18 10:27 White Blood Count 6.2 Red Blood Count 4.02 Hemoglobin 10.9 Hematocrit 32.7 Mean Corpuscular Volume 81.4 Mean Corpuscular Hemoglobin 27.2 Mean Corpuscular Hemoglobin Concent 33.4 Red Cell Distribution Width 17.6 Platelet Count 195 Mean Platelet Volume 7.7 Neutrophils (%) (Auto) 65.5 Lymphocytes (%) (Auto) 23.9 Monocytes (%) (Auto) 7.5 Eosinophils (%) (Auto) 2.3 Basophils (%) (Auto) 0.8 Neutrophils # (Auto) 4.1 Lymphocytes # (Auto) 1.5 Monocytes # (Auto) 0.5 Eosinophils # (Auto) 0.1 Basophils # (Auto) 0.0 CBC Comment DIFF FINAL Differential Comment Prothrombin Time 12.0 Prothromb Time International Ratio 1.2 Activated Partial Thromboplast Time 28.3 Blood Urea Nitrogen 11 Creatinine 0.75 Random Glucose 101 Calcium Level 8.6 Sodium Level 140 Potassium Level 3.6 Chloride Level 107 Carbon Dioxide Level 24.7 Anion Gap 8 Estimat Glomerular Filtration Rate 82 Total Bilirubin 1.1 Direct Bilirubin 0.3 Indirect Bilirubin 0.8 Aspartate Amino Transf (AST/SGOT) 18 Alanine Aminotransferase (ALT/SGPT) 16 Alkaline Phosphatase 89 Total Creatine Kinase 59 Troponin I LESS THAN 0.02 Total Protein 6.8 Albumin 3.2 Lipase 147 Urine Color YELLOW Urine Turbidity CLEAR Urine pH 6.5 Urine Specific [place] 1.018 Urine Protein NEG Urine Glucose (UA) NEG Urine Ketones TRACE Urine Occult Blood NEG Urine Nitrite NEG Urine Bilirubin NEG Urine Urobilinogen 4.0 Urine Leukocyte Esterase NEG Urine RBC 5 Urine WBC LESS THAN 1 Urine Squamous Epithelial Cells 5 Urine Bacteria RARE Urine Mucus FEW Microscopic Urinalysis Comment CULT NOT INDICATED (Cate Kern MD R1) Result Diagram: 02/06/18 0819 02/06/18 0819 Imaging Last Impressions Chest X-Ray 02/06/18 0000 Signed Impressions: Service Date/Time: January 08:25 - CONCLUSION: No acute disease. Samuel Delcid MD CT Angiography 02/06/18 0000 Signed Impressions: Service Date/Time: January 17:14 - CONCLUSION: 1. No evidence of acute pulmonary embolism or acute cardiopulmonary process. 2. Cirrhotic liver status post TIPS 3. Splenomegaly and moderate ascites. Luiz Vogel MD (Cate Kern MD R1) Caprini VTE Risk Assessment Caprini VTE Risk Assessment: Mod/High Risk (score >= 2) Caprini Risk Assessment Model Point Value = 1 Point Value = 2 Point Value = 3 Point Value = 5 Age 41-60 Minor surgery BMI > 25 kg/m2 Swollen legs Varicose veins or History of unexplained or recurrent spontaneous Oral contraceptives or hormone replacement Sepsis (< 1 month) Serious lung disease, including pneumonia (< 1 month) Abnormal pulmonary function Acute myocardial infarction Congestive heart failure (< 1 month) History of inflammatory bowel disease Medical patient at bed rest Age 61-74 Arthroscopic surgery Major open surgery (> 45 min) Laparoscopic surgery (> 45 min) Malignancy Confined to bed (> 72 hours) Immobilizing plaster cast Central venous access Age >= 75 History of VTE Family history of VTE Factor V Leiden Prothrombin [id number] Lupus anticoagulant Anticardiolipin antibodies Elevated serum homocysteine Heparin-induced thrombocytopenia Other congenital or acquired thrombophilia Stroke (< 1 month) Elective arthroplasty Hip, pelvis, or leg fracture Acute spinal cord injury (< 1 month) Prophylaxis Regimen Total Risk Factor Score Risk Level Prophylaxis Regimen 0-1 Low Early ambulation 2 Moderate Order ONE of the following: *Sequential Compression Device (SCD) *Heparin 5000 units SQ BID 3-4 Higher Order ONE of the following medications: *Heparin 5000 units SQ TID *Enoxaparin/Lovenox 40 mg SQ daily (WT < 150 kg, CrCl > 30 mL/min) *Enoxaparin/Lovenox 30 mg SQ daily (WT < 150 kg, CrCl > 10-29 mL/min) *Enoxaparin/Lovenox 30 mg SQ BID (WT < 150 kg, CrCl > 30 mL/min) AND/OR *Sequential Compression Device (SCD) 5 or more Highest Order ONE of the following medications: *Heparin 5000 units SQ TID (Preferred with Epidurals) *Enoxaparin/Lovenox 40 mg SQ daily (WT < 150 kg, CrCl > 30 mL/min) *Enoxaparin/Lovenox 30 mg SQ daily (WT < 150 kg, CrCl > 10-29 mL/min) *Enoxaparin/Lovenox 30 mg SQ BID (WT < 150 kg, CrCl > 30 mL/min) AND *Sequential Compression Device (SCD) (Cate Kern MD R1) Assessment and Plan Assessment and Plan 47-year-old female with a past medical history of cirrhosis presenting with left chest and shoulder pain. She was admitted to our service for observation. Code Status Full code Discussed Condition With Dr. Tom (Cate Kern MD R1) Attending Attestation Patient seen and examined. Case reviewed and discussed Please refer to resident H&P for further details regarding HPI, ROS, PMH, SurgHx , FH and SocHx In summary, patient is a pleasant 47yoF with a history of cirrhosis, s/p TIPS presenting with chest and shoulder pain. Patient's son is at the bedside. She reports she is better now than previously. Patient also had one episode of epigastric pain with associated vomiting which is now resolved. GENERAL: wdwn female, NAD, icelandic speaking SKIN: Warm and dry. HEAD: Normocephalic. AT EYES: No scleral icterus. No injection or drainage. NECK: Supple, trachea midline. No JVD or lymphadenopathy. CARDIOVASCULAR: Regular rate and rhythm without murmurs, gallops, or rubs. RESPIRATORY: Breath sounds equal bilaterally. No accessory muscle use. GASTROINTESTINAL: Abdomen soft, non-tender, nondistended. MUSCULOSKELETAL: No cyanosis, or edema. BACK: Nontender without obvious deformity. No CVA tenderness. A/P: 47yoF admitted with: Atypical chest pain/Epigastric pain, r/o ACS vs PE Hx Cirrhosis s/p TIPS Hx MDROs. Serial ekg/trop 2D echo Cardiology has been consulted, appreciate recs CTA to r/o PE with elevated DDimer Trend TB Patient seen and examined. Case reviewed and discussed Agree with plan of care as discussed with me and documented in the resident note (Christiana Peck MD) Problem List: (1) Chest pain ICD Codes: R07.9 - Chest pain, unspecified Status: Acute Plan: 47-year-old female presenting with left sided chest and shoulder pain. On physical examination this pain appeared to be musculoskeletal. However, will remain cautious. ACS versus musculoskeletal versus PE EKG on admission shows normal sinus rhythm. CXR on admission shows no acute disease -Troponin negative 2, check last troponin with corresponding EKG at 2029 -d-dimer elevated at 0.84, CTA shows no evidence of acute pulmonary embolus or acute cardiopulmonary process -Cardiology consult, appreciate recommendations -Check BMP and 2D echo -Nitroglycerin 0.4 mg SL -[place] for pain -Consult physical therapy for left shoulder with likely musculoskeletal cause for pain -Monitor with telemetry (2) Epigastric abdominal pain ICD Codes: R10.13 - Epigastric pain Status: Acute Plan: Patient with epigastric abdominal pain and vomiting since last night. Could be gastroenteritis versus GERD versus pancreatitis Lipase is normal at 147 -Convert patient's at home omeprazole to Protonix 40 mg p.o. daily -Zofran 4 mg IV every 6 as needed for nausea (3) Alcoholic cirrhosis of liver ICD Codes: K70.30 - Alcoholic cirrhosis of liver without ascites Plan: Recent status post TIPS procedure. Last paracentesis was 3 months ago. Patient is stable. CTA on admission showed moderate ascites Total bilirubin on admission slightly elevated at 1.1 along with direct bilirubin 0.3 -Continue at home spironolactone 100 mg p.o. daily -Continue at home furosemide 40 mg p.o. twice daily (4) Heart murmur ICD Codes: R01.1 - Cardiac murmur, unspecified Status: Chronic Plan: 3/6 holosystolic murmur heard on physical examination. Patient recently had seen her PCP who suggested an echocardiogram and patient also having symptoms of heart failure (orthopnea, PND, shortness of breath). Upon chart review records show patient has a history of severe tricuspid regurgitation and moderate mitral valve regurgitation. Arbitrator is Dr. Rizo. -2D complete echocardiogram (5) FEN Status: Acute Plan: Fluids: tolerating PO Electrolytes: monitor and replete as needed Nutrition: heart-healthy diet DVT Prophylaxis: Early ambulation. Heparin 5000U subQ q8hr GI Prophylaxis: Protonix as above (Cate Kern MD R1) Problem Qualifiers (1) Alcoholic cirrhosis of liver: Qualified Codes: K70.31 - Alcoholic cirrhosis of liver with ascites Cate Kern MD R1 Feb 06, 2018 13:03 Christiana Peck MD Feb 06, 2018 22:58
[2018-02-06] MEDS ORDERED: OMEP40CA2 PO (13:06)
[2018-02-06] MEDS ORDERED: FURO40TA PO (13:06)
--- NOTE | 2018-02-06 13:29 | EKG ---
Date Performed: 02/06/2018 Time Performed: 08:10:38 PTAGE: 47 years EKG: Sinus rhythm NORMAL ECG Since the PREVIOUS TRACING , no significant change noted PREVIOUS TRACING 02/08/2017 DOCTOR: Filiberto Lopez Interpretating Date/Time 02/06/2018 13:26:29
[2018-02-06] MEDS ORDERED: LACTULOSE SYRUP 20 GM/30 ML CUP PO PRN (13:30)
[2018-02-06] MEDS ORDERED: SODIUM CHLORIDE 0.9% FLUSH 10 ML FLUSH IV FLUSH PRN (13:30)
[2018-02-06] MEDS ORDERED: BISACODYL 10 MG SUPP RECTAL PRN (13:30)
[2018-02-06] MEDS ORDERED: ONDANSETRON HCL 4 MG/2 ML VIAL IVP PRN (13:30)
[2018-02-06] MEDS ORDERED: MAGNESIUM HYDROXIDE SUSP 30 ML CUP PO PRN (13:30)
[2018-02-06] MEDS ORDERED: ACETAMINOPHEN 325 MG TAB PO PRN (13:30)
[2018-02-06] MEDS ORDERED: NITROGLYCERIN 0.4 MG SL 25 TABS/BTL SL PRN (13:30)
[2018-02-06] MEDS ORDERED: SENNOSIDES 8.6 MG TAB PO PRN (13:30)
[2018-02-06] MEDS ORDERED: MORPHINE SULFATE 2 MG/ML SYRINGE IV PUSH PRN (13:30)
[2018-02-06] MEDS ORDERED: NALOXONE HCL 0.4 MG/ML AMP IV PUSH PRN ×2 (13:30)
[2018-02-06 16:35] VITALS: BP 108/59; PULSE 77; RESP 20; TEMP 99.8; O2SAT 99
[2018-02-06 17:12] VITALS: PULSE 72
[2018-02-06] MEDS ORDERED: IOHEXOL 350 MG/ML 10 ML VIAL (for RAD DIAG) IVCONTRAST ONE ×2 (17:14→17:24)
--- NOTE | 2018-02-06 17:41 | RADRPT ---
EXAM DATE/TIME: 02/06/2018 17:14 [place] COMPARISON: CT PULMONARY ANGIOGRAM, June 21, 2016, 17:47. INDICATIONS : Chest pain. IV CONTRAST: 75 cc Omnipaque 350 (iohexol) IV RADIATION DOSE: 8.34 CTDIvol (mGy) MEDICAL HISTORY : Cirrhosis. Hepatitis. SURGICAL HISTORY : Appendectomy. Cholecystectomy.Hysterectomy. ENCOUNTER: Initial ACUITY: 1 day PAIN SCALE: 5/10 LOCATION: Bilateral chest TECHNIQUE: Volumetric scanning of the chest was performed using a pulmonary embolism protocol MIP images were re constructed. Using automated exposure control and adjustment of the mA and/or kV according to patien t size, radiation dose was kept as low as reasonably achievable to obtain optimal diagnostic quality images. DICOM format image data is available electronically for review and comparison. Follow-up recommendations for detected pulmonary nodules are based at a minimum on nodule size and pa tient risk factors according to Fleischner Society Guidelines. FINDINGS: PULMONARY ARTERIES: No filling defects are seen in the pulmonary arteries through the segmental level. LUNGS: There is no consolidation or pneumothorax . No concerning pulmonary nodule is visualized. PLEURAE: There is no pleural thickening or pleural effusion. MEDIASTINUM: There is good visualization of the great vessels of the middle mediastinum. No evidence of mediastin al or hilar adenopathy/mass. MUSCULOSKELETAL: Within normal limits for patient age. MISCELLANEOUS: There is liver disease characteristic of cirrhosis is noted. A portal systemic shunt remains in place . Moderate amount of free fluid is identified in the abdomen. The spleen is enlarged. CONCLUSION: 1. No evidence of acute pulmonary embolism or acute cardiopulmonary process. 2. Cirrhotic liver status post TIPS 3. Splenomegaly and moderate ascites. Luiz Vogel MD on February 06, 2018 at 17:35 Board Certified Radiologist. This report was verified electronically.
--- NOTE | 2018-02-06 19:19 | MB ---
cc: Carlos Sharpe MD, Arthur W MD DATE: 02/06/2018 HISTORY OF PRESENT ILLNESS: Taisha is a very pleasant 47 year-old lady with history of cirrhosis of the liver who presents with chest pain. She only speaks Tajik. She says she feels much better now. She is no longer having chest pain. She did have an episode of shortness of breath, otherwise, denies any fevers, chills, cough, GI or bleeding, PND, orthopnea, syncope, or dizziness. PAST MEDICAL HISTORY: As per history of present illness. She has history of alcohol abuse and cirrhosis. Also includes weak bowel, hepatitis, laparoscopic cholecystectomy in 2015, appendectomy, , cholecystectomy. She is status post TIPS and paracentesis. SOCIAL HISTORY: Denies tobacco or alcohol use. ALLERGIES: MUSHROOM AND MULTIDRUG RESISTANT ORGANISM. MEDICATIONS PRIOR TO ADMISSION: Spironolactone 100 mg daily. PHYSICAL EXAMINATION: VITAL SIGNS: Blood pressure 108/59, pulse 77, respiratory rate 20, temperature 99.8, sats 99% on room air. GENERAL: She is alert and oriented x3, in no acute distress. NECK: Supple. No JVD. No bruit. CARDIOVASCULAR: S1, S2. No murmurs, rubs or gallops. LUNGS: Clear to auscultation bilaterally. ABDOMEN: Soft, nontender, nondistended with positive bowel sounds. EXTREMITIES: No lower extremity edema. IMAGING STUDIES Chest x-ray shows no acute disease. CT angiography: No evidence of acute pulmonary embolism or acute cardiopulmonary process, cirrhotic liver, status post TIPS, splenomegaly, moderate ascites. CARDIOLOGY STUDIES: EKG shows normal sinus rhythm at 84 beats per minute and is within normal limits. LABORATORY DATA: White count 6.2, hemoglobin 10.9, hematocrit 32.7, platelet count 195. INR is 1.2. Sodium 140, potassium 3.6, chloride 107, bicarbonate 24.7, BUN 11, creatinine 0.75. Total bilirubin was 1.1, direct bilirubin is 0.3. Troponin is less than 0.02 x 2. DIAGNOSES: 1. Atypical chest pain. 2. History of cirrhosis of the liver. 3. Elevated bilirubin. 4. Dyspnea. 5. Anemia. 6. History of prior alcohol abuse. DISCUSSION: The patient has no objective evidence of ischemia. The electrocardiogram and troponins are negative. Recommend continue serial troponins. We will follow trends and symptoms and hemodynamics. She had an episode of dyspnea; however, she is sating 100% on room air. We will check a BNP, check a 2-Dimensional echo. Further recommendations based on the trends, her symptoms and hemodynamics and troponin. MD SONALI Lopez/ , 06:57 PM , 07:18 PM
[2018-02-06 21:52] VITALS: BP 110/58; PULSE 77; RESP 16; TEMP 98.9; O2SAT 100
[2018-02-06] MEDS ORDERED: ALUMINUM/MAGNESIUM/SIMETH 30 ML CUP PO PRN (23:00)
[2018-02-06] MEDS: FUROSEMIDE 40 MG TAB PO SCH (23:32)
[2018-02-06] MEDS: PANTOPRAZOLE SOD 40 MG DELAYED RELEASE TAB PO SCH (23:32)
[2018-02-06] MEDS: HEPARIN SODIUM - SQ 10,000 UNITS/ML VIAL SQ SCH ×2 (23:32→23:37)
[2018-02-06] MEDS: DOCUSATE SODIUM 50 MG/SENNA 8.6 MG TAB PO SCH (23:37)
[2018-02-06] MEDS: SODIUM CHLORIDE 0.9% FLUSH 10 ML FLUSH IV FLUSH SCH (23:37)
[2018-02-06] MEDS: ACETAMINOPHEN/HYDROcodone 325 MG/5 MG TAB PO PRN (23:39)
[2018-02-07 00:29] VITALS: BP 107/53; PULSE 76; RESP 16; TEMP 98.3; O2SAT 99
[2018-02-07 03:29] VITALS: BP 98/52; PULSE 70; RESP 16; TEMP 97.8; O2SAT 100
[2018-02-07] MEDS: HEPARIN SODIUM - SQ 10,000 UNITS/ML VIAL SQ SCH ×2 (05:29→17:39)
[2018-02-07 07:45] LABS: AUTOMATED NEUTROPHIL # 2.5 TH/MM3 (1.8-7.7); BASOPHIL % 0.9 % (0.0-2.0); EOSINOPHIL # 0.2 TH/MM3 (0-0.4); EOSINOPHIL % 4.2 % (0.0-4.0); HEMATOCRIT 33.9 % (35.0-46.0); HEMOGLOBIN 11.1 GM/DL (11.6-15.3); LYMPH % 36.6 % (9.0-44.0); LYMPHOCYTE # 1.8 TH/MM3 (1.0-4.8); MEAN CELL VOLUME 81.7 FL (80.0-100.0); MEAN CORPUSCULAR HEMOGLOBIN 26.7 PG (27.0-34.0); MEAN CORPUSCULAR HGB CONC 32.7 % (32.0-36.0); MEAN PLATELET VOLUME 7.8 FL (7.0-11.0); MONO % 7.9 % (0.0-8.0); MONOCYTE # 0.4 TH/MM3 (0-0.9); NEUT % 50.4 % (16.0-70.0); PLATELET COUNT 176 TH/MM3 (150-450); RED BLOOD COUNT 4.15 MIL/MM3 (4.00-5.30); RED CELL DISTRIBUTION WIDTH 17.9 % (11.6-17.2); WHITE BLOOD COUNT 4.9 TH/MM3 (4.0-11.0)
[2018-02-07 08:00] VITALS: BP 108/61; PULSE 73; PULSE 75; RESP 16; TEMP 98.9; O2SAT 99
[2018-02-07 08:12] LABS: ALBUMIN 2.7 GM/DL (3.4-5.0); AST (GOT) 19 U/L (15-37); BICARBONATE 23.7 MEQ/L (21.0-32.0); BLOOD UREA NITROGEN 11 MG/DL (7-18); CALCIUM 8.3 MG/DL (8.5-10.1); CHLORIDE 108 MEQ/L (98-107); CREATININE 0.77 MG/DL (0.50-1.00); GLOMERULAR FILTRATION RATE 80 ML/MIN (>89); GLUCOSE,RANDOM 79 MG/DL (74-106); SODIUM (NA) 139 MEQ/L (136-145)
[2018-02-07 08:14] LABS: ALT (GPT) 14 U/L (10-53)
[2018-02-07 08:16] LABS: ALKALINE PHOSPHATASE 84 U/L (45-117); TOTAL BILIRUBIN ADULT 0.9 MG/DL (0.2-1.0); TOTAL PROTEIN 6.1 GM/DL (6.4-8.2)
[2018-02-07] MEDS ORDERED: SPIRONOLACTONE 100 MG TAB PO SCH (09:00)
[2018-02-07] MEDS: DOCUSATE SODIUM 50 MG/SENNA 8.6 MG TAB PO SCH (09:03)
[2018-02-07] MEDS: PANTOPRAZOLE SOD 40 MG DELAYED RELEASE TAB PO SCH (09:03)
[2018-02-07] MEDS: SODIUM CHLORIDE 0.9% FLUSH 10 ML FLUSH IV FLUSH SCH (09:04)
[2018-02-07] MEDS: FUROSEMIDE 40 MG TAB PO SCH ×2 (09:06→17:39)
[2018-02-07] MEDS: ACETAMINOPHEN/HYDROcodone 325 MG/5 MG TAB PO PRN ×2 (09:15→17:39)
[2018-02-07 13:03] VITALS: BP 108/56; PULSE 70; RESP 16; TEMP 98; O2SAT 96
[2018-02-07 15:50] VITALS: BP 109/59; PULSE 77; RESP 16; TEMP 98; O2SAT 98
--- NOTE | 2018-02-07 16:09 | HHI.FPPN ---
Subjective Remarks Doing well. No chest pain or palpations. Walking with PT without difficulty. Still with pain of left shoulder with overhead movements. (Fabian Funk MD, R3) Objective Vitals Vital Signs Date Time Temp Pulse Resp B/P (MAP) Pulse Ox O2 Delivery O2 Flow Rate FiO2 02/07/18 15:50 98.0 77 16 109/59 (76) 98 02/07/18 13:03 98.0 70 16 108/56 (73) 96 02/07/18 08:00 73 02/07/18 08:00 98.9 75 16 108/61 (77) 99 02/07/18 03:29 97.8 70 16 98/52 (67) 100 02/07/18 00:29 98.3 76 16 107/53 (71) 99 02/06/18 21:52 98.9 77 16 110/58 (75) 100 02/06/18 17:12 72 02/06/18 16:35 99.8 77 20 108/59 (75) 99 (Fabian Funk MD, R3) Result Diagram: 02/07/18 0702 02/07/18 0702 Imaging Last 72 hours Impressions Chest X-Ray 02/06/18 0000 Signed Impressions: Service Date/Time: January 08:25 - CONCLUSION: No acute disease. Samuel Delcid MD CT Angiography 02/06/18 0000 Signed Impressions: Service Date/Time: January 17:14 - CONCLUSION: 1. No evidence of acute pulmonary embolism or acute cardiopulmonary process. 2. Cirrhotic liver status post TIPS 3. Splenomegaly and moderate ascites. Luiz Vogel MD Objective Remarks GENERAL: Well-nourished, well-developed patient. SKIN: Warm and dry. HEAD: Normocephalic. EYES: No scleral icterus. No injection or drainage. NECK: Supple, trachea midline. No JVD or lymphadenopathy. CARDIOVASCULAR: Regular rate and rhythm without murmurs, gallops, or rubs. RESPIRATORY: Breath sounds equal bilaterally. No accessory muscle use. GASTROINTESTINAL: Abdomen soft, non-tender, nondistended. EXTREMITIES: No cyanosis, or edema. Pain of left arm with > 90 degrees abduction. NEUROLOGICAL: Awake, alert, and oriented x 3. Non-focal. (Fabian Funk MD, R3) A/P Assessment and Plan 47-year-old female with a past medical history of cirrhosis presenting with left chest and shoulder pain. She was admitted to our service for observation. (Fabian Funk MD, R3) Attending Attestation Patient seen and examined. Case reviewed and discussed Agree with plan of care as discussed with me and documented in the resident note. (Christiana Peck MD) Problem List: (1) Chest pain ICD Codes: R07.9 - Chest pain, unspecified Status: Acute Plan: 47-year-old female presenting with left sided chest and shoulder pain. On physical examination this pain appeared to be musculoskeletal. -Troponin negative 3 -d-dimer elevated at 0.84, CTA shows no evidence of acute pulmonary embolus or acute cardiopulmonary process -Cardiology consult, appreciate recommendations -Check BNP and 2D echo. Will follow up results. -Nitroglycerin 0.4 mg SL as needed -Strawn for pain -Consult physical therapy for left shoulder with likely musculoskeletal cause for pain. -Monitor with telemetry. (2) Epigastric abdominal pain ICD Codes: R10.13 - Epigastric pain Status: Acute Plan: Patient with epigastric abdominal pain and vomiting since last night. Could be gastroenteritis versus GERD versus pancreatitis Lipase is normal at 147 -Convert patient's at home omeprazole to Protonix 40 mg p.o. daily -Zofran 4 mg IV every 6 as needed for nausea (3) Alcoholic cirrhosis of liver ICD Codes: K70.30 - Alcoholic cirrhosis of liver without ascites Plan: Recent status post TIPS procedure. Last paracentesis was 3 months ago. Patient is stable. CTA on admission showed moderate ascites Total bilirubin on admission slightly elevated at 1.1 along with direct bilirubin 0.3 -Continue at home spironolactone 100 mg p.o. daily -Continue at home furosemide 40 mg p.o. twice daily (4) Heart murmur ICD Codes: R01.1 - Cardiac murmur, unspecified Status: Chronic Plan: 3/6 holosystolic murmur heard on physical examination. Patient recently had seen her PCP who suggested an echocardiogram and patient also having symptoms of heart failure (orthopnea, PND, shortness of breath). Upon chart review records show patient has a history of severe tricuspid regurgitation and moderate mitral valve regurgitation. Communications Technician is Dr. Rizo. -2D complete echocardiogram. Will follow up results prior to discharge. BNP WNL. (5) FEN Status: Acute Plan: Fluids: tolerating PO Electrolytes: monitor and replete as needed Nutrition: heart-healthy diet DVT Prophylaxis: Early ambulation. Heparin 5000U subQ q8hr GI Prophylaxis: Protonix as above SDW Dr. Peck. (Fabian Funk MD, R3) Problem Qualifiers (1) Alcoholic cirrhosis of liver: Qualified Codes: K70.31 - Alcoholic cirrhosis of liver with ascites Fabian Funk MD, R3 Feb 07, 2018 16:09 Christiana Peck MD Feb 10, 2018 14:00
[2018-02-07] MEDS ORDERED: NAPR500T2 PO (16:30)
--- NOTE | 2018-02-07 16:30 | HHI.DCPOC ---
Discharge Care Plan Diagnosis: (1) Heart murmur (2) Nausea & vomiting (3) Epigastric abdominal pain (4) Alcoholic cirrhosis of liver Goals to Promote Your Health * To prevent worsening of your condition and complications * To maintain your health at the optimal level Directions to Meet Your Goals Take your medications as prescribed Follow your dietary instruction Follow activity as directed Keep your appointments as scheduled Take your immunizations and boosters as scheduled If your symptoms worsen call your PCP, if no PCP go to Urgent Care Center or Emergency Room Smoking is Dangerous to Your Health. Avoid second hand smoke Call the 24-hour hour crisis hotline for domestic abuse at Fabian Funk MD, R3 Feb 07, 2018 16:30
--- NOTE | 2018-02-07 17:44 | ECHRPT ---
Indication: Chest Pain CONCLUSIONS The left ventricular systolic function is low normal with an estimated ejection fraction in the rang e of 50- 55%. Wall thickness is measured at the upper limits of normal. Normal left ventricular size. Mild thickening of the mitral valve leaflets. Mild mitral valve regurgitation. There is moderate tricuspid regurgitation. The estimated pulmonary arterial pressure is 32.3 mmHg. Trivial pulmonary valve regurgitation. BP: 108 / 59 HR: 72 Rhythm: Sinus MEASUREMENTS (Male / Female) Normal Values Technical Quality:Fair 2D ECHO LV Diastolic Diameter PLAX 4.9 cm 4.2 - 5.9 / 3.9 - 5.3 cm LV Systolic Diameter PLAX 3.0 cm IVS Diastolic Thickness 1.1 cm 0.6 - 1.0 / 0.6 - 0.9 cm LVPW Diastolic Thickness 0.9 cm 0.6 - 1.0 / 0.6 - 0.9 cm LV Relative Wall Thickness 0.4 RV Internal Dim ED PLAX 3.0 cm LVOT Diameter 2.0 cm LA Systolic Diameter LX 4.5 cm 3.0 - 4.0 / 2.7 - 3.8 cm M-MODE Aortic Root Diameter MM 2.5 cm LA Systolic Diameter MM 4.5 cm LA Ao Ratio MM 1.8 AV Cusp Separation MM 2.1 cm DOPPLER AV Peak Velocity 173.0 cm/s AV Peak Gradient 12.0 mmHg LVOT Peak Velocity 113.0 cm/s LVOT Peak Gradient 5.1 mmHg AV Area Cont Eq pk 2.1 cm MV Area PHT 2.8 cm Mitral E Point Velocity 81.9 cm/s Mitral A Point Velocity 51.8 cm/s Mitral E to A Ratio 1.6 LV E' Lateral Velocity 8.6 cm/s Mitral E to LV E' Lateral Ratio 9.5 LV E' Septal Velocity 7.2 cm/s Mitral E to LV E' Septal Ratio 11.4 TR Peak Velocity 236.0 cm/s TR Peak Gradient 22.3 mmHg Right Atrial Pressure 10.0 mmHg Pulmonary Artery Systolic Pressu 32.3 mmHg Right Ventricular Systolic Press 32.3 mmHg FINDINGS LEFT VENTRICLE The left ventricular systolic function is low normal with an estimated ejection fraction in the rang e of 50- 55%. Wall thickness is measured at the upper limits of normal. Normal left ventricular size. RIGHT VENTRICLE Normal right ventricular size and systolic function. LEFT ATRIUM The left atrial size is normal. RIGHT ATRIUM The right atrial size is normal. ATRIAL SEPTUM Normal atrial septal thickness without atrial level shunting by limited color doppler interrogation. AORTA The aortic root and proximal ascending aorta are normal in size on limited imaging. MITRAL VALVE Mild thickening of the mitral valve leaflets. Mild mitral valve regurgitation. AORTIC VALVE Trileaflet aortic valve. No aortic valve stenosis or regurgitation. TRICUSPID VALVE Structurally normal tricuspid valve. There is moderate tricuspid regurgitation. The estimated pulmonary arterial pressure is 32.3 mmHg. PULMONARY VALVE Trivial pulmonary valve regurgitation. VESSELS The inferior vena cava is normal in size. PERICARDIUM No pericardial effusion. Ottoniel Capone MD (Electronically Signed) Final Date:07 February 2018 17:43
--- NOTE | 2018-02-08 09:06 | EKG ---
Date Performed: 02/06/2018 Time Performed: 22:50:51 PTAGE: 47 years EKG: Sinus rhythm NORMAL ECG PREVIOUS TRACING : 02/06/2018 08.10 DOCTOR: Sukhi Gallegos Interpretating Date/Time 02/08/2018 09:03:21
== END 2018-02-07 18:51 | disposition home or self-care (01) ==
LOC: NEPE 07:54 → NEDA 12:38 → NEDH 13:19 → NEPHCDU 20:05
PROVIDERS: ADMIT Family Medicine; ATTEND Family Medicine
DX: R07.89 Other chest pain (principal); R10.13 Epigastric pain; K70.31 Alcoholic cirrhosis of liver with ascites; R42 Dizziness and giddiness; R06.02 Shortness of breath; R51 Headache; R01.1 Cardiac murmur, unspecified; I08.1 Rheumatic disorders of both mitral and tricuspid valves; M25.512 Pain in left shoulder; H53.8 Other visual disturbances; R16.1 Splenomegaly, not elsewhere classified
CPT/HCPCS: 71046; 71275; 80048; 80053; 80076; 81001; 82550; 83690; 83880; 84484; 85025; 85379; 85610; 85730; 93005; 93306; 96374; 96375; 97161; 99285; G0378; J1644; J2270; J2405; Q9967